=== PATIENT | female | born 1950 | race Caucasian/White ===

== ENCOUNTER 2016-10-30 04:18 | Inpatient (IN) | payer MEDICARE ==
[2016-10-30] MEDS ORDERED: SODIUM CHLORIDE 0.9% 1,000 ML IV STA (04:33)
[2016-10-30] MEDS ORDERED: ASPIRIN 81 MG CHEW PO STA (04:33)
--- NOTE | 2016-10-30 04:39 | ED ---
SOB HPI - General Chief Complaint: Chest Pain Stated Complaint: Chest Pain Time Seen by Provider: 10/30/16 04:29 Source: patient Mode of arrival: ambulatory Limitations: no limitations - History of Present Illness Initial Comments: This patient is a 66-year-old woman with history of congestive heart failure woke a little longer and hour ago feeling short of breath. She states that it also feels that her chest is tight. When the symptoms seem to be worsening rather than getting better she came here for treatment. Patient states she felt fine prior to going to bed last night MD Complaint: shortness of breath Onset/Timin -: hour(s) Severity: mild Quality: other (Tight) Consistency: constant Improves With: nothing Worsens With: lying flat Known History Of: congestive heart failure - Related Data Home Oxygen Therapy: No Home Medications Medication Instructions Recorded Confirmed Atorvastatin [Lipitor] 80 mg PO DAILY 12/29/13 04/21/15 Escitalopram [Lexapro] 10 mg PO DAILY 12/29/13 04/21/15 Ferrous Sulfate [Feosol] 325 mg PO TID 12/29/13 04/21/15 Furosemide [Lasix] 40 mg PO BID 12/29/13 04/21/15 Previous Rx's Medication Instructions Recorded Aspirin 325 mg PO DAILY tab 04/27/15 Famotidine [Pepcid] 20 mg PO DAILY tab 04/27/15 INSULIN LISPRO (humaLOG) [humaLOG 0 unit SQ ACHS vial 04/27/15 (formulary)] Isosorbide Mononitrate ER [Imdur] 120 mg PO DAILY tab.er.24h 04/27/15 Levofloxacin [Levaquin] 500 mg PO Q48H #5 tab 04/27/15 Magic Cup 1 each PO TID-W/MEALS cup 04/27/15 amLODIPine [Norvasc] 10 mg PO DAILY tab 04/27/15 cloNIDine 0.3 MG/24HR PATCH 1 patch TRANSDERM Q7D patch 04/27/15 [Catapres-TTS] hydrALAZINE HCL [Apresoline] 50 mg PO BID tab 04/27/15 Allergies Allergy/AdvReac Type Severity Reaction Status Date / Time morphine Allergy Unknown Verified 10/30/16 04:27 Review of Systems ROS Statement: Those systems with pertinent positive or pertinent negative responses have been documented in the HPI. ROS Other: All systems not noted in ROS Statement are negative. Constitutional: Denies: fever, chills, weakness Respiratory: Reports: as per HPI, dyspnea. Denies: cough, wheezes, hemoptysis Cardiovascular: Reports: as per HPI, chest pain, orthopnea. Denies: palpitations, edema, syncope Gastrointestinal: Denies: abdominal pain, nausea, vomiting Genitourinary: Denies: dysuria, hematuria Musculoskeletal: Denies: back pain Skin: Denies: rash Neurological: Denies: headache, weakness, numbness Past Medical History Past Medical History: CVA/TIA, Diabetes Mellitus, Hyperlipidemia, Hypertension, Myocardial Infarction ([place]) Additional Past Medical History / Comment(s): Breast cancer Last Myocardial Infarction Date:: unkn History of Any Multi-Drug Resistant Organisms: None Reported Past Surgical History: Breast Surgery, Section, Heart Catheterization With Stent, Hysterectomy Additional Past Surgical History / Comment(s): masectomy-bilateral Past Anesthesia/Blood Transfusion Reactions: No Reported Reaction Date of Last Stent Placement:: unkn Past Psychological History: No Psychological Hx Reported Smoking Status: Never smoker Past Alcohol Use History: None Reported Past Drug Use History: None Reported - Past Family History Father Family Medical History: Cancer (Lung), Coronary Artery Disease (CAD), Diabetes Mellitus Additional Family Medical History / Comment(s): Father of heart disease at age 63 yrs. Mother Family Medical History: Cancer (colon) Additional Family Medical History / Comment(s): Mother had colon cancer. Brother(s) Family Medical History: Cancer (Myelodysplasia), Diabetes Mellitus Sister(s) Family Medical History: Cancer (Breast, ovarian, lung) General Exam Limitations: no limitations General appearance: alert, anxious, in distress Head exam: Present: atraumatic, normocephalic Eye exam: Present: normal appearance. Absent: scleral icterus, conjunctival injection ENT exam: Present: normal oropharynx Respiratory exam: Present: normal lung sounds bilaterally. Absent: respiratory distress, wheezes, rales, rhonchi, stridor Cardiovascular Exam: Present: regular rate, normal rhythm, normal heart sounds. Absent: systolic murmur, diastolic murmur, rubs, gallop GI/Abdominal exam: Present: soft. Absent: distended, tenderness, guarding, rebound Extremities exam: Present: normal inspection, normal capillary refill. Absent: pedal edema, calf tenderness Back exam: Present: normal inspection. Absent: CVA tenderness (R), CVA tenderness (L) Neurological exam: Present: alert Skin exam: Present: warm, intact, normal color, diaphoretic. Absent: rash Course Vital Signs 10/30/16 10/30/16 10/30/16 04:23 04:52 04:57 Temperature 98.8 F Pulse Rate 85 86 82 Respiratory 18 20 20 Rate Blood Pressure 228/96 175/80 171/77 O2 Sat by Pulse 78 L 92 L Oximetry 10/30/16 10/30/16 10/30/16 05:10 05:58 06:13 Temperature Pulse Rate 89 78 74 Respiratory 18 18 18 Rate Blood Pressure 168/74 202/84 177/75 O2 Sat by Pulse 96 Oximetry 10/30/16 06:30 Temperature Pulse Rate 77 Respiratory 18 Rate Blood Pressure 180/75 O2 Sat by Pulse 94 L Oximetry Medical Decision Making - Lab Data Result diagrams: 10/30/16 04:50 10/30/16 04:50 Lab Results 10/30/16 10/30/16 10/30/16 Range/Units 04:50 04:50 04:50 WBC 13.8 H (3.8-10.6) k/uL RBC 3.84 (3.80-5.40) m/uL Hgb 11.1 L (11.4-16.0) gm/dL Hct 34.8 (34.0-46.0) % MCV 90.6 (80.0-100.0) fL MCH 28.8 (25.0-35.0) pg MCHC 31.8 (31.0-37.0) g/dL RDW 14.0 (11.5-15.5) % Plt Count 220 (150-450) k/uL Neutrophils % 81 % Lymphocytes % 12 % Monocytes % 4 % Eosinophils % 2 % Basophils % 0 % Neutrophils # 11.2 H (1.3-7.7) k/uL Lymphocytes # 1.6 (1.0-4.8) k/uL Monocytes # 0.5 (0-1.0) k/uL Eosinophils # 0.3 (0-0.7) k/uL Basophils # 0.1 (0-0.2) k/uL PT 9.8 (9.0-12.0) sec INR 1.0 (<1.2) APTT 23.3 (22.0-30.0) sec Sodium (137-145) mmol/L Potassium (3.5-5.1) mmol/L Chloride (98-107) mmol/L Carbon Dioxide (22-30) mmol/L Anion Gap mmol/L BUN (7-17) mg/dL Creatinine (0.52-1.04) mg/dL Est GFR (MDRD) Af Amer (>60 ml/min/1.73 sqM) Est GFR (MDRD) Non-Af (>60 ml/min/1.73 sqM) Glucose (74-99) mg/dL Calcium (8.4-10.2) mg/dL Magnesium (1.6-2.3) mg/dL Total Bilirubin (0.2-1.3) mg/dL AST (14-36) U/L ALT (9-52) U/L Alkaline Phosphatase (38-126) U/L Troponin I (0.000-0.034) ng/mL NT-Pro-B Natriuret Pep 5260 pg/mL Total Protein (6.3-8.2) g/dL Albumin (3.5-5.0) g/dL 10/30/16 10/30/16 Range/Units 04:50 04:50 WBC (3.8-10.6) k/uL RBC (3.80-5.40) m/uL Hgb (11.4-16.0) gm/dL Hct (34.0-46.0) % MCV (80.0-100.0) fL MCH (25.0-35.0) pg MCHC (31.0-37.0) g/dL RDW (11.5-15.5) % Plt Count (150-450) k/uL Neutrophils % % Lymphocytes % % Monocytes % % Eosinophils % % Basophils % % Neutrophils # (1.3-7.7) k/uL Lymphocytes # (1.0-4.8) k/uL Monocytes # (0-1.0) k/uL Eosinophils # (0-0.7) k/uL Basophils # (0-0.2) k/uL PT (9.0-12.0) sec INR (<1.2) APTT (22.0-30.0) sec Sodium 139 (137-145) mmol/L Potassium 4.5 (3.5-5.1) mmol/L Chloride 112 H (98-107) mmol/L Carbon Dioxide 14 L (22-30) mmol/L Anion Gap 13 mmol/L BUN 50 H (7-17) mg/dL Creatinine 2.80 H (0.52-1.04) mg/dL Est GFR (MDRD) Af Amer 20 (>60 ml/min/1.73 sqM) Est GFR (MDRD) Non-Af 17 (>60 ml/min/1.73 sqM) Glucose 172 H (74-99) mg/dL Calcium 8.8 (8.4-10.2) mg/dL Magnesium 1.9 (1.6-2.3) mg/dL Total Bilirubin 0.5 (0.2-1.3) mg/dL AST 18 (14-36) U/L ALT 28 (9-52) U/L Alkaline Phosphatase 81 (38-126) U/L Troponin I 0.050 H* (0.000-0.034) ng/mL NT-Pro-B Natriuret Pep pg/mL Total Protein 7.3 (6.3-8.2) g/dL Albumin 3.9 (3.5-5.0) g/dL Disposition Clinical Impression: Acute exacerbation of CHF (congestive heart failure), Chronic renal disease, Elevated troponin I measurement Disposition: ADMITTED IP TO THIS [facility] Condition: Poor Referrals: Karen Stephen III, MD [Primary Care Provider] - 1-2 days
[2016-10-30] MEDS: NITROGLYCERIN SL TABS 0.4 MG TAB SUBLINGUAL STA ×4 (04:48→05:11)
[2016-10-30 05:01] LABS: Basophils # (A) 0.1 k/uL (0-0.2); Basophils % (A) 0 %; CH 28.4; CHCM 31.6; Eosinophils # (A) 0.3 k/uL (0-0.7); Eosinophils % (A) 2 %; HCT 34.8 % (34.0-46.0); HDW 2.49; HGB 11.1 gm/dL (11.4-16.0); Luc # (Auto) 0.13; Luc % (Auto) 1; Lymphocytes # (A) 1.6 k/uL (1.0-4.8); Lymphocytes % (A) 12 %; MCH 28.8 pg (25.0-35.0); MCHC 31.8 g/dL (31.0-37.0); MCV 90.6 fL (80.0-100.0); Mean Platelet Volume 7.4; Monocytes # (A) 0.5 k/uL (0-1.0); Monocytes % (A) 4 %; Neutrophils # (A) 11.2 k/uL (1.3-7.7); Neutrophils % (A) 81 %; RBC 3.84 m/uL (3.80-5.40); WBC 13.8 k/uL (3.8-10.6)
[2016-10-30 05:15] LABS: Calcium 8.8 mg/dL (8.4-10.2); Magnesium 1.9 mg/dL (1.6-2.3); Potassium 4.5 mmol/L (3.5-5.1); Total Bilirubin 0.5 mg/dL (0.2-1.3); Total Protein 7.3 g/dL (6.3-8.2)
--- NOTE | 2016-10-30 05:32 | XR ---
EXAM: XR Chest, 1 View CLINICAL HISTORY: Reason: chest pain TECHNIQUE: Frontal view of the chest. COMPARISON: Radiographs the chest dated 04/23/2015 FINDINGS: Lungs: Bilateral perihilar infiltrates suggesting mild CHF. Asymmetric ill-defined subtle opacification of the left lower lung zone, which may represent a breast shadow. Pleural space: Unremarkable. No pneumothorax. Heart: The heart is again noted to be mildly enlarged. Mediastinum: Stable. Bones/joints: Osteopenia suggested. IMPRESSION: 1. Mild cardiomegaly with evidence of mild CHF. 2. Asymmetric ill-defined subtle opacification of the left lower lung zone, which likely represents breast shadow. If there is clinical concern for left lower lung zone pathology, - and lateral views of the chest recommended for further evaluation.
[2016-10-30] MEDS ORDERED: NITROGLYCERIN-D5W PMX 50 MG in DEXTROSE/WATER 1 250ML.BAG IV ONE (06:01)
[2016-10-30 06:09] LABS: Partial Thromboplastin Time 23.3 sec (22.0-30.0); Prothrombin Time 9.8 sec (9.0-12.0)
[2016-10-30] MEDS ORDERED: LEVOFLOXACIN 500 MG TAB PO SCH (06:15)
[2016-10-30] MEDS ORDERED: cloNIDine 0.3 MG/24HR PATCH 1 PATCH PATCH TRANSDERM SCH (06:15)
[2016-10-30] MEDS ORDERED: MAGIC CUP PO SCH (07:30)
[2016-10-30] MEDS ORDERED: ESCITALOPRAM 10 MG TAB PO SCH (09:00)
[2016-10-30] MEDS ORDERED: ISOSORBIDE MONONITRATE ER 60 MG TAB.ER.24H PO SCH (09:00)
[2016-10-30] MEDS ORDERED: hydrALAZINE HCL 50 MG TAB PO SCH (09:00)
[2016-10-30] MEDS ORDERED: FUROSEMIDE 40 MG TAB PO SCH (09:00)
[2016-10-30] MEDS ORDERED: HYDROCORTISONE 1% CREAM 30 GM TUBE TOPICAL PRN (10:56)
[2016-10-30] MEDS ORDERED: FUROSEMIDE 10 MG/ML 4 ML VIAL IV SCH (11:15)
[2016-10-30 11:38] LABS: Glucose,Whole Blood 174 mg/dL (75-99)
[2016-10-30] MEDS ORDERED: HEPARIN SODIUM,PORCINE 5,000 UNIT/ML 1 ML VIAL IV PRN (11:57)
[2016-10-30] MEDS ORDERED: HEPARIN SODIUM,PORCINE 5,000 UNIT/ML 1 ML VIAL IV ONE (12:15)
[2016-10-30 13:23] LABS: Creatine Kinase MB 1.5 ng/mL (0.0-2.4)
[2016-10-30 13:29] LABS: Troponin I 0.051 ng/mL (0.000-0.034)
--- NOTE | 2016-10-30 13:33 | NM ---
EXAMINATION TYPE: NM pul vent and perfuse DATE OF EXAM: 10/30/2016 COMPARISON: NONE HISTORY: Chest pain TECHNIQUE: Utilizing inhalation of 66.4 mCi Tc 99m DTPA aerosol and intravenous injection of 5.5 mCi of Tc 99m MAA, ventilation and perfusion images are acquired post injection in multiple projections. FINDINGS: There is fairly uniform normal ventilation and perfusion of the lungs. There is no mismatch. There is no segmental type perfusion defect. IMPRESSION: Normal exam. There is a very low probability of pulmonary embolism.
[2016-10-30] MEDS: ASPIRIN 325 MG TAB PO SCH (13:35)
[2016-10-30] MEDS: FAMOTIDINE 20 MG TAB PO SCH (13:35)
[2016-10-30] MEDS: ATORVASTATIN 80 MG TAB PO SCH (13:35)
[2016-10-30] MEDS: amLODIPine 10 MG TAB PO SCH (13:35)
[2016-10-30] MEDS: FERROUS SULFATE 325 MG TAB PO SCH ×3 (13:36→20:37)
[2016-10-30] MEDS: FUROSEMIDE 10 MG/ML 4 ML VIAL IV SCH ×2 (13:36→20:37)
[2016-10-30] MEDS: HEPARIN SODIUM,PORCINE/D5W PMX 25,000 UNIT in DEXTROSE/WATER 1 500ML.BAG IV SCH (13:37)
[2016-10-30] MEDS: hydrALAZINE HCL 25 MG TAB PO SCH ×2 (13:45→20:37)
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
--- NOTE | 2016-10-30 15:54 | US ---
EXAMINATION TYPE: US venous doppler duplex LE DATE OF EXAM: 10/30/2016 3:48 PM COMPARISON: NONE CLINICAL HISTORY: R/O DVT. Swelling 1 day earlier this week. Hx CHF SIDE PERFORMED: Bilateral TECHNIQUE: The lower extremity deep venous system is examined utilizing real time linear array sonog davida with graded compression, doppler sonography and color-flow sonography. VESSELS IMAGED: External Iliac Vein (EIV) Common Femoral Vein Deep Femoral Vein Greater Saphenous Vein * Femoral Vein Popliteal Vein Small Saphenous Vein * Proximal Calf Veins (* superficial vessels) Right Leg: Negative for DVT Left Leg: Negative for DVT IMPRESSION: Normal exam. No evidence of deep venous thrombosis in left and right leg.
[2016-10-30 17:03] LABS: Glucose,Whole Blood 148 mg/dL (75-99)
--- NOTE | 2016-10-30 18:03 | CONS ---
This is a 66 year lady with a known history of CAD, chronic CKD. She underwent stenting of the RCA performed by me a few years ago. She is under the care of Dr. Cervantes because of her chronic renal failure. She came into the hospital with three to four days history of weight gain, shortness of breath, also had some chest pressure when she came in. Upon her arrival, her blood pressure was elevated. She has been placed on nitroglycerine drip and creatinine remains 2.8. She also had elevated BNP and also elevated D. dimer. After arrival, her blood pressure has optimized. She is feeling better. She denies any chest discomfort. On arrival, her pressure was 228/96. Nitroglycerine was given. She is feeling better. Her shortness of breath has improved. However, she has elevated D. dimer and chronic kidney disease. Cannot exclude progression of CAD but risk of worsening renal failure is quite high with her chronic CKD. However, I am recommending that we will fully heparinize her, await input from nephrology regarding diuresis and we will perform a VQ scan to rule out pulmonary embolism and continue IV heparin for the time being. We will also obtain a venous Doppler and resume all her home medications. Her breathing is somewhat better. She denies chest pain at the time of my evaluation. Past medical history: 1. CAD with previous history of percutaneous coronary intervention of RCA. 2. Chronic kidney disease. 3. Hypertension. 4. History of diastolic dysfunction. 5. History of breast cancer, details are unclear. Medications at home include: 1. Insulin. 2. Aspirin. 3. Imdur. 4. Amlodipine. 5. Clonidine. 6. Hydralazine. 7. Lasix. 8. Atorvastatin. 9. Carvedilol 6.25 mg b.i.d. ALLERGIES: She is ALLERGIC TO MORPHINE. On examination, blood pressure is 170/80. Pulse rate is about 70 per minute and regular. HEENT unremarkable. Fundus was not examined by me. Neck is supple. There is JVD of about 1 cm. No carotid bruit. Heart exam reveals S1, S2 with a short systolic murmur. Lungs revealed bilateral decent air entry. Abdomen is soft. Nontender. Lower extremities revealed 1+ edema. Central nervous system is grossly within normal limits. EKG revealed sinus mechanism. IVCD, left ventricular hypertrophy type picture, leftward axis. Laboratory data suggests troponin of 0.05, subsequent troponins will be obtained. BNP is up to 50 to 60. D. dimer is 3.21. The patient's white count is also elevated up to 13.8 but chest x-ray reveals mostly evidence of cardiomegaly with mild CHF. There is question of left lower lung opacification , cannot rule out infiltrate. IMPRESSION: 1. Exacerbation of congestion failure in a patient with chronic kidney disease. 2. Progression of chronic kidney disease with mild acute component. 3. History of coronary artery disease, previous RCA PCI. 4. Type 2 diabetes mellitus. 5. Hypertension. RECOMMENDATIONS: I am recommending that we continue current medications but wean off the IV nitroglycerine. Put her on Nitro paste. We will also give her IV heparin as per protocol. Obtain a VQ scan. Venous Doppler. Resume home medications. Additional troponins will be checked. Seek input from nephrology. Prognosis for this patient is somewhat guarded because of her multiple comorbid conditions. YESY
[2016-10-30 19:02] LABS: Troponin I 0.056 ng/mL (0.000-0.034)
[2016-10-30 20:50] LABS: Glucose,Whole Blood 171 mg/dL (75-99)
[2016-10-30] MEDS ORDERED: NITROGLYCERIN SL TABS 0.4 MG TAB SUBLINGUAL ONE (23:55)
[2016-10-31] MEDS: NITROGLYCERIN SL TABS 0.4 MG TAB SUBLINGUAL STA ×2 (00:03→00:19)
[2016-10-31] MEDS ORDERED: HYDROmorphone 1 MG/ML 1 ML SYRINGE IVP STA (00:37)
[2016-10-31] MEDS ORDERED: amLODIPine 5 MG TAB PO STA (00:38)
[2016-10-31] MEDS ORDERED: CARVEDILOL 6.25 MG TAB PO STA (00:40)
[2016-10-31 05:57] LABS: Glucose,Whole Blood 182 mg/dL (75-99)
[2016-10-31 06:38] LABS: Basophils % (A) 0 %; CH 28.3; CHCM 30.3; Eosinophils # (A) 0.2 k/uL (0-0.7); Eosinophils % (A) 2 %; HCT 31.3 % (34.0-46.0); HDW 2.33; HGB 9.7 gm/dL (11.4-16.0); Hypochromasia Moderate; Luc # (Auto) 0.13; Luc % (Auto) 1; Lymphocytes # (A) 1.3 k/uL (1.0-4.8); Lymphocytes % (A) 13 %; MCHC 30.9 g/dL (31.0-37.0); MCV 93.7 fL (80.0-100.0); Mean Platelet Volume 7.8; Monocytes # (A) 0.4 k/uL (0-1.0); Monocytes % (A) 4 %; Neutrophils # (A) 8.2 k/uL (1.3-7.7); Neutrophils % (A) 80 %; RBC 3.34 m/uL (3.80-5.40); WBC 10.3 k/uL (3.8-10.6); WBC (Perox) 10.71
[2016-10-31] MEDS ORDERED: cloNIDine HCL 0.2 MG TAB PO STA (06:43)
[2016-10-31 06:46] LABS: Calcium 8.7 mg/dL (8.4-10.2); Potassium 4.4 mmol/L (3.5-5.1)
[2016-10-31] MEDS: HEPARIN SODIUM,PORCINE/D5W PMX 25,000 UNIT in DEXTROSE/WATER 1 500ML.BAG IV SCH (07:03)
[2016-10-31] MEDS ORDERED: CARVEDILOL 6.25 MG TAB PO SCH ×2 (07:30)
[2016-10-31 08:03] LABS: Hemoglobin A1C 7.5 % (4.2-6.1)
[2016-10-31] MEDS: ESCITALOPRAM 20 MG TAB PO SCH (08:48)
[2016-10-31] MEDS: amLODIPine 10 MG TAB PO SCH (08:48)
[2016-10-31] MEDS: ATORVASTATIN 80 MG TAB PO SCH (08:48)
[2016-10-31] MEDS: ASPIRIN 325 MG TAB PO SCH (08:48)
[2016-10-31] MEDS: ALLOPURINOL 100 MG TAB PO SCH (08:48)
[2016-10-31] MEDS: FERROUS SULFATE 325 MG TAB PO SCH ×3 (08:49→17:34)
[2016-10-31] MEDS: FAMOTIDINE 20 MG TAB PO SCH (08:49)
[2016-10-31] MEDS: FUROSEMIDE 10 MG/ML 4 ML VIAL IV SCH ×2 (08:50→20:14)
[2016-10-31] MEDS: hydrALAZINE HCL 25 MG TAB PO SCH ×3 (08:51→20:14)
[2016-10-31] MEDS: LOSARTAN 50 MG TAB PO SCH (08:52)
[2016-10-31] MEDS ORDERED: ISOSORBIDE MONONITRATE ER 30 MG TAB.ER.24H PO SCH (09:00)
[2016-10-31] MEDS ORDERED: ISOSORBIDE MONONITRATE ER 30 MG TAB.ER.24H PO ONE (10:00)
[2016-10-31] MEDS ORDERED: hydrALAZINE HCL 20 MG/ML 1 ML VIAL IVP PRN (10:32)
--- NOTE | 2016-10-31 10:33 | P.NPCON ---
History of Present Illness - History of Present Illness Reason for consultation: Acute kidney injury on chronic kidney disease History of present illness: Patient is a 66-year-old female seen in renal consultation for acute kidney injury on chronic any disease. Patient has chronic kidney disease stage IV secondary to diabetic kidney disease and nephrosclerosis with baseline creatinine near 2.5. Her creatinine today is at 2.86. Patient presented to the hospital with dyspnea thus been going on for the last few days and suddenly became worse which prompted her to come to the hospital. She is known to have an ejection fraction of 30%. Patient states she takes Lasix 40 mg once daily. She denies any history of smoking and is now history of COPD. Her chest x-ray did suggest mild vascular congestion and she is currently on Lasix 40 mg IV twice daily. Her dyspnea is improved. Denies lower extremity edema. Denies use of NSAIDs. Denies vomiting or diarrhea. She follows with us as an outpatient and is currently not interested in renal replacement therapy however is considering peritoneal dialysis. Vital signs are stable. General: The patient appeared well nourished and normally developed. HEENT: Head exam is unremarkable. Neck is without jugular venous distension. LUNGS: Lungs are clear to auscultation and percussion. Breath sounds decreased. HEART: Rate and Rhythm are regular. First and second heart sounds normal. No murmurs, rubs or gallops. ABDOMEN: Abdominal exam reveals normal bowel sounds. Non-tender and non- distended. No evidence of peritonitis. EXTREMITITES: No clubbing, cyanosis, or edema. Past Medical History Past Medical History: CVA/TIA, Diabetes Mellitus, Hyperlipidemia, Hypertension, Myocardial Infarction ([place]) Additional Past Medical History / Comment(s): Breast cancer Last Myocardial Infarction Date:: 2010 History of Any Multi-Drug Resistant Organisms: None Reported Past Surgical History: Breast Surgery, Section, Heart Catheterization With Stent, Hysterectomy Additional Past Surgical History / Comment(s): masectomy-bilateral Past Anesthesia/Blood Transfusion Reactions: Previous Problems w/ Anesthesia Additional Past Anesthesia/Blood Transfusion Reaction / Comment(s): "hard time waking up from anestheia" Date of Last Stent Placement:: 2010 Past Psychological History: Depression Additional Psychological History / Comment(s): increased dose of lexapro-sees counselor Smoking Status: Never smoker Past Alcohol Use History: None Reported Past Drug Use History: None Reported - Past Family History Father Family Medical History: Cancer, Coronary Artery Disease (CAD), Diabetes Mellitus Additional Family Medical History / Comment(s): Father of heart disease at age 63 yrs. Mother Family Medical History: Cancer Additional Family Medical History / Comment(s): Mother had colon cancer. Brother(s) Family Medical History: Cancer, Diabetes Mellitus Sister(s) Family Medical History: Cancer Medications and Allergies Home Medications Medication Instructions Recorded Confirmed Type Atorvastatin [Lipitor] 80 mg PO DAILY 12/29/13 04/21/15 History Furosemide [Lasix] 40 mg PO DAILY 12/29/13 10/30/16 History Allopurinol [Zyloprim] 200 mg PO DAILY 10/30/16 10/30/16 History Biotin 5 mg PO DAILY 10/30/16 10/30/16 History Calcitriol [Rocaltrol] 0.5 mcg PO MOWEFR 10/30/16 10/30/16 History Carvedilol [Coreg] 6.25 mg PO DAILY 10/30/16 10/30/16 History Escitalopram [Lexapro] 20 mg PO DAILY 10/30/16 10/30/16 History Hydrocortisone Cream 1 applic TOPICAL BID PRN 10/30/16 10/30/16 History [Hydrocortisone 2.5% Cream] Isosorbide Mononitrate ER [Imdur] 30 mg PO DAILY 10/30/16 10/30/16 History Losartan Potassium [Cozaar] 50 mg PO DAILY 10/30/16 10/30/16 History Allergies Allergy/AdvReac Type Severity Reaction Status Date / Time morphine Allergy Unknown Verified 10/30/16 08:19 Physical Exam Vitals: Vital Signs Temp Pulse Pulse Resp BP Pulse Ox 10/31/16 06:12 98.3 F 78 18 186/82 93 L 10/31/16 04:00 99.4 F 79 18 184/78 10/31/16 00:24 92 185/80 10/31/16 00:17 93 214/91 10/31/16 00:07 91 214/92 10/31/16 00:01 97.5 F L 86 18 205/78 93 L 10/31/16 00:00 18 10/30/16 20:00 98.1 F 74 18 191/90 93 L 10/30/16 16:00 98 F 71 16 159/58 95 07/16/17 12:00 98 F 71 16 190/78 95 Intake and Output 10/30/16 10/31/16 10/31/16 22:59 06:59 14:59 Intake Total 99.333 180.058 396.817 Output Total 600 450 Balance -500.667 -269.942 396.817 Intake: Intake, IV Titration 99.333 180.058 396.817 Amount Heparin Sodium,Porcine/ 99.333 180.058 156.817 D5w Pmx 25,000 unit In Dextrose/Water 1 500ml. bag @ 10.776 UNITS/KG/HR 20 mls/hr IV .Q24H BC Rx #:[id number] Sodium Chloride 0.9% 1, 240 000 ml @ 20 mls/hr IV . Q24H STA Rx#:[id number] Output: Urine 600 450 Other: Voiding Method Toilet Toilet # Voids 1 Weight 92.4 kg Results - Lab Results Most recent lab results Calcium 8.7 mg/dL (8.4-10.2) 10/31/16 05:53 Magnesium 1.9 mg/dL (1.6-2.3) 10/30/16 04:50 10/31/16 05:53 10/31/16 05:53 Assessment and Plan Plan: Assessment: #1. Nonoliguric acute kidney injury mostly prerenal from diuresis. Creatinine 2.86 today. #2. Chronic kidney disease stage IV secondary to diabetic kidney disease and nephrosclerosis with baseline creatinine near 2.5. #3. Volume overload. #4. Systolic CHF with ejection fraction of 30%. #5. Anemia. Rule out iron deficiency. #6. Metabolic acidosis secondary to chronic kidney disease. #7. Hypertension with chronic kidney disease. Uncontrolled. Plan: Continue Lasix 40 mg IV twice daily for now. Avoid nephrotoxic agents and hypotensive episodes. Check iron studies. Add oral sodium bicarbonate supplementation. Add hydralazine 10 mg IV every 4 hours as needed for systolic blood pressure greater than 160. Repeat electrolytes in the morning. Thank you for the consultation. I will continue to follow the patient with you during her hospital stay.
--- NOTE | 2016-10-31 11:42 | ECHOF ---
Referral Reason:Heart Failure MEASUREMENTS -------- HEIGHT: 160.0 cm WEIGHT: 92.1 kg BP: 186/82 RVIDd: 3.1 cm (< 3.3) IVSd: 1.5 cm (0.6 - 1.1) LVIDd: 5.0 cm (3.9 - 5.3) LVPWd: 1.7 cm (0.6 - 1.1) IVSs: 1.9 cm LVIDs: 3.5 cm LVPWs: 1.4 cm LAESV Index (A-L): 32.53 ml/m Ao Diam: 2.7 cm (2.0 - 3.7) AV Cusp: 1.9 cm (1.5 - 2.6) LA Diam: 5.2 cm (2.7 - 3.8) MV E Murray: 0.98 m/s MV DecT: 282 ms MV A Murray: 0.84 m/s MV E/A Ratio: 1.16 FINDINGS -------- Sinus rhythm. This was a techncally difficult study with suboptimal views, , Definity utilized for enhancement of images. The left ventricular size is normal. There is moderate concentric left ventricular hypertrophy. Overall left ventricular systolic function is normal with, an EF between 55 - 60 %. The right ventricle is normal in size. LA is midly dilated 29-33ml/m2. The right atrial size is normal. 1.5MG OF DEFINITY UTLIZED: 2 OR MORE WALL SEGMENTS NOT VISUALIZED. The aortic valve was not well visualized. There is no evidence of aortic regurgitation. Mild mitral annular calcification present. Mild mitral regurgitation is present. Mild tricuspid regurgitation present. There is no evidence of pulmonary hypertension. The right ventricular systolic pressure, as measured by Doppler, is {RVSP}. The pulmonic valve was not well visualized. There is no pulmonic regurgitation present. The aortic root size is normal. There is no pericardial effusion. CONCLUSIONS -------- 1. Sinus rhythm. 2. Mild tricuspid regurgitation present. 3. There is no evidence of pulmonary hypertension. 4. There is no pulmonic regurgitation present. 5. The aortic root size is normal. 6. There is no pericardial effusion. 7. This was a techncally difficult study with suboptimal views, , Definity utilized for enhancement of images. 8. There is moderate concentric left ventricular hypertrophy. 9. Overall left ventricular systolic function is normal with, an EF between 55 - 60 %. 10. LA is midly dilated 29-33ml/m2. 11. 1.5MG OF DEFINITY UTLIZED: 2 OR MORE WALL SEGMENTS NOT VISUALIZED. 12. The aortic valve was not well visualized. 13. Mild mitral annular calcification present. 14. Mild mitral regurgitation is present. MECHANICAL ESTIMATOR: Juany Gallardo RDCS
[2016-10-31 12:00] LABS: Glucose,Whole Blood 164 mg/dL (75-99)
[2016-10-31 12:20] LABS: % Iron Saturation 17.2 % (20-50)
[2016-10-31 14:18] VITALS: BMI 36.1
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
[2016-10-31] MEDS ORDERED: BENZOCAINE/MENTHOL LOZENG 1 EACH LOZENGE MUCOUS MEM PRN (15:43)
[2016-10-31 16:29] LABS: Glucose,Whole Blood 157 mg/dL (75-99)
[2016-10-31] MEDS: CARVEDILOL 12.5 MG TAB PO SCH (16:50)
--- NOTE | 2016-10-31 18:15 | PN ---
This patient is 66 years of age, has chronic kidney disease, diabetes, hypertension, previous PCI. Her troponin profile does not suggest myocardial injury. She has had difficulty to control blood pressure which has been addressed. BP is much better now. I added Clonidine to her regimen. Vital signs are stable. S1, S2 are heard normally. Lungs revealed improved air entry. Abdomen and lower extremity exam is unremarkable. I explained to the patient and that that doing a cardiac catheterization at this time would probably hurt her kidneys and that the troponin elevation is not significant and symptoms also suggest more of a hypertension and shortness of breath with some volume overload type picture. I will await input from nephrology. No intervention cardiac alvarez. We will control blood pressure and continue current medications. Physical exam-alvarez, there are no new significant findings. Blood pressure last one was 135/70. S1, S2 heard normally. Short systolic murmur noted . Lungs revealed improved air entry. JVD is 1 cm. The rest of the physical examination is unchanged. MTDD
[2016-10-31] MEDS: SODIUM BICARBONATE TAB 650 MG TAB PO SCH (20:14)
[2016-10-31 20:43] LABS: Glucose,Whole Blood 179 mg/dL (75-99)
[2016-10-31] MEDS ORDERED: cloNIDine HCL 0.2 MG TAB PO SCH (21:00)
[2016-11-01 05:57] LABS: Glucose,Whole Blood 162 mg/dL (75-99)
[2016-11-01 06:49] LABS: Basophils % (A) 0 %; CH 28.5; CHCM 31.7; Eosinophils # (A) 0.2 k/uL (0-0.7); Eosinophils % (A) 2 %; HCT 28.6 % (34.0-46.0); HDW 2.29; Luc # (Auto) 0.12; Luc % (Auto) 1; Lymphocytes # (A) 1.6 k/uL (1.0-4.8); Lymphocytes % (A) 16 %; MCH 28.4 pg (25.0-35.0); MCHC 31.4 g/dL (31.0-37.0); MCV 90.4 fL (80.0-100.0); Monocytes # (A) 0.4 k/uL (0-1.0); Monocytes % (A) 4 %; Neutrophils # (A) 7.2 k/uL (1.3-7.7); Neutrophils % (A) 76 %; RBC 3.16 m/uL (3.80-5.40); RDW 14.1 % (11.5-15.5); WBC 9.5 k/uL (3.8-10.6); WBC (Perox) 10.12
[2016-11-01] MEDS: FERROUS SULFATE 325 MG TAB PO SCH (06:51)
[2016-11-01] MEDS: CARVEDILOL 12.5 MG TAB PO SCH (06:51)
[2016-11-01 07:32] LABS: Calcium 8.4 mg/dL (8.4-10.2); Magnesium 1.8 mg/dL (1.6-2.3); Potassium 4.2 mmol/L (3.5-5.1)
[2016-11-01] MEDS: FUROSEMIDE 10 MG/ML 4 ML VIAL IV SCH (08:57)
[2016-11-01] MEDS: ALLOPURINOL 100 MG TAB PO SCH (08:57)
[2016-11-01] MEDS: ASPIRIN 325 MG TAB PO SCH (08:58)
[2016-11-01] MEDS: ESCITALOPRAM 20 MG TAB PO SCH (08:58)
[2016-11-01] MEDS: FAMOTIDINE 20 MG TAB PO SCH (08:58)
[2016-11-01] MEDS: LOSARTAN 50 MG TAB PO SCH (08:58)
[2016-11-01] MEDS: SODIUM BICARBONATE TAB 650 MG TAB PO SCH (08:58)
[2016-11-01] MEDS: hydrALAZINE HCL 25 MG TAB PO SCH (08:58)
[2016-11-01] MEDS: amLODIPine 10 MG TAB PO SCH (08:58)
[2016-11-01] MEDS: ATORVASTATIN 80 MG TAB PO SCH (09:00)
[2016-11-01] MEDS ORDERED: ISOSORBIDE MONONITRATE ER 60 MG TAB.ER.24H PO SCH (09:00)
[2016-11-01 09:30] VITALS: RESP 18
[2016-11-01 11:27] LABS: Glucose,Whole Blood 149 mg/dL (75-99)
[2016-11-01 12:12] VITALS: BP 128/58; PULSE 75; TEMP 98.3
--- NOTE | 2016-11-01 12:23 | P.PN ---
Subjective Patient is seen in follow-up for acute kidney injury on chronic kidney disease. Patient has chronic kidney disease stage IV secondary to diabetic kidney disease and nephrosclerosis with baseline creatinine near 2.5. Creatinine is elevated at 3.22 today. Her dyspnea is resolved. She denies any chest pain. No lower extremity edema. Admits to good urine output. No vomiting or diarrhea. Vital signs are stable. General: The patient appeared well nourished and normally developed. HEENT: Head exam is unremarkable. Neck is without jugular venous distension. LUNGS: Lungs are clear to auscultation and percussion. Breath sounds decreased. HEART: Rate and Rhythm are regular. First and second heart sounds normal. No murmurs, rubs or gallops. ABDOMEN: Abdominal exam reveals normal bowel sounds. Non-tender and non- distended. No evidence of peritonitis. EXTREMITITES: No clubbing, cyanosis, or edema. Objective - Vital Signs Vital signs: Vital Signs Temp 98.3 F 11/01/16 12:00 Pulse 75 11/01/16 12:00 Resp 18 11/01/16 12:00 BP 128/58 11/01/16 12:00 Pulse Ox 99 11/01/16 12:00 Intake & Output 10/31/16 11/01/16 11/01/16 18:59 06:59 18:59 Intake Total 1476.817 120 270 Output Total 400 Balance 1076.817 120 270 Weight 92.4 kg 93.3 kg Intake: IV 120 Sodium Chloride 0.9% 1, 120 000 ml @ 20 mls/hr IV . Q24H STA Rx#:[id number] Intake, IV Titration 396.817 Amount Heparin Sodium,Porcine/ 156.817 D5w Pmx 25,000 unit In Dextrose/Water 1 500ml. bag @ 10.776 UNITS/KG/HR 20 mls/hr IV .Q24H BC Rx #:[id number] Sodium Chloride 0.9% 1, 240 000 ml @ 20 mls/hr IV . Q24H STA Rx#:[id number] Oral 1080 270 Output: Urine 400 Other: Voiding Method Toilet Toilet # Voids 3 200 - Labs CBC & Chem 7: 11/01/16 06:25 11/01/16 06:25 Labs: Abnormal Lab Results - Last 24 Hours (Table) 10/31/16 10/31/16 10/31/16 Range/Units 05:53 16:27 20:41 RBC (3.80-5.40) m/uL Hgb (11.4-16.0) gm/dL Hct (34.0-46.0) % APTT (22.0-30.0) sec Sodium (137-145) mmol/L Chloride (98-107) mmol/L Carbon Dioxide (22-30) mmol/L BUN (7-17) mg/dL Creatinine (0.52-1.04) mg/dL Glucose (74-99) mg/dL POC Glucose (mg/dL) 157 H 179 H (75-99) mg/dL TIBC 215 L (265-497) ug/dL % Saturation 17.2 L (20-50) % 11/01/16 11/01/16 11/01/16 Range/Units 05:56 06:25 06:25 RBC 3.16 L (3.80-5.40) m/uL Hgb 9.0 L (11.4-16.0) gm/dL Hct 28.6 L (34.0-46.0) % APTT 45.9 H (22.0-30.0) sec Sodium (137-145) mmol/L Chloride (98-107) mmol/L Carbon Dioxide (22-30) mmol/L BUN (7-17) mg/dL Creatinine (0.52-1.04) mg/dL Glucose (74-99) mg/dL POC Glucose (mg/dL) 162 H (75-99) mg/dL TIBC (265-497) ug/dL % Saturation (20-50) % 11/01/16 11/01/16 Range/Units 06:25 11:26 RBC (3.80-5.40) m/uL Hgb (11.4-16.0) gm/dL Hct (34.0-46.0) % APTT (22.0-30.0) sec Sodium 136 L (137-145) mmol/L Chloride 108 H (98-107) mmol/L Carbon Dioxide 15 L (22-30) mmol/L BUN 61 H (7-17) mg/dL Creatinine 3.22 H (0.52-1.04) mg/dL Glucose 151 H (74-99) mg/dL POC Glucose (mg/dL) 149 H (75-99) mg/dL TIBC (265-497) ug/dL % Saturation (20-50) % Assessment and Plan Plan: Assessment: #1. Nonoliguric acute kidney injury mostly prerenal from diuresis. Creatinine 3.22 today. #2. Chronic kidney disease stage IV secondary to diabetic kidney disease and nephrosclerosis with baseline creatinine near 2.5. #3. Volume overload. #4. Diastolic CHF. Echocardiogram this admission revealed preserved ejection fraction. #5. Anemia. Iron deficiency present. #6. Metabolic acidosis secondary to chronic kidney disease. #7. Hypertension with chronic kidney disease. Controlled. Plan: Hold tonight's dose of Lasix. Will resume 40 mg orally once daily starting tomorrow. Avoid nephrotoxic agents and hypotensive episodes. Ferrlicit 125 mg IV once today. Maintain oral sodium bicarbonate supplementation. Patient is not too keen on renal replacement therapy however is considering peritoneal dialysis.
[2016-11-01] MEDS ORDERED: SODIUM FERRIC GLUCONAT-SUCROSE 125 MG in SODIUM CHLORIDE 0.9% 100 ML IVPB SCH (13:00)
[2016-11-01] MEDS ORDERED: SODIUM BICARBONATE TAB 650 MG TAB PO SCH (16:00)
--- NOTE | 2016-11-01 17:31 | PN ---
Mrs. Luu is doing better today. Her diuresis has improved her edema. She feels better. Her blood pressure control is optimized; however, with the clonidine she felt very sleepy, and we will therefore leave her on hydralazine only. Blood pressure is 128/70, pulse rate 70 per minute. S1, S2 heard normally. Short systolic murmur noted. Lungs are clear. Abdomen and lower extremity exam unchanged. Creatinine has gone up. From a cardiac standpoint, no intervention necessary. She can be discharged whenever it is okay with her admitting physician and social security specialist. Cardiac-alvarez, I am not recommending any intervention, and her troponin profile does not suggest any myocardial injury. She will have definitely worsening of her renal function. Echocardiogram from yesterday revealed a preserved ejection fraction of 55% to 60% with normal right ventricular size and no significant pulmonary hypertension. Will therefore continue current medical therapy. YESY
[2016-11-01] MEDS ORDERED: HEPARIN SODIUM,PORCINE 5,000 UNIT/ML 1 ML VIAL SQ SCH (21:00)
--- NOTE | 2016-11-02 16:03 | P.DS ---
Providers Date of admission: 10/30/16 06:11 Expected date of discharge: 11/01/16 Attending physician: Huber Loredo Consults: 10/30/16 06:11 Consult Physician Routine Consulting Provider: Edwin Rivera Consult Reason/Comments: chf exacerbation. minimally elevated troponin. Do you want consulting provider notified?: Yes 10/30/16 12:01 Consult Physician Urgent Consulting Provider: Frances Cervantes Consult Reason/Comments: elevated BUN/CR-current patient Do you want consulting provider notified?: Yes Primary care physician: Karen Donaldson [facility] Course: Final Diagnoses: 1 shortness of breath;hypoxic respiratory failure-improved, related to acute on chronic CHF systolic dysfunction. Echogram showed normal ejection fraction. #2 chest pressure-like sensation with minimal elevation of troponin: Minimal elevation of troponin can be from chronic kidney disease. Troponin profile not suggestive of myocardial injury as per cardiology . 3 cardiomyopathy 4 acute renal failure: Secondary to congestive heart failure exacerbation expected to improve with IV Lasix. #5 chronic kidney disease probably stage III or 4 secondary to diabetic nephropathy. #6 hypertension #7 depression #8 hyperlipidemia #9 anemia, iron deficient, of chronic disease Hospital course: This is a 66-year-old female came in with CHF exacerbation, repeat echogram showed normal ejection fraction. Evaluated by both cardiology and nephrology. Diuresed well on Lasix IV. Significant clinical improvement. Cleared by both nephrology and cardiology for discharge. Discharge diuretics as per nephrology. Patient is being discharged home in a stable condition with guarded prognosis. The impression and plan of care has been dictated as directed as a scribe. : I performed a H&P examination of this patient and discussed the same with the dictator. I agree with the dictator's note. Any additional findings/opinions/ etc. will be noted. Patient Condition at Discharge: Stable Plan - Discharge Summary New Discharge Prescriptions: New Carvedilol [Coreg*] 12.5 mg PO BID-W/MEALS #30 tab Furosemide [Lasix] 40 mg PO DAILY #30 tablet hydrALAZINE HCL [Apresoline] 75 mg PO TID #270 tab Isosorbide Mononitrate ER [Imdur] 60 mg PO DAILY #30 tab Sodium Bicarbonate Tab 1,300 mg PO TID #60 tab Continue Atorvastatin [Lipitor] 80 mg PO DAILY Aspirin 325 mg PO DAILY tab amLODIPine [Norvasc] 10 mg PO DAILY tab Escitalopram [Lexapro] 20 mg PO DAILY Allopurinol [Zyloprim] 200 mg PO DAILY Biotin 5 mg PO DAILY Calcitriol [Rocaltrol] 0.5 mcg PO MOWEFR Hydrocortisone Cream [Hydrocortisone 2.5% Cream] 1 applic TOPICAL BID PRN PRN Reason: On Chest Losartan Potassium [Cozaar] 50 mg PO DAILY Discontinued Furosemide [Lasix] 40 mg PO DAILY hydrALAZINE HCL [Apresoline] 50 mg PO BID tab Isosorbide Mononitrate ER [Imdur] 30 mg PO DAILY Carvedilol [Coreg] 6.25 mg PO DAILY Discharge Medication List Atorvastatin [Lipitor] 80 mg PO DAILY 12/29/13 [History] Aspirin 325 mg PO DAILY tab 04/27/15 [Rx] amLODIPine [Norvasc] 10 mg PO DAILY tab 04/27/15 [Rx] Allopurinol [Zyloprim] 200 mg PO DAILY 10/30/16 [History] Biotin 5 mg PO DAILY 10/30/16 [History] Calcitriol [Rocaltrol] 0.5 mcg PO MOWEFR 10/30/16 [History] Escitalopram [Lexapro] 20 mg PO DAILY 10/30/16 [History] Hydrocortisone Cream [Hydrocortisone 2.5% Cream] 1 applic TOPICAL BID PRN [History] Losartan Potassium [Cozaar] 50 mg PO DAILY 10/30/16 [History] Carvedilol [Coreg*] 12.5 mg PO BID-W/MEALS #30 tab 11/01/16 [Rx] Furosemide [Lasix] 40 mg PO DAILY #30 tablet 11/01/16 [Rx] Isosorbide Mononitrate ER [Imdur] 60 mg PO DAILY #30 tab 11/01/16 [Rx] Sodium Bicarbonate Tab 1,300 mg PO TID #60 tab 11/01/16 [Rx] hydrALAZINE HCL [Apresoline] 75 mg PO TID #270 tab 11/01/16 [Rx] Follow up Appointment(s)/Referral(s): [facility], [NON-STAFF] - Karen Stephen III, MD [Primary Care Provider] - 3 Days Phillip Lala DO [STAFF PHYSICIAN] - 1 Week Ambulatory/Diagnostic Orders: Complete Blood Count w/diff [LAB.AMB] Time Frame: 3 Days, Location: Determined By Patient Activity/Diet/Wound Care/Special Instructions: Confirm cardiology follow-up appointment prior to discharge. Diet: Cardiac"CHF DIET", CRICKET Activity: Limited until follow Discharge Disposition: HOME SELF-CARE
== END 2016-11-01 16:11 | disposition home health service (06) | DRG 291 ==
LOC: EC 04:18 → 6SEL 06:11
PROVIDERS: ADMIT Hospitalist; ATTEND Hospitalist
DX: I13.0 Hypertensive heart and chronic kidney disease with heart failure and stage 1 through stage 4 chronic kidney disease, or unspecified chronic kidney disease (principal); I50.23 Acute on chronic systolic (congestive) heart failure; J96.91 Respiratory failure, unspecified with hypoxia; N17.9 Acute kidney failure, unspecified; E87.2 Acidosis; N18.4 Chronic kidney disease, stage 4 (severe); E11.21 Type 2 diabetes mellitus with diabetic nephropathy; I42.9 Cardiomyopathy, unspecified; D72.829 Elevated white blood cell count, unspecified; T50.1X5A Adverse effect of loop [high-ceiling] diuretics, initial encounter; D50.9 Iron deficiency anemia, unspecified; E11.22 Type 2 diabetes mellitus with diabetic chronic kidney disease; I25.10 Atherosclerotic heart disease of native coronary artery without angina pectoris; E78.5 Hyperlipidemia, unspecified; F32.9 Major depressive disorder, single episode, unspecified; R74.8 Abnormal levels of other serum enzymes; D63.8 Anemia in other chronic diseases classified elsewhere; R01.1 Cardiac murmur, unspecified; R07.89 Other chest pain; T46.5X5A Adverse effect of other antihypertensive drugs, initial encounter; Z79.899 Other long term (current) drug therapy; I25.2 Old myocardial infarction; Z86.73 Personal history of transient ischemic attack (TIA), and cerebral infarction without residual deficits; Z85.3 Personal history of malignant neoplasm of breast; Z88.5 Allergy status to narcotic agent; Z83.3 Family history of diabetes mellitus; Z82.49 Family history of ischemic heart disease and other diseases of the circulatory system; Z80.0 Family history of malignant neoplasm of digestive organs; Z79.82 Long term (current) use of aspirin; Z79.4 Long term (current) use of insulin; Z80.41 Family history of malignant neoplasm of ovary; Z80.3 Family history of malignant neoplasm of breast; Z80.1 Family history of malignant neoplasm of trachea, bronchus and lung; Z83.2 Family history of diseases of the blood and blood-forming organs and certain disorders involving the immune mechanism; Z90.710 Acquired absence of both cervix and uterus; Z90.13 Acquired absence of bilateral breasts and nipples; Z95.5 Presence of coronary angioplasty implant and graft; Z71.3 Dietary counseling and surveillance
CPT/HCPCS: 36415; 71010; 78582; 80048; 80053; 82553; 82728; 83036; 83540; 83550; 83735; 83880; 84484; 85025; 85379; 85610; 85730; 93005; 93306; 93970; 96365; 96366; 99285

== ENCOUNTER 2016-11-02 09:37 | Inpatient (IN) | payer MEDICARE ==
[2016-11-02] MEDS ORDERED: CARVEDILOL 12.5 MG TAB PO STA (10:14)
[2016-11-02] MEDS ORDERED: NITROGLYCERIN SL TABS 0.4 MG TAB SUBLINGUAL STA (10:14)
[2016-11-02] MEDS ORDERED: amLODIPine 10 MG TAB PO STA (10:14)
[2016-11-02 11:07] LABS: Basophils % (A) 0 %; CH 28.4; Eosinophils # (A) 0.3 k/uL (0-0.7); Eosinophils % (A) 3 %; HCT 30.4 % (34.0-46.0); HDW 2.37; HGB 9.8 gm/dL (11.4-16.0); Luc # (Auto) 0.12; Luc % (Auto) 1; Lymphocytes # (A) 0.8 k/uL (1.0-4.8); Lymphocytes % (A) 7 %; MCH 28.8 pg (25.0-35.0); MCHC 32.2 g/dL (31.0-37.0); MCV 89.3 fL (80.0-100.0); Mean Platelet Volume 7.9; Monocytes # (A) 0.5 k/uL (0-1.0); Monocytes % (A) 5 %; Neutrophils # (A) 9.7 k/uL (1.3-7.7); Neutrophils % (A) 85 %; RDW 13.8 % (11.5-15.5); WBC 11.5 k/uL (3.8-10.6); WBC (Perox) 11.68
--- NOTE | 2016-11-02 11:14 | XR ---
EXAMINATION TYPE: XR chest 2V DATE OF EXAM: 11/02/2016 HISTORY: difficulty breathing. REFERENCE: Previous study dated 10/30/2016. FINDINGS: The heart is enlarged. There is vascular congestion and interstitial change. I could not ex clude a small right effusion.. IMPRESSION: FINDINGS MOST CONSISTENT WITH MILD HEART FAILURE.
[2016-11-02 11:15] LABS: Calcium 8.8 mg/dL (8.4-10.2); Magnesium 1.9 mg/dL (1.6-2.3); Partial Thromboplastin Time 22.6 sec (22.0-30.0); Potassium 4.3 mmol/L (3.5-5.1); Prothrombin Time 9.8 sec (9.0-12.0); Total Bilirubin 0.5 mg/dL (0.2-1.3); Total Protein 6.8 g/dL (6.3-8.2)
[2016-11-02] MEDS ORDERED: FUROSEMIDE 10 MG/ML 2 ML VIAL IV STA (11:34)
[2016-11-02 11:40] LABS: Troponin I 0.034 ng/mL (0.000-0.034)
[2016-11-02 11:44] LABS: Creatine Kinase MB 3.1 ng/mL (0.0-2.4)
[2016-11-02] MEDS ORDERED: NALOXONE 0.4 MG/ML 1 ML VIAL IV PRN (12:06)
[2016-11-02] MEDS ORDERED: ONDANSETRON 4 MG/2 ML VIAL IVP PRN (12:06)
--- NOTE | 2016-11-02 12:14 | ED ---
General Adult HPI - General Chief complaint: Shortness of Breath Stated complaint: diff breathing Time Seen by Provider: 11/02/16 10:03 Source: patient, family, RN notes reviewed, old records reviewed Mode of arrival: wheelchair Limitations: no limitations - History of Present Illness Initial comments: 66 yo female presenting with worsening dyspnea since this morning. Patient was discharged yesterday proximally 4 PM after being treated for congestive heart failure exacerbation. Patient states she went home did not take any of her medications and this morning took only her Lasix. She was in the process of organizing her medications and did not have a chance to take them. She did not eat dinner last night. Denies cough. Denies chest pain. Denies lower extremity swelling. Patient states she slept on her back overnight. - Related Data Home Medications Medication Instructions Recorded Confirmed Atorvastatin [Lipitor] 80 mg PO DAILY 12/29/13 11/02/16 Allopurinol [Zyloprim] 200 mg PO DAILY 10/30/16 11/02/16 Biotin 5 mg PO DAILY 10/30/16 11/02/16 Calcitriol [Rocaltrol] 0.5 mcg PO MOWEFR 10/30/16 11/02/16 Escitalopram [Lexapro] 20 mg PO DAILY 10/30/16 11/02/16 Hydrocortisone Cream 1 applic TOPICAL BID PRN 10/30/16 11/02/16 [Hydrocortisone 2.5% Cream] Losartan Potassium [Cozaar] 50 mg PO DAILY 10/30/16 11/02/16 Previous Rx's Medication Instructions Recorded Aspirin 325 mg PO DAILY tab 04/27/15 amLODIPine [Norvasc] 10 mg PO DAILY tab 04/27/15 Carvedilol [Coreg*] 12.5 mg PO BID-W/MEALS #30 tab 11/01/16 Furosemide [Lasix] 40 mg PO DAILY #30 tablet 11/01/16 Isosorbide Mononitrate ER [Imdur] 60 mg PO DAILY #30 tab 11/01/16 Sodium Bicarbonate Tab 1,300 mg PO TID #60 tab 11/01/16 hydrALAZINE HCL [Apresoline] 75 mg PO TID #270 tab 11/01/16 Allergies Allergy/AdvReac Type Severity Reaction Status Date / Time morphine Allergy Unknown Verified 11/02/16 10:38 Review of Systems ROS Statement: Those systems with pertinent positive or pertinent negative responses have been documented in the HPI. ROS Other: All systems not noted in ROS Statement are negative. Cardiovascular: Denies: chest pain, palpitations Past Medical History Past Medical History: Heart Failure, CVA/TIA, Diabetes Mellitus, Hyperlipidemia , Hypertension, Myocardial Infarction ([place]) Additional Past Medical History / Comment(s): Breast cancer Last Myocardial Infarction Date:: 2010 History of Any Multi-Drug Resistant Organisms: None Reported Past Surgical History: Breast Surgery, Section, Heart Catheterization With Stent, Hysterectomy Additional Past Surgical History / Comment(s): masectomy-bilateral Past Anesthesia/Blood Transfusion Reactions: Previous Problems w/ Anesthesia Additional Past Anesthesia/Blood Transfusion Reaction / Comment(s): "hard time waking up from anestheia" Date of Last Stent Placement:: 2010 Past Psychological History: Depression Smoking Status: Never smoker Past Alcohol Use History: None Reported Past Drug Use History: None Reported - Past Family History Father Family Medical History: Cancer, Coronary Artery Disease (CAD), Diabetes Mellitus Additional Family Medical History / Comment(s): Father of heart disease at age 63 yrs. Mother Family Medical History: Cancer Additional Family Medical History / Comment(s): Mother had colon cancer. Brother(s) Family Medical History: Cancer, Diabetes Mellitus Sister(s) Family Medical History: Cancer General Exam Limitations: no limitations General appearance: alert, in distress Head exam: Present: atraumatic, normocephalic Eye exam: Present: normal appearance, PERRL ENT exam: Present: normal exam Neck exam: Present: normal inspection, full ROM Respiratory exam: Present: rales Cardiovascular Exam: Present: regular rate, normal rhythm GI/Abdominal exam: Present: soft. Absent: distended Extremities exam: Present: normal capillary refill. Absent: pedal edema Neurological exam: Present: alert, oriented X3 Psychiatric exam: Present: normal affect, normal mood Skin exam: Present: warm, dry Course Vital Signs 11/02/16 11/02/16 11/02/16 09:55 10:01 10:55 Temperature 97.8 F 97.8 F Pulse Rate 79 74 78 Respiratory 20 16 16 Rate Blood Pressure 194/81 199/85 185/79 O2 Sat by Pulse 82 L 93 L 93 L Oximetry - Reevaluation(s) Reevaluation #1: 11/02/16 12:11 Reevaluation patient is feeling better with supplemental oxygen. Blood pressure is improved. EKG Findings - EKG Comments: EKG Findings:: EKG shows normal sinus rhythm with ventricular 76, HI interval 146 QRS duration 102, QTC is 490, there is no ST segment elevation or depression , no T-wave abnormality Medical Decision Making - Medical Decision Making 66 yo female with history of congestive heart failure, CAD status post stenting , diabetes, hypertension, and stage IV kidney disease presenting with worsening dyspnea over the past 24 hours. She was discharged at 4 PM last night. She did not take her antihypertensive medications on initial evaluation patient's hypoxic at 82 and has a blood pressure 210/130. Patient is given her normal antihypertensives as well as sublingual nitroglycerin and supplemental oxygen. On reevaluation her blood pressures improved oxygen saturation is in the mid 90s on 4 L. Patient is also given IV Lasix and will be admitted for blood pressure control and diuresis. Diagnosis: Congestive heart failure exacerbation with hypoxia - Lab Data Result diagrams: 11/02/16 10:35 11/02/16 10:35 Lab Results 11/02/16 11/02/16 11/02/16 Range/Units 10:35 10:35 10:35 WBC 11.5 H (3.8-10.6) k/uL RBC 3.40 L (3.80-5.40) m/uL Hgb 9.8 L (11.4-16.0) gm/dL Hct 30.4 L (34.0-46.0) % MCV 89.3 (80.0-100.0) fL MCH 28.8 (25.0-35.0) pg MCHC 32.2 (31.0-37.0) g/dL RDW 13.8 (11.5-15.5) % Plt Count 179 (150-450) k/uL Neutrophils % 85 % Lymphocytes % 7 % Monocytes % 5 % Eosinophils % 3 % Basophils % 0 % Neutrophils # 9.7 H (1.3-7.7) k/uL Lymphocytes # 0.8 L (1.0-4.8) k/uL Monocytes # 0.5 (0-1.0) k/uL Eosinophils # 0.3 (0-0.7) k/uL Basophils # 0.0 (0-0.2) k/uL PT (9.0-12.0) sec INR (<1.2) APTT (22.0-30.0) sec Sodium 138 (137-145) mmol/L Potassium 4.3 (3.5-5.1) mmol/L Chloride 108 H (98-107) mmol/L Carbon Dioxide 16 L (22-30) mmol/L Anion Gap 14 mmol/L BUN 68 H (7-17) mg/dL Creatinine 3.49 H (0.52-1.04) mg/dL Est GFR (MDRD) Af Amer 16 (>60 ml/min/1.73 sqM) Est GFR (MDRD) Non-Af 13 (>60 ml/min/1.73 sqM) Glucose 165 H (74-99) mg/dL Calcium 8.8 (8.4-10.2) mg/dL Magnesium 1.9 (1.6-2.3) mg/dL Total Bilirubin 0.5 (0.2-1.3) mg/dL AST 18 (14-36) U/L ALT 25 (9-52) U/L Alkaline Phosphatase 66 (38-126) U/L Total Creatine Kinase 135 (30-135) U/L CK-MB (CK-2) 3.1 H* (0.0-2.4) ng/mL CK-MB (CK-2) Rel Index 2.3 Troponin I 0.034 (0.000-0.034) ng/mL NT-Pro-B Natriuret Pep pg/mL Total Protein 6.8 (6.3-8.2) g/dL Albumin 3.7 (3.5-5.0) g/dL 11/02/16 11/02/16 Range/Units 10:35 10:35 WBC (3.8-10.6) k/uL RBC (3.80-5.40) m/uL Hgb (11.4-16.0) gm/dL Hct (34.0-46.0) % MCV (80.0-100.0) fL MCH (25.0-35.0) pg MCHC (31.0-37.0) g/dL RDW (11.5-15.5) % Plt Count (150-450) k/uL Neutrophils % % Lymphocytes % % Monocytes % % Eosinophils % % Basophils % % Neutrophils # (1.3-7.7) k/uL Lymphocytes # (1.0-4.8) k/uL Monocytes # (0-1.0) k/uL Eosinophils # (0-0.7) k/uL Basophils # (0-0.2) k/uL PT 9.8 (9.0-12.0) sec INR 1.0 (<1.2) APTT 22.6 (22.0-30.0) sec Sodium (137-145) mmol/L Potassium (3.5-5.1) mmol/L Chloride (98-107) mmol/L Carbon Dioxide (22-30) mmol/L Anion Gap mmol/L BUN (7-17) mg/dL Creatinine (0.52-1.04) mg/dL Est GFR (MDRD) Af Amer (>60 ml/min/1.73 sqM) Est GFR (MDRD) Non-Af (>60 ml/min/1.73 sqM) Glucose (74-99) mg/dL Calcium (8.4-10.2) mg/dL Magnesium (1.6-2.3) mg/dL Total Bilirubin (0.2-1.3) mg/dL AST (14-36) U/L ALT (9-52) U/L Alkaline Phosphatase (38-126) U/L Total Creatine Kinase (30-135) U/L CK-MB (CK-2) (0.0-2.4) ng/mL CK-MB (CK-2) Rel Index Troponin I (0.000-0.034) ng/mL NT-Pro-B Natriuret Pep 8000 pg/mL Total Protein (6.3-8.2) g/dL Albumin (3.5-5.0) g/dL Critical Care Time Critical Care Time: Yes Total Critical Care Time: 35 Disposition Clinical Impression: Congestive heart failure, Diastolic congestive heart failure Disposition: ADMITTED IP TO THIS [facility] Condition: Stable Referrals: Karen Stephen III, MD [Primary Care Provider] - 1-2 days Decision to Admit Reason: Admit from EC Decision Date: 11/02/16 Decision Time: 12:14
[2016-11-02] MEDS ORDERED: HYDROCORTISONE 1% CREAM 30 GM TUBE TOPICAL PRN (14:15)
--- NOTE | 2016-11-02 16:37 | P.HPIM ---
History of Present Illness 66 yo female presenting with worsening dyspnea since this morning. Patient was discharged yesterday after being treated for congestive heart failure exacerbation. Patient states she went home did not take any of her medications and this morning took only her Lasix. She was in the process of organizing her medications and did not have a chance to take them. She did not eat dinner last night. Denies cough. Denies chest pain. Denies lower extremity swelling. Patient states she slept on her back overnight. patient is coming up orthopnea and PND and patient is found to have worsening pulmonary edema on the chest x-ray patient was started on IV Lasix here. Review of Systems REVIEW OF SYSTEMS: CONSTITUTIONAL: No fever, no malaise, no fatigue. HEENT: No recent visual problems or hearing problems. Denied any sore throat. CARDIOVASCULAR: No chest pain,no palpitations, no syncope. PULMONARY: no cough, no hemoptysis. GASTROINTESTINAL: No diarrhea, no nausea, no vomiting, no abdominal pain. Normoactive bowel sounds. NEUROLOGICAL: No headaches, no weakness, no numbness. HEMATOLOGICAL: Denies any bleeding or petechiae. GENITOURINARY: Denies any burning micturition, frequency, or urgency. MUSCULOSKELETAL/RHEUMATOLOGICAL: Denies any joint pain, swelling, or any muscle pain. ENDOCRINE: Denies any polyuria or polydipsia. The rest of the 14-point review of systems is negative. Past Medical History Past Medical History: Cancer, Heart Failure, CVA/TIA, Diabetes Mellitus, Hyperlipidemia, Hypertension, Myocardial Infarction ([place]), Renal Disease, Seizure Disorder Additional Past Medical History / Comment(s): Pt recently admitted 10/30/16 hypoxic respiratory failure/chf. Other hx: Breast cancer with bilateral mastectomy and chemo, diet controlled diabetes, diabetic bilateral retinopathy, diabetic peripheral neuropathy, CKD stage IV, seizuer 02/2010, L patellar fx. Last Myocardial Infarction Date:: 2010 History of Any Multi-Drug Resistant Organisms: None Reported Past Surgical History: Breast Surgery, Section, Heart Catheterization With Stent, Hysterectomy Additional Past Surgical History / Comment(s): masectomy-bilateral Past Anesthesia/Blood Transfusion Reactions: Previous Problems w/ Anesthesia Additional Past Anesthesia/Blood Transfusion Reaction / Comment(s): "hard time waking up from anestheia". Pt has received blood in past without reaction. Date of Last Stent Placement:: 2010 Smoking Status: Never smoker - Past Family History Father Family Medical History: Cancer, Coronary Artery Disease (CAD), Diabetes Mellitus Additional Family Medical History / Comment(s): Father of heart disease at age 63 yrs. Mother Family Medical History: Cancer Additional Family Medical History / Comment(s): Mother had colon cancer. Brother(s) Family Medical History: Cancer, Diabetes Mellitus Sister(s) Family Medical History: Cancer Medications and Allergies Home Medications Medication Instructions Recorded Confirmed Type Atorvastatin [Lipitor] 80 mg PO DAILY 12/29/13 11/02/16 History Allopurinol [Zyloprim] 200 mg PO DAILY 10/30/16 11/02/16 History Biotin 5 mg PO DAILY 10/30/16 11/02/16 History Calcitriol [Rocaltrol] 0.5 mcg PO MOWEFR 10/30/16 11/02/16 History Escitalopram [Lexapro] 20 mg PO DAILY 10/30/16 11/02/16 History Hydrocortisone Cream 1 applic TOPICAL BID PRN 10/30/16 11/02/16 History [Hydrocortisone 2.5% Cream] Losartan Potassium [Cozaar] 50 mg PO DAILY 10/30/16 11/02/16 History Allergies Allergy/AdvReac Type Severity Reaction Status Date / Time morphine Allergy Unknown Verified 11/02/16 10:38 Physical Exam Vitals: Vital Signs Temp Pulse Pulse Resp BP BP Pulse Ox 11/02/16 15:40 98.5 F 70 20 149/64 96 11/02/16 15:06 74 18 11/02/16 12:45 98.0 F 69 18 176/79 96 11/02/16 10:55 78 16 185/79 93 L 11/02/16 10:01 97.8 F 74 16 199/85 93 L 11/02/16 09:55 97.8 F 79 20 194/81 82 L Intake and Output 11/02/16 11/02/16 11/02/16 06:59 14:59 22:59 Output Total 100 Balance -100 Output: Urine 100 Other: # Voids 1 0 Weight 90.718 kg Patient Weight 11/03/16 06:59 Weight 90.718 kg PHYSICAL EXAMINATION: GENERAL: The patient is alert and oriented x3, not in any acute distress. Well developed, well nourished. HEENT: Pupils are round and equally reacting to light. EOMI. No scleral icterus. No conjunctival pallor. Normocephalic, atraumatic. No pharyngeal erythema. No thyromegaly. CARDIOVASCULAR: S1 and S2 present. No murmurs, rubs, or gallops. PULMONARY: Chest is clear to auscultation, no wheezing or crackles. ABDOMEN: Soft, nontender, nondistended, normoactive bowel sounds. No palpable organomegaly. MUSCULOSKELETAL: No joint swelling or deformity. EXTREMITIES: No cyanosis, clubbing, or pedal edema. NEUROLOGICAL: Gross neurological examination did not reveal any focal deficits. SKIN: No rashes. Results CBC & Chem 7: 11/02/16 10:35 11/02/16 10:35 Labs: Abnormal Lab Results - Last 24 Hours (Table) 11/02/16 11/02/16 11/02/16 Range/Units 10:35 10:35 10:35 WBC 11.5 H (3.8-10.6) k/uL RBC 3.40 L (3.80-5.40) m/uL Hgb 9.8 L (11.4-16.0) gm/dL Hct 30.4 L (34.0-46.0) % Neutrophils # 9.7 H (1.3-7.7) k/uL Lymphocytes # 0.8 L (1.0-4.8) k/uL Chloride 108 H (98-107) mmol/L Carbon Dioxide 16 L (22-30) mmol/L BUN 68 H (7-17) mg/dL Creatinine 3.49 H (0.52-1.04) mg/dL Glucose 165 H (74-99) mg/dL CK-MB (CK-2) 3.1 H* (0.0-2.4) ng/mL Thrombosis Risk Factor Assmnt - Choose All That Apply Any of the Below Risk Factors Present?: Yes Each Factor Represents 1 point: Abnormal pulmonary function (COPD), Obesity ( BMI >25), Serious lung disease incl. pneumonia (< 1month) Other Risk Factors: Yes Each Risk Factor Represents 2 Points: Age 61-74 years Other congenital or acquired thrombophilia - If yes, enter type in comment: No Thrombosis Risk Factor Assessment Total Risk Factor Score: 5 Thrombosis Risk Factor Assessment Level: High Risk Assessment and Plan Plan: 1. congestive heart failure chronic past past diastolic dysfunctionwith acute exacerbation. She was started on IV Lasix. 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 #3 hypertension 4Hyperlipidemia 5 anemia of chronic disease #6 depression Above-mentioned chronic medical problems patient was continued on home medications.
[2016-11-02 17:12] LABS: Glucose,Whole Blood 140 mg/dL (75-99)
[2016-11-02] MEDS: INSULIN LISPRO (humaLOG) 300 UNIT/3 ML VIAL SQ SCH ×2 (17:18→21:53)
[2016-11-02] MEDS: SODIUM BICARBONATE TAB 650 MG TAB PO SCH ×2 (17:19→19:50)
[2016-11-02] MEDS: hydrALAZINE HCL 25 MG TAB PO SCH ×2 (17:19→19:49)
[2016-11-02] MEDS: CARVEDILOL 12.5 MG TAB PO SCH (17:19)
[2016-11-02 17:37] LABS: Creatine Kinase MB 2.7 ng/mL (0.0-2.4); Troponin I 0.053 ng/mL (0.000-0.034)
[2016-11-02] MEDS: FUROSEMIDE 10 MG/ML 4 ML VIAL IV SCH (19:49)
[2016-11-02 20:53] LABS: Hemoglobin A1C 7.3 % (4.2-6.1)
[2016-11-02 20:59] LABS: Glucose,Whole Blood 226 mg/dL (75-99)
[2016-11-02 23:09] LABS: Creatine Kinase MB 2.9 ng/mL (0.0-2.4); Troponin I 0.059 ng/mL (0.000-0.034)
[2016-11-03 06:21] LABS: Glucose,Whole Blood 149 mg/dL (75-99)
[2016-11-03 06:34] LABS: Basophils % (A) 0 %; CH 28.2; CHCM 31.4; Eosinophils # (A) 0.1 k/uL (0-0.7); Eosinophils % (A) 1 %; HCT 28.5 % (34.0-46.0); HDW 2.28; HGB 9.1 gm/dL (11.4-16.0); Luc # (Auto) 0.11; Luc % (Auto) 1; Lymphocytes % (A) 10 %; MCH 28.9 pg (25.0-35.0); MCV 90.3 fL (80.0-100.0); Mean Platelet Volume 7.7; Monocytes # (A) 0.5 k/uL (0-1.0); Monocytes % (A) 5 %; Neutrophils # (A) 8.3 k/uL (1.3-7.7); Neutrophils % (A) 83 %; RBC 3.16 m/uL (3.80-5.40); RDW 13.8 % (11.5-15.5); WBC 9.9 k/uL (3.8-10.6); WBC (Perox) 10.44
[2016-11-03] MEDS: INSULIN LISPRO (humaLOG) 300 UNIT/3 ML VIAL SQ SCH ×4 (06:36→21:08)
[2016-11-03] MEDS: CARVEDILOL 12.5 MG TAB PO SCH ×2 (06:36→17:18)
[2016-11-03 06:45] LABS: Calcium 8.7 mg/dL (8.4-10.2); Potassium 4.4 mmol/L (3.5-5.1)
[2016-11-03] MEDS: hydrALAZINE HCL 25 MG TAB PO SCH ×3 (07:41→21:09)
[2016-11-03] MEDS: ATORVASTATIN 80 MG TAB PO SCH (07:42)
[2016-11-03] MEDS: ALLOPURINOL 100 MG TAB PO SCH (07:42)
[2016-11-03] MEDS: SODIUM BICARBONATE TAB 650 MG TAB PO SCH ×3 (07:42→21:09)
[2016-11-03] MEDS: FUROSEMIDE 10 MG/ML 4 ML VIAL IV SCH ×2 (07:42→21:08)
[2016-11-03] MEDS: ISOSORBIDE MONONITRATE ER 60 MG TAB.ER.24H PO SCH (07:42)
[2016-11-03] MEDS: amLODIPine 10 MG TAB PO SCH (07:42)
[2016-11-03] MEDS: ASPIRIN 325 MG TAB PO SCH (07:42)
[2016-11-03] MEDS: ESCITALOPRAM 20 MG TAB PO SCH (07:42)
--- NOTE | 2016-11-03 09:23 | P.NPCON ---
History of Present Illness - Reason for Consult chronic renal failure - History of Present Illness Reason for consultation: Acute kidney injury on chronic kidney disease History of present illness: Patient is a 66-year-old female seen in consultation for acute kidney injury on chronic kidney disease. Patient has chronically disease stage IV with baseline creatinine near 2.5 secondary to diabetic kidney disease and nephrosclerosis. Patient was recently admitted to the hospital with dyspnea and was given IV diuretics. Her renal function is slightly worsened with creatinine at 3.2 to as of November 01 when she was discharged. Patient states she continued with her diuretics but again became dyspneic and presented to the hospital. She is noted to have diastolic CHF. Chest x-ray suggestive of mild vascular congestion. She is currently maintained on IV Lasix 40 mg twice daily and creatinine today is 3.5. She admits to good urine output. Denies chest pain. No vomiting or diarrhea. Denies use of NSAIDs. Hemodynamically she is stable. Denies fever or chills. No cough. Vital signs are stable. General: The patient appeared well nourished and normally developed. HEENT: Head exam is unremarkable. Neck is without jugular venous distension. LUNGS: Lungs are clear to auscultation and percussion. Breath sounds decreased. HEART: Rate and Rhythm are regular. First and second heart sounds normal. No murmurs, rubs or gallops. ABDOMEN: Abdominal exam reveals normal bowel sounds. Non-tender and non- distended. No evidence of peritonitis. EXTREMITITES: No clubbing, cyanosis, or edema. Past Medical History Past Medical History: Cancer, Heart Failure, CVA/TIA, Diabetes Mellitus, Hyperlipidemia, Hypertension, Myocardial Infarction ([place]), Renal Disease, Seizure Disorder Additional Past Medical History / Comment(s): Pt recently admitted 10/30/16 hypoxic respiratory failure/chf. Other hx: Breast cancer with bilateral mastectomy and chemo, diet controlled diabetes, diabetic bilateral retinopathy, diabetic peripheral neuropathy, CKD stage IV, seizuer 02/2010, L patellar fx. Last Myocardial Infarction Date:: 2010 History of Any Multi-Drug Resistant Organisms: None Reported Past Surgical History: Breast Surgery, Section, Heart Catheterization With Stent, Hysterectomy Additional Past Surgical History / Comment(s): masectomy-bilateral Past Anesthesia/Blood Transfusion Reactions: Previous Problems w/ Anesthesia Additional Past Anesthesia/Blood Transfusion Reaction / Comment(s): "hard time waking up from anestheia". Pt has received blood in past without reaction. Date of Last Stent Placement:: 2010 Smoking Status: Never smoker - Past Family History Father Family Medical History: Cancer, Coronary Artery Disease (CAD), Diabetes Mellitus Additional Family Medical History / Comment(s): Father of heart disease at age 63 yrs. Mother Family Medical History: Cancer Additional Family Medical History / Comment(s): Mother had colon cancer. Brother(s) Family Medical History: Cancer, Diabetes Mellitus Sister(s) Family Medical History: Cancer Medications and Allergies Home Medications Medication Instructions Recorded Confirmed Type Atorvastatin [Lipitor] 80 mg PO DAILY 12/29/13 11/02/16 History Allopurinol [Zyloprim] 200 mg PO DAILY 10/30/16 11/02/16 History Biotin 5 mg PO DAILY 10/30/16 11/02/16 History Calcitriol [Rocaltrol] 0.5 mcg PO MOWEFR 10/30/16 11/02/16 History Escitalopram [Lexapro] 20 mg PO DAILY 10/30/16 11/02/16 History Hydrocortisone Cream 1 applic TOPICAL BID PRN 10/30/16 11/02/16 History [Hydrocortisone 2.5% Cream] Losartan Potassium [Cozaar] 50 mg PO DAILY 10/30/16 11/02/16 History Allergies Allergy/AdvReac Type Severity Reaction Status Date / Time morphine Allergy Unknown Verified 11/02/16 10:38 Physical Exam Vitals: Vital Signs Temp Pulse Pulse Resp BP BP Pulse Ox 11/03/16 07:51 73 18 11/03/16 07:37 73 18 172/82 97 11/03/16 04:00 77 18 162/70 94 L 11/03/16 00:00 81 20 164/77 94 L 11/02/16 20:00 98.2 F 71 20 144/75 94 L 11/02/16 15:40 98.5 F 70 20 149/64 96 11/02/16 15:06 74 18 11/02/16 12:45 98.0 F 69 18 176/79 96 11/02/16 10:55 78 16 185/79 93 L 11/02/16 10:01 97.8 F 74 16 199/85 93 L 11/02/16 09:55 97.8 F 79 20 194/81 82 L Intake and Output 11/02/16 11/03/16 11/03/16 22:59 06:59 14:59 Intake Total 420 100 240 Balance 420 100 240 Intake: Oral 420 100 240 Other: Voiding Method Toilet Toilet Toilet # Voids 0 Weight 91.8 kg Results - Lab Results Most recent lab results Calcium 8.7 mg/dL (8.4-10.2) 11/03/16 06:09 Magnesium 1.9 mg/dL (1.6-2.3) 11/02/16 10:35 11/03/16 06:09 11/03/16 06:09 Assessment and Plan Plan: Assessment: #1. Nonoliguric acute kidney injury mostly prerenal secondary to diuresis. Creatinine up to 3.5 today. #2. Chronic kidney disease stage IV secondary to diabetic kidney disease and nephrosclerosis with baseline creatinine near 2.5. #3. Diastolic CHF. #4. Anemia of chronic kidney disease. Iron deficiency also noted increase in blood work. #5. Diabetes mellitus. #6. Metabolic acidosis secondary to chronic kidney disease. Plan: Continue with IV Lasix 40 mg twice daily for another 24 hours. Ferrlicit 125 mg IV daily for 3 days. First dose today. Maintain sodium bicarbonate supplementation. Avoid nephrotoxic agents and hypotensive episodes. Repeat electrolytes in the morning. Patient is not too keen on doing replacement therapy but has been considering peritoneal dialysis. Thank you for the consultation. I will continue to follow the patient with you during her hospital stay.
[2016-11-03 11:21] LABS: Glucose,Whole Blood 274 mg/dL (75-99)
--- NOTE | 2016-11-03 11:57 | P.CRDCN ---
History of Present Illness Consult date: 11/03/16 Reason for Consult (text): CHF exacerbation, elevated troponin Chief complaint: shortness of breath History of present illness: This is a pleasant 66-year-old female patient who was recently discharged home from the hospital. Apparently she had arrived home health company and did not take the time to organize and take her medications before going to bed that night. She will continue the morning and was feeling short of breath and presented back to the emergency department. She is complaining of orthopnea and PND and was found to have worsening pulmonary edema and started on IV Lasix. Her BNP was 8000. Incidentally her troponin level were mildly elevated at 0.034, 0.053 and 0.059. BUN and creatinine are elevated at 76 and 3.5, nephrology is on consult patient has a known history of stage IV chronic kidney disease. On examination, patient is resting comfortably with her head of bed flat. She denies further complaints of shortness of breath or orthopnea, PND. Patient verbalizes understanding of being compliant with medications upon discharge. Past Medical History Past Medical History: Cancer, Heart Failure, CVA/TIA, Diabetes Mellitus, Hyperlipidemia, Hypertension, Myocardial Infarction ([place]), Renal Disease, Seizure Disorder Additional Past Medical History / Comment(s): Pt recently admitted 10/30/16 hypoxic respiratory failure/chf. Other hx: Breast cancer with bilateral mastectomy and chemo, diet controlled diabetes, diabetic bilateral retinopathy, diabetic peripheral neuropathy, CKD stage IV, seizuer 02/2010, L patellar fx. Last Myocardial Infarction Date:: 2010 History of Any Multi-Drug Resistant Organisms: None Reported Past Surgical History: Breast Surgery, Section, Heart Catheterization With Stent, Hysterectomy Additional Past Surgical History / Comment(s): masectomy-bilateral Past Anesthesia/Blood Transfusion Reactions: Previous Problems w/ Anesthesia Additional Past Anesthesia/Blood Transfusion Reaction / Comment(s): "hard time waking up from anestheia". Pt has received blood in past without reaction. Date of Last Stent Placement:: 2010 Smoking Status: Never smoker - Past Family History Father Family Medical History: Cancer, Coronary Artery Disease (CAD), Diabetes Mellitus Additional Family Medical History / Comment(s): Father of heart disease at age 63 yrs. Mother Family Medical History: Cancer Additional Family Medical History / Comment(s): Mother had colon cancer. Brother(s) Family Medical History: Cancer, Diabetes Mellitus Sister(s) Family Medical History: Cancer Medications and Allergies Home Medications Medication Instructions Recorded Confirmed Type Atorvastatin [Lipitor] 80 mg PO DAILY 12/29/13 11/02/16 History Allopurinol [Zyloprim] 200 mg PO DAILY 10/30/16 11/02/16 History Biotin 5 mg PO DAILY 10/30/16 11/02/16 History Calcitriol [Rocaltrol] 0.5 mcg PO MOWEFR 10/30/16 11/02/16 History Escitalopram [Lexapro] 20 mg PO DAILY 10/30/16 11/02/16 History Hydrocortisone Cream 1 applic TOPICAL BID PRN 10/30/16 11/02/16 History [Hydrocortisone 2.5% Cream] Losartan Potassium [Cozaar] 50 mg PO DAILY 10/30/16 11/02/16 History Allergies Allergy/AdvReac Type Severity Reaction Status Date / Time morphine Allergy Unknown Verified 11/02/16 10:38 Physical Exam Vitals: Vital Signs Temp Pulse Pulse Resp BP BP Pulse Ox 11/03/16 11:11 71 18 11/03/16 11:10 98.0 F 71 18 140/60 95 11/03/16 07:51 73 18 11/03/16 07:37 73 18 172/82 97 11/03/16 04:00 77 18 162/70 94 L 11/03/16 00:00 81 20 164/77 94 L 11/02/16 20:00 98.2 F 71 20 144/75 94 L 11/02/16 15:40 98.5 F 70 20 149/64 96 11/02/16 15:06 74 18 11/02/16 12:45 98.0 F 69 18 176/79 96 Intake and Output 11/02/16 11/03/16 11/03/16 22:59 06:59 14:59 Intake Total 420 100 240 Balance 420 100 240 Intake: Oral 420 100 240 Other: Voiding Method Toilet Toilet Toilet # Voids 0 Weight 91.8 kg 91.8 kg Patient Weight 11/04/16 06:59 Weight 91.8 kg PHYSICAL EXAMINATION: HEENT: Head is atraumatic, normocephalic. Pupils equal, round. Neck is supple. There is no elevated jugular venous pressure. HEART EXAMINATION: Heart sounds regular, S1 and S2 normal. No murmur or gallop heard. CHEST EXAMINATION: Lungs reveal diminished air entry bilaterally. No chest wall tenderness is noted on palpation or with deep breathing. ABDOMEN: Soft, nontender. Bowel sounds are heard. No organomegaly noted. EXTREMITIES: 2+ peripheral pulses with evidence of trace peripheral edema and no calf tenderness noted. NEUROLOGIC patient is awake, alert and oriented x3. . Results 11/03/16 06:09 11/03/16 06:09 Cardiac Enzymes 11/02/16 11/02/16 Range/Units 16:29 22:20 CK-MB (CK-2) 2.7 H* 2.9 H* (0.0-2.4) ng/mL Troponin I 0.053 H* 0.059 H* (0.000-0.034) ng/mL CBC 11/03/16 Range/Units 06:09 WBC 9.9 (3.8-10.6) k/uL RBC 3.16 L (3.80-5.40) m/uL Hgb 9.1 L (11.4-16.0) gm/dL Hct 28.5 L (34.0-46.0) % Plt Count 175 (150-450) k/uL Comprehensive Metabolic Panel 11/03/16 Range/Units 06:09 Sodium 139 (137-145) mmol/L Potassium 4.4 (3.5-5.1) mmol/L Chloride 108 H (98-107) mmol/L Carbon Dioxide 17 L (22-30) mmol/L BUN 76 H (7-17) mg/dL Creatinine 3.50 H (0.52-1.04) mg/dL Glucose 141 H (74-99) mg/dL Calcium 8.7 (8.4-10.2) mg/dL Current Medications Generic Name Dose Route Start Last Admin Trade Name Freq PRN Reason Stop Dose Admin Allopurinol 200 mg 11/03/16 09:00 11/03/16 07:42 Zyloprim PO 200 mg DAILY BC Administration Amlodipine Besylate 10 mg 11/03/16 09:00 11/03/16 07:42 Norvasc PO 10 mg DAILY BC Administration Aspirin 325 mg 11/03/16 09:00 11/03/16 07:42 Aspirin PO 325 mg DAILY BC Administration Atorvastatin Calcium 80 mg 11/03/16 09:00 11/03/16 07:42 Lipitor PO 80 mg DAILY BC Administration Carvedilol 12.5 mg 11/02/16 17:30 11/03/16 06:36 Coreg PO 12.5 mg BID-W/MEALS BC Administration Escitalopram Oxalate 20 mg 11/03/16 09:00 11/03/16 07:42 Lexapro PO 20 mg DAILY BC Administration Furosemide 40 mg 11/02/16 21:00 11/03/16 07:42 Lasix IV 40 mg Q12HR [facility] Administration Hydralazine HCl 75 mg 11/02/16 16:00 11/03/16 07:41 Apresoline PO 75 mg TID [facility] Administration Hydrocortisone 1 applic 11/02/16 14:15 Hydrocortisone 1% Cream TOPICAL BID PRN On Chest Ferric Sodium Gluconate 125 mg 110 mls @ 100 mls/hr 11/04/16 09:00 / Sodium Chloride IVPB 11/07/16 09:01 DAILY [facility] Insulin Human Lispro 0 unit 11/02/16 17:30 11/03/16 06:36 Humalog SQ Not Given ACHS [facility] Protocol Isosorbide Mononitrate 60 mg 11/03/16 09:00 11/03/16 07:42 Imdur PO 60 mg DAILY [facility] Administration Naloxone HCl 0.2 mg 11/02/16 12:06 Narcan IV Q2M PRN Opioid Reversal Ondansetron HCl 4 mg 11/02/16 12:06 Zofran IVP Q8HR PRN Nausea And Vomiting Sodium Bicarbonate 1,300 mg 11/02/16 16:00 11/03/16 07:42 Sodium Bicarbonate Tab PO 1,300 mg TID [facility] Administration Intake and Output 11/02/16 11/03/16 11/03/16 22:59 06:59 14:59 Intake Total 420 100 240 Balance 420 100 240 Intake: Oral 420 100 240 Other: Voiding Method Toilet Toilet Toilet # Voids 0 Weight 91.8 kg 91.8 kg Patient Weight 11/04/16 06:59 Weight 91.8 kg 11/03/16 06:09 11/03/16 06:09 Assessment and Plan Plan: Assessment and plan #1 acute on chronic diastolic congestive heart failure #2 noncompliance with medications #3 hypertension #4 hyperlipidemia #5 anemia of chronic disease #6 mild troponin leak likely secondary to heart failure and renal failure #7 acute on chronic kidney failure From human resource internship perspective, medications were reviewed continue same home medications. Patient may be discharged home today. Discussed in detail importance of being compliant with both medications and nonpharmacological interventions for heart failure. Patient verbalized understanding of this. Patient will keep follow-up appointment as scheduled previously. CONTRACTS REPRESENTATIVE note has been reviewed, I agree with a documented findings and plan of care. Patient was seen and examined.
[2016-11-03 16:47] LABS: Glucose,Whole Blood 184 mg/dL (75-99)
--- NOTE | 2016-11-03 17:41 | P.PN ---
Subjective Date of service 11/03/2016. Progress note being dictated for Dr. Loredo Interval history:66 yo female presenting with worsening dyspnea since this morning. Patient was discharged yesterday after being treated for congestive heart failure exacerbation. Patient states she went home did not take any of her medications and this morning took only her Lasix. She was in the process of organizing her medications and did not have a chance to take them. She did not eat dinner last night. Denies cough. Denies chest pain. Denies lower extremity swelling. Patient states she slept on her back overnight. patient is coming up orthopnea and PND and patient is found to have worsening pulmonary edema on the chest x-ray patient was started on IV Lasix here. 11/03/2016. Receiving IV Ferrlicit. Continues on sodium bicarb. Breathing improved but still short of breath with exertion. O2 sat of 79% on room air after ambulation. Maintained on Lasix IV push, creatinine currently 3.5. Nephrology discussing replacement therapy, peritoneal dialysis. Denies chest pain, palpitations or increasing shortness of breath. Objective - Vital Signs Vital signs: Vital Signs Temp 97.8 F 11/03/16 15:33 Pulse 77 11/03/16 15:34 Resp 20 11/03/16 15:34 BP 160/65 11/03/16 15:33 Pulse Ox 95 11/03/16 16:16 Intake & Output 11/02/16 11/03/16 11/03/16 18:59 06:59 18:59 Intake Total 520 800 Output Total 100 350 Balance -100 520 450 Weight 90.718 kg 91.8 kg 91.8 kg Intake: Oral 520 800 Output: Urine 100 350 Other: Voiding Method Toilet Toilet # Voids 0 1 - Exam GENERAL: The patient is alert and oriented x3, not in any acute distress. Well developed, well nourished. HEENT: Pupils are round and equally reacting to light. EOMI. No scleral icterus. No conjunctival pallor. Normocephalic, atraumatic. No pharyngeal erythema. No thyromegaly. CARDIOVASCULAR: S1 and S2 present. No murmurs, rubs, or gallops. PULMONARY: Diminshed, no wheezing or crackles. ABDOMEN: Soft, nontender, nondistended, normoactive bowel sounds. No palpable organomegaly. MUSCULOSKELETAL: No joint swelling or deformity. EXTREMITIES: No cyanosis, clubbing;trace pedal edema. NEUROLOGICAL: Gross neurological examination did not reveal any focal deficits. SKIN: No rashes. - Labs CBC & Chem 7: 11/03/16 06:09 11/03/16 06:09 Labs: Abnormal Lab Results - Last 24 Hours (Table) 11/02/16 11/02/16 11/02/16 Range/Units 16:29 16:29 20:57 RBC (3.80-5.40) m/uL Hgb (11.4-16.0) gm/dL Hct (34.0-46.0) % Neutrophils # (1.3-7.7) k/uL Chloride (98-107) mmol/L Carbon Dioxide (22-30) mmol/L BUN (7-17) mg/dL Creatinine (0.52-1.04) mg/dL Glucose (74-99) mg/dL POC Glucose (mg/dL) 226 H (75-99) mg/dL Hemoglobin A1c 7.3 H (4.2-6.1) % CK-MB (CK-2) 2.7 H* (0.0-2.4) ng/mL Troponin I 0.053 H* (0.000-0.034) ng/mL 11/02/16 11/03/16 11/03/16 Range/Units 22:20 06:09 06:09 RBC 3.16 L (3.80-5.40) m/uL Hgb 9.1 L (11.4-16.0) gm/dL Hct 28.5 L (34.0-46.0) % Neutrophils # 8.3 H (1.3-7.7) k/uL Chloride 108 H (98-107) mmol/L Carbon Dioxide 17 L (22-30) mmol/L BUN 76 H (7-17) mg/dL Creatinine 3.50 H (0.52-1.04) mg/dL Glucose 141 H (74-99) mg/dL POC Glucose (mg/dL) (75-99) mg/dL Hemoglobin A1c (4.2-6.1) % CK-MB (CK-2) 2.9 H* (0.0-2.4) ng/mL Troponin I 0.059 H* (0.000-0.034) ng/mL 11/03/16 11/03/16 11/03/16 Range/Units 06:20 11:17 16:45 RBC (3.80-5.40) m/uL Hgb (11.4-16.0) gm/dL Hct (34.0-46.0) % Neutrophils # (1.3-7.7) k/uL Chloride (98-107) mmol/L Carbon Dioxide (22-30) mmol/L BUN (7-17) mg/dL Creatinine (0.52-1.04) mg/dL Glucose (74-99) mg/dL POC Glucose (mg/dL) 149 H 274 H 184 H (75-99) mg/dL Hemoglobin A1c (4.2-6.1) % CK-MB (CK-2) (0.0-2.4) ng/mL Troponin I (0.000-0.034) ng/mL Assessment and Plan Plan: 1. congestive heart failure chronic diastolic dysfunctionwith acute exacerbation. 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 #3 hypertension 4Hyperlipidemia 5 anemia of chronic disease #6 depression Plan: Continue on current medication regime ,monitoring and symptomatic treatment. Close monitoring of renal function, electrolytes with repeat labs ordered for a.m. Initially had hoped to discharge but patient still hypoxic on room air with ambulation. Continue on IV push Lasix. We'll continue to monitor overnight. Maintain supportive care. As mentioned above nephrology discussing potential replacement/ peritoneal dialysis. The impression and plan of care has been dictated as directed. : I performed a H&P examination of this patient and discussed the same with the dictator. I agree with the dictator's note. Any additional findings/opinions/ etc. will be noted.
[2016-11-03 20:54] LABS: Glucose,Whole Blood 196 mg/dL (75-99)
[2016-11-04 00:18] LABS: Glucose,Whole Blood 175 mg/dL (75-99)
[2016-11-04] MEDS ORDERED: FUROSEMIDE 10 MG/ML 4 ML VIAL IV STA (00:20)
[2016-11-04] MEDS ORDERED: FUROSEMIDE 10 MG/ML 10 ML VIAL IV STA (00:23)
[2016-11-04 06:10] LABS: Glucose,Whole Blood 201 mg/dL (75-99)
[2016-11-04] MEDS: INSULIN LISPRO (humaLOG) 300 UNIT/3 ML VIAL SQ SCH ×4 (06:49→20:53)
[2016-11-04] MEDS: CARVEDILOL 12.5 MG TAB PO SCH ×2 (06:49→17:20)
[2016-11-04 07:12] LABS: Calcium 8.6 mg/dL (8.4-10.2); Potassium 4.4 mmol/L (3.5-5.1)
[2016-11-04] MEDS: ISOSORBIDE MONONITRATE ER 60 MG TAB.ER.24H PO SCH (08:11)
[2016-11-04] MEDS: ASPIRIN 325 MG TAB PO SCH (08:11)
[2016-11-04] MEDS: hydrALAZINE HCL 25 MG TAB PO SCH ×3 (08:11→20:48)
[2016-11-04] MEDS: ATORVASTATIN 80 MG TAB PO SCH (08:11)
[2016-11-04] MEDS: ALLOPURINOL 100 MG TAB PO SCH (08:11)
[2016-11-04] MEDS: SODIUM BICARBONATE TAB 650 MG TAB PO SCH ×3 (08:11→20:49)
[2016-11-04] MEDS: amLODIPine 10 MG TAB PO SCH (08:11)
[2016-11-04] MEDS: ESCITALOPRAM 20 MG TAB PO SCH (08:11)
[2016-11-04] MEDS: FUROSEMIDE 10 MG/ML 4 ML VIAL IV SCH (08:15)
--- NOTE | 2016-11-04 08:21 | P.PN ---
Subjective Patient is seen in follow-up for acute kidney injury on chronic kidney disease. Patient has chronic kidney disease stage IV with baseline creatinine near 2.5 secondary to nephrosclerosis and diabetic kidney disease. Her creatinine is up at 3.84 today. Patient presented to the hospital with dyspnea. She does have history of diastolic CHF. Chest x-ray was suggestive of mild CHF. Patient is maintained on Lasix 40 mg IV twice daily and received an additional dose of Lasix 80 mg last night due to dyspnea. She is currently resting in bed. Denies any lower extremity edema. Admits to good urine output. No vomiting or diarrhea. Vital signs are stable. General: The patient appeared well nourished and normally developed. HEENT: Head exam is unremarkable. Neck is without jugular venous distension. LUNGS: Lungs are clear to auscultation and percussion. Breath sounds decreased. HEART: Rate and Rhythm are regular. First and second heart sounds normal. No murmurs, rubs or gallops. ABDOMEN: Abdominal exam reveals normal bowel sounds. Non-tender and non- distended. No evidence of peritonitis. EXTREMITITES: No clubbing, cyanosis, or edema. Objective - Vital Signs Vital signs: Vital Signs Temp 97.7 F 11/04/16 08:00 Pulse 71 11/04/16 08:00 Resp 20 11/04/16 08:00 BP 177/71 11/04/16 08:00 Pulse Ox 95 11/04/16 08:18 Intake & Output 11/03/16 11/04/16 11/04/16 18:59 06:59 18:59 Intake Total 1160 630 Output Total 350 Balance 810 630 Weight 91.8 kg 92.2 kg Intake: Oral 1160 630 Output: Urine 350 Other: Voiding Method Toilet Toilet # Voids 1 - Labs CBC & Chem 7: 11/03/16 06:09 11/04/16 06:44 Labs: Abnormal Lab Results - Last 24 Hours (Table) 11/03/16 11/03/16 11/03/16 Range/Units 11:17 16:45 20:52 Carbon Dioxide (22-30) mmol/L BUN (7-17) mg/dL Creatinine (0.52-1.04) mg/dL Glucose (74-99) mg/dL POC Glucose (mg/dL) 274 H 184 H 196 H (75-99) mg/dL 07/21/17 07/21/17 07/21/17 Range/Units 00:06 06:09 06:44 Carbon Dioxide 18 L (22-30) mmol/L BUN 88 H* (7-17) mg/dL Creatinine 3.84 H (0.52-1.04) mg/dL Glucose 175 H (74-99) mg/dL POC Glucose (mg/dL) 175 H 201 H (75-99) mg/dL Assessment and Plan Plan: Assessment: #1. Nonoliguric acute kidney injury mostly prerenal secondary to diuresis. Creatinine up to 3.84 today. #2. Chronic kidney disease stage IV secondary to diabetic kidney disease and nephrosclerosis with baseline creatinine near 2.5. #3. Diastolic CHF. #4. Anemia of chronic kidney disease. Iron deficiency also noted. #5. Diabetes mellitus. #6. Metabolic acidosis secondary to chronic kidney disease. Plan: I would decrease Lasix down to 40 mg IV once daily. Ferrlicit 125 mg IV daily for 3 days. Second dose today. Maintain sodium bicarbonate supplementation. Avoid nephrotoxic agents and hypotensive episodes. Repeat electrolytes in the morning. Patient is not too keen on doing replacement therapy but has been considering peritoneal dialysis. Repeat chest x-ray today.
[2016-11-04] MEDS ORDERED: FUROSEMIDE 40 MG TAB PO SCH (09:00)
[2016-11-04] MEDS: SODIUM FERRIC GLUCONAT-SUCROSE 125 MG in SODIUM CHLORIDE 0.9% 100 ML IVPB SCH (10:45)
[2016-11-04 11:54] LABS: Glucose,Whole Blood 199 mg/dL (75-99)
--- NOTE | 2016-11-04 13:32 | XR ---
EXAMINATION TYPE: XR chest 2V DATE OF EXAM: 11/04/2016 COMPARISON: 11/02/2016 TECHNIQUE: PA and lateral views submitted. HISTORY: Shortness of breath FINDINGS: Heart is prominent there is a diffuse interstitial pattern with no pneumothorax. Tiny bilateral effus ion. Underlying COPD or interstitial lung disease in the differential diagnosis. Degenerative change of the spine. IMPRESSION: 1. Stable findings correlate for interstitial venous congestion versus interstitial pneumonitis super imposed on a background of chronic lung disease.
--- NOTE | 2016-11-04 14:13 | P.PN ---
Subjective This is a pleasant 66-year-old female patient who was recently discharged home from the hospital. Apparently she had arrived home health company and did not take the time to organize and take her medications before going to bed that night. She will continue the morning and was feeling short of breath and presented back to the emergency department. She is complaining of orthopnea and PND and was found to have worsening pulmonary edema and started on IV Lasix. Her BNP was 8000. Incidentally her troponin level were mildly elevated at 0.034, 0.053 and 0.059. BUN and creatinine are elevated at 76 and 3.5, nephrology is on consult patient has a known history of stage IV chronic kidney disease. On examination, patient is resting comfortably with her head of bed flat. She denies further complaints of shortness of breath or orthopnea, PND this morning however did receive an additional 80 mg IV lasix through the night for increased dyspnea. Objective - Vital Signs Vital signs: Vital Signs Temp 96.5 F L 11/04/16 11:36 Pulse 68 11/04/16 11:36 Resp 18 11/04/16 11:36 BP 161/69 11/04/16 11:36 Pulse Ox 94 L 11/04/16 11:36 Intake & Output 11/03/16 11/04/16 11/04/16 18:59 06:59 18:59 Intake Total 1160 630 100 Output Total 350 Balance 810 630 100 Weight 91.8 kg 92.2 kg Intake: Oral 1160 630 100 Output: Urine 350 Other: Voiding Method Toilet Toilet Toilet # Voids 1 - Exam PHYSICAL EXAMINATION: HEENT: Head is atraumatic, normocephalic. Pupils equal, round. Neck is supple. There is no elevated jugular venous pressure. HEART EXAMINATION: Heart sounds regular, S1 and S2 normal. No murmur or gallop heard. CHEST EXAMINATION: Lungs reveal diminished air entry bilaterally. No chest wall tenderness is noted on palpation or with deep breathing. ABDOMEN: Soft, nontender. Bowel sounds are heard. No organomegaly noted. EXTREMITIES: 2+ peripheral pulses with evidence of trace peripheral edema and no calf tenderness noted. NEUROLOGIC patient is awake, alert and oriented x3. - Labs CBC & Chem 7: 11/03/16 06:09 11/04/16 06:44 Labs: Abnormal Lab Results - Last 24 Hours (Table) 11/03/16 11/03/16 11/04/16 Range/Units 16:45 20:52 00:06 Carbon Dioxide (22-30) mmol/L BUN (7-17) mg/dL Creatinine (0.52-1.04) mg/dL Glucose (74-99) mg/dL POC Glucose (mg/dL) 184 H 196 H 175 H (75-99) mg/dL 11/04/16 11/04/16 11/04/16 Range/Units 06:09 06:44 11:50 Carbon Dioxide 18 L (22-30) mmol/L BUN 88 H* (7-17) mg/dL Creatinine 3.84 H (0.52-1.04) mg/dL Glucose 175 H (74-99) mg/dL POC Glucose (mg/dL) 201 H 199 H (75-99) mg/dL Assessment and Plan Plan: Assessment and plan #1 acute on chronic diastolic congestive heart failure #2 noncompliance with medications #3 hypertension #4 hyperlipidemia #5 anemia of chronic disease #6 mild troponin leak likely secondary to heart failure and renal failure #7 acute on chronic kidney failure From design inserter perspective, medications were reviewed continue same home medications and lasix 40mg IV daily as directed by Nephrology. Discussed in detail importance of being compliant with both medications and nonpharmacological interventions for heart failure. Patient verbalized understanding of this. Patient will follow-up with Dr. YO Mcclure as an outpatient. The above dictated assessment and findings were discussed with signing physician. The impression and plan of care have been directed as dictated. Naya Tilley, Nurse Practitioner, acting as scribe for signing physician.
[2016-11-04 16:57] LABS: Glucose,Whole Blood 169 mg/dL (75-99)
--- NOTE | 2016-11-04 17:33 | P.PN ---
Subjective Date of service 11/03/2016. Progress note being dictated for Dr. Loredo Interval history:66 yo female presenting with worsening dyspnea since this morning. Patient was discharged yesterday after being treated for congestive heart failure exacerbation. Patient states she went home did not take any of her medications and this morning took only her Lasix. She was in the process of organizing her medications and did not have a chance to take them. She did not eat dinner last night. Denies cough. Denies chest pain. Denies lower extremity swelling. Patient states she slept on her back overnight. patient is coming up orthopnea and PND and patient is found to have worsening pulmonary edema on the chest x-ray patient was started on IV Lasix here. 11/03/2016. Receiving IV Ferrlicit. Continues on sodium bicarb. Breathing improved but still short of breath with exertion. O2 sat of 79% on room air after ambulation. Maintained on Lasix IV push, creatinine currently 3.5. Nephrology discussing replacement therapy, peritoneal dialysis. Denies chest pain, palpitations or increasing shortness of breath. 11/04/2016 during the night patient was awakened by increased shortness of breath, received additional Lasix 80 IV push. Worsening renal function, BUN 88 , creatinine 3.84. Lasix dose decreased per nephrology .Breathing improved. F/ U chest x-ray reporting interstitial venous congestion versus interstitial pneumonitis, underlying COPD or interstitial lung disease. Objective - Vital Signs Vital signs: Vital Signs Temp 97.0 F L 11/04/16 16:00 Pulse 74 11/04/16 16:00 Resp 16 11/04/16 16:00 BP 170/74 11/04/16 16:00 Pulse Ox 93 L 11/04/16 16:00 Intake & Output 11/03/16 11/04/16 11/04/16 18:59 06:59 18:59 Intake Total 1160 630 360 Output Total 350 600 Balance 810 630 -240 Weight 91.8 kg 92.2 kg Intake: Intake, IV Titration 100 Amount Sodium Ferric Gluconat- 100 Sucrose 125 mg In Sodium Chloride 0.9% 100 ml @ 100 mls/hr IVPB DAILY BC Rx#:[id number] Oral 1160 630 260 Output: Urine 350 600 Other: Voiding Method Toilet Toilet Toilet # Voids 1 2 - Exam GENERAL: Sitting up in bed, alert and oriented x3, no acute distress. Well developed, well nourished. HEENT: Pupils are round and equally reacting to light. EOMI. No scleral icterus. No conjunctival pallor. Normocephalic, atraumatic. No pharyngeal erythema. No thyromegaly. CARDIOVASCULAR: S1 and S2 present. No murmurs, rubs, or gallops. PULMONARY: Diminshed, no wheezing or crackles. ABDOMEN: Soft, nontender, nondistended, normoactive bowel sounds. No palpable organomegaly. MUSCULOSKELETAL: No joint swelling or deformity. EXTREMITIES: No cyanosis, clubbing;trace pedal edema. NEUROLOGICAL: Gross neurological examination did not reveal any focal deficits. SKIN: No rashes. - Labs CBC & Chem 7: 11/03/16 06:09 11/04/16 06:44 Labs: Abnormal Lab Results - Last 24 Hours (Table) 11/03/16 11/04/16 11/04/16 Range/Units 20:52 00:06 06:09 Carbon Dioxide (22-30) mmol/L BUN (7-17) mg/dL Creatinine (0.52-1.04) mg/dL Glucose (74-99) mg/dL POC Glucose (mg/dL) 196 H 175 H 201 H (75-99) mg/dL 11/04/16 11/04/16 11/04/16 Range/Units 06:44 11:50 16:56 Carbon Dioxide 18 L (22-30) mmol/L BUN 88 H* (7-17) mg/dL Creatinine 3.84 H (0.52-1.04) mg/dL Glucose 175 H (74-99) mg/dL POC Glucose (mg/dL) 199 H 169 H (75-99) mg/dL Assessment and Plan Plan: 1. congestive heart failure chronic diastolic dysfunctionwith acute exacerbation. 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 #3 hypertension 4Hyperlipidemia 5 anemia of chronic disease, iron deficient #6 depression #7 acute hypoxic respiratory failure secondary to interstitial venous congestion , possibly interstitial pneumonitis,;underlying COPD or interstitial lung disease per chest x-ray. Plan: Continue on current medication regime ,monitoring and symptomatic treatment. Pulmonary consult initiated. Close monitoring of renal function, electrolytes with repeat labs ordered for a.m. diuretics as per nephrology. Maintain supportive care. As mentioned above nephrology discussing potential replacement/ peritoneal dialysis. The impression and plan of care has been dictated as directed. : I performed a H&P examination of this patient and discussed the same with the dictator. I agree with the dictator's note. Any additional findings/opinions/ etc. will be noted.
[2016-11-04 20:54] LABS: Glucose,Whole Blood 179 mg/dL (75-99)
[2016-11-05 05:57] LABS: Glucose,Whole Blood 203 mg/dL (75-99)
[2016-11-05] MEDS: INSULIN LISPRO (humaLOG) 300 UNIT/3 ML VIAL SQ SCH ×4 (06:29→21:37)
[2016-11-05] MEDS: CARVEDILOL 12.5 MG TAB PO SCH ×2 (06:29→17:32)
[2016-11-05 06:34] LABS: Calcium 8.4 mg/dL (8.4-10.2); Potassium 4.3 mmol/L (3.5-5.1)
[2016-11-05] MEDS: ALLOPURINOL 100 MG TAB PO SCH (08:30)
[2016-11-05] MEDS: ATORVASTATIN 80 MG TAB PO SCH (08:30)
[2016-11-05] MEDS: ISOSORBIDE MONONITRATE ER 60 MG TAB.ER.24H PO SCH (08:30)
[2016-11-05] MEDS: amLODIPine 10 MG TAB PO SCH (08:30)
[2016-11-05] MEDS: hydrALAZINE HCL 25 MG TAB PO SCH ×3 (08:30→21:38)
[2016-11-05] MEDS: ASPIRIN 325 MG TAB PO SCH (08:30)
[2016-11-05] MEDS: SODIUM BICARBONATE TAB 650 MG TAB PO SCH ×3 (08:30→21:39)
[2016-11-05] MEDS: ESCITALOPRAM 20 MG TAB PO SCH (08:31)
[2016-11-05] MEDS: FUROSEMIDE 10 MG/ML 4 ML VIAL IV SCH (08:31)
[2016-11-05] MEDS: SENNOSIDES-DOCUSATE SODIUM 1 EACH TAB PO PRN (08:45)
[2016-11-05] MEDS: FUROSEMIDE 10 MG/ML 10 ML VIAL IV SCH ×2 (08:45→21:37)
--- NOTE | 2016-11-05 08:57 | PN ---
The patient is seen for follow up for chronic kidney disease with an element of acute kidney injury and fluid overload. She was admitted to the hospital with fluid overload. She had been maintained on diuretics and currently she is on 40 mg IV daily. Patient states she is feeling better. Her weight is, however, noted to be higher than on admission. Chest x-ray from yesterday continues to show some interstitial venous congestion. Patient has been voiding. Her urine output is not accurately charted. On examination today blood pressure is 182/74, heart rate 91 per minute. Patient is afebrile. Examination of the heart: S1, S2. Examination of lungs: Bilateral breath sounds are heard, but basal crackles heard. Abdomen is soft, nontender, distended, obese. Examination of lower extremities showed no significant edema. FILM ARCHIVIST exam is grossly intact. The patient is moving all four extremities. Labs showed sodium 137, potassium 4.3, BUN 91, serum creatinine 3.83. ASSESSMENT: 1. Acute kidney injury, most likely cardiorenal. The patient remains volume overloaded with evidence of increased pulmonary vascular congestion mainly in the lungs. She does not carry fluid in her lower extremities. We may need to consider renal replacement therapy over the next few days if her volume status does not improve. 2. Hypertension with history of severe orthostatic hypotension. Will check orthostatics and treat accordingly. We do not want the systolic blood pressure to be more than 170 mmHg lying and not less than 125 mmHg standing. 3. Iron deficiency status post IV iron. 4. Volume overload. Will increase Lasix to 60 mg IV b.i.d. 5. Metabolic acidosis maintained on sodium bicarb. PLAN: Increase Lasix. Consider renal replacement therapy if volume status does not improve. Repeat labs in the a.m. MTDD
[2016-11-05] MEDS: SODIUM FERRIC GLUCONAT-SUCROSE 125 MG in SODIUM CHLORIDE 0.9% 100 ML IVPB SCH (09:16)
--- NOTE | 2016-11-05 11:48 | P.CNPUL ---
History of Present Illness Consult date: 11/05/16 Reason for consult: dyspnea History of present illness: 66-year-old female patient who is having difficulty in breathing. Head the patient has been having acute hypoxic respiratory failure and currently she is on oxygen at 4 L/m nasal cannula. Her chest x-ray findings is typical of CHF. She has an extensive cardiac history. Several years ago she was diagnosed having systolic dysfunction with an ejection fraction of 20-25% and hypertensive heart disease. She is also known to have coronary artery disease and she has undergone previous coronary artery stenting. She has had history of breast cancer with bilateral mastectomy. Remote history of smoking. No chronic lung disease, asthma or COPD. No history of interstitial lung disease. She was hospitalized on 10/30/2016 for increased shortness of breath. She was diagnosed having acute CHF with diastolic dysfunction. The repeat echocardiogram showed improvement in the LV function with an ejection fraction of 50-55% along with moderately severe concentric left ventricular hypertrophy suggestive of hypertensive heart disease and diastolic dysfunction. Doppler of the lower extremities was negative. VQ scan was of a low probability. The patient was diuresed. The patient was discharged home. Note that she is also a component of chronic renal failure and she follows up with nephrology on a regular basis. 12 hours following her discharge the patient comes back with worsening shortness of breath. Chest x-ray still showing CHF findings and the patient is also found to be hypoxemic. She is obese. She is snoring. She has typical features of obstructive sleep apnea although this has not been officially diagnosed. No major edema over the legs. For the past few days the patient was being diuresis with IV Lasix and she is still having trouble breathing. I reviewed a series of chest x-ray and the findings are consistent with cardiomegaly and pulmonary vessel congestion and possibly small bilateral pleural effusion. No aspiration. No pneumonias. No fever. No chills. No night sweats. Review of Systems Constitutional: Reports daytime sleepiness, Reports fatigue, Reports lethargy, Reports malaise Eyes: denies as per HPI, denies blurred vision, denies bulging eye, denies decreased vision Ears: deny: decreased hearing, ear discharge, earache Ears, nose, mouth and throat: Denies headache, Denies sore throat Cardiovascular: Reports decreased exercise tolerance, Reports dyspnea on exertion, Reports palpitations, Reports shortness of breath Respiratory: Reports dyspnea, Reports snoring Gastrointestinal: Denies abdominal pain, Denies diarrhea, Denies nausea, Denies vomiting Genitourinary: Denies dysuria, Denies hematuria Musculoskeletal: Denies myalgias Musculoskeletal: absent: ankle pain, ankle stiffness, ankle swelling Integumentary: Denies pruritus, Denies rash Neurological: Denies numbness, Denies weakness Psychiatric: Denies anxiety, Denies depression Endocrine: Denies fatigue, Denies weight change Past Medical History Past Medical History: Cancer, Heart Failure, CVA/TIA, Diabetes Mellitus, Hyperlipidemia, Hypertension, Myocardial Infarction ([place]), Renal Disease, Seizure Disorder Additional Past Medical History / Comment(s): Pt recently admitted 10/30/16 hypoxic respiratory failure/chf. Other hx: Breast cancer with bilateral mastectomy and chemo, diet controlled diabetes, diabetic bilateral retinopathy, diabetic peripheral neuropathy, CKD stage IV, seizure in 2009, CVA in 2015, hyperlipidemia, hypertension, coronary artery disease with previous insertion of coronary stent and previous myocardial infarction, obesity Last Myocardial Infarction Date:: 2010 History of Any Multi-Drug Resistant Organisms: None Reported Past Surgical History: Breast Surgery, Section, Heart Catheterization With Stent, Hysterectomy Additional Past Surgical History / Comment(s): masectomy-bilateral Past Anesthesia/Blood Transfusion Reactions: Previous Problems w/ Anesthesia Additional Past Anesthesia/Blood Transfusion Reaction / Comment(s): "hard time waking up from anestheia". Pt has received blood in past without reaction. Date of Last Stent Placement:: 2010 Smoking Status: Never smoker - Past Family History Father Family Medical History: Cancer, Coronary Artery Disease (CAD), Diabetes Mellitus Additional Family Medical History / Comment(s): Father of heart disease at age 63 yrs. Mother Family Medical History: Cancer Additional Family Medical History / Comment(s): Mother had colon cancer. Brother(s) Family Medical History: Cancer, Diabetes Mellitus Sister(s) Family Medical History: Cancer Medications and Allergies Home Medications Medication Instructions Recorded Confirmed Type Atorvastatin [Lipitor] 80 mg PO DAILY 12/29/13 11/02/16 History Allopurinol [Zyloprim] 200 mg PO DAILY 10/30/16 11/02/16 History Biotin 5 mg PO DAILY 10/30/16 11/02/16 History Calcitriol [Rocaltrol] 0.5 mcg PO MOWEFR 10/30/16 11/02/16 History Escitalopram [Lexapro] 20 mg PO DAILY 10/30/16 11/02/16 History Hydrocortisone Cream 1 applic TOPICAL BID PRN 10/30/16 11/02/16 History [Hydrocortisone 2.5% Cream] Losartan Potassium [Cozaar] 50 mg PO DAILY 10/30/16 11/02/16 History Allergies Allergy/AdvReac Type Severity Reaction Status Date / Time morphine Allergy Unknown Verified 11/02/16 10:38 Physical Exam Vitals: Vital Signs Temp Pulse Resp BP BP BP BP 11/05/16 11:22 166/71 153/68 171/73 11/05/16 11:21 97.3 F L 74 18 166/71 11/05/16 08:00 97.1 F L 73 18 173/73 11/05/16 06:34 182/74 11/05/16 04:00 99.5 F 91 17 195/81 11/05/16 00:00 80 18 187/80 11/04/16 20:00 99.1 F 76 18 181/79 11/04/16 16:00 97.0 F L 74 16 170/74 11/04/16 15:43 68 18 Pulse Ox 11/05/16 11:22 11/05/16 11:21 95 11/05/16 08:00 94 L 11/05/16 06:34 11/05/16 04:00 91 L 11/05/16 00:00 91 L 11/04/16 20:00 91 L 11/04/16 16:00 93 L 11/04/16 15:43 Intake and Output 11/04/16 11/05/16 11/05/16 22:59 06:59 14:59 Intake Total 520 480 180 Balance 520 480 180 Intake: Oral 520 480 180 Other: Voiding Method Toilet Toilet Toilet # Voids 1 Weight 92.3 kg Obese, comfortable likely distress.Head exam was generally normal. There was no scleral icterus or corneal arcus. Mucous membranes were moist. Neck is short and supple and there is significant crowding of the posterior oropharynx. There is no goiter or neck masses. Lungs sounds are diminished bilaterally especially in lung bases. Few crackles can be appreciated in the lung bases bilaterally. No wheezes. No rhonchi.Cardiac exam revealed the PMI to be normally situated and sized. The rhythm was regular and no extrasystoles were noted during several minutes of auscultation. The first and second heart sounds were normal and physiologic splitting of the second heart sound was noted. There were no murmurs, rubs, clicks, or gallops. There is accentuation of the second heart sound. No right ventricular heave or thrill. A faint grade 2/6 systolic ejection murmur can be also appreciated over the anterior chest. Abdomen is obese soft nontender. Organs cannot be accurately palpated due to obesity. No direct tenderness. No rebound tenderness. No guarding.Examination of the extremities revealed easily palpable radial, femoral and pedal pulses. There was no cyanosis, clubbing or edema. Results - Laboratory Findings CBC and BMP: 11/03/16 06:09 11/05/16 05:37 PT/INR, D-dimer PT 9.8 sec (9.0-12.0) 11/02/16 10:35 INR 1.0 (<1.2) 11/02/16 10:35 Abnormal lab findings: Abnormal Labs 11/02/16 11/02/16 11/02/16 10:35 10:35 10:35 WBC 11.5 H RBC 3.40 L Hgb 9.8 L Hct 30.4 L Neutrophils # 9.7 H Lymphocytes # 0.8 L Chloride 108 H Carbon Dioxide 16 L BUN 68 H Creatinine 3.49 H Glucose 165 H POC Glucose (mg/dL) Hemoglobin A1c CK-MB (CK-2) 3.1 H* Troponin I 11/02/16 11/02/16 11/02/16 16:29 16:29 17:11 WBC RBC Hgb Hct Neutrophils # Lymphocytes # Chloride Carbon Dioxide BUN Creatinine Glucose POC Glucose (mg/dL) 140 H Hemoglobin A1c 7.3 H CK-MB (CK-2) 2.7 H* Troponin I 0.053 H* 11/02/16 11/02/16 11/03/16 20:57 22:20 06:09 WBC RBC 3.16 L Hgb 9.1 L Hct 28.5 L Neutrophils # 8.3 H Lymphocytes # Chloride Carbon Dioxide BUN Creatinine Glucose POC Glucose (mg/dL) 226 H Hemoglobin A1c CK-MB (CK-2) 2.9 H* Troponin I 0.059 H* 11/03/16 11/03/16 11/03/16 06:09 06:20 11:17 WBC RBC Hgb Hct Neutrophils # Lymphocytes # Chloride 108 H Carbon Dioxide 17 L BUN 76 H Creatinine 3.50 H Glucose 141 H POC Glucose (mg/dL) 149 H 274 H Hemoglobin A1c CK-MB (CK-2) Troponin I 11/03/16 11/03/16 11/04/16 16:45 20:52 00:06 WBC RBC Hgb Hct Neutrophils # Lymphocytes # Chloride Carbon Dioxide BUN Creatinine Glucose POC Glucose (mg/dL) 184 H 196 H 175 H Hemoglobin A1c CK-MB (CK-2) Troponin I 11/04/16 11/04/16 11/04/16 06:09 06:44 11:50 WBC RBC Hgb Hct Neutrophils # Lymphocytes # Chloride Carbon Dioxide 18 L BUN 88 H* Creatinine 3.84 H Glucose 175 H POC Glucose (mg/dL) 201 H 199 H Hemoglobin A1c CK-MB (CK-2) Troponin I 11/04/16 11/04/16 11/05/16 16:56 20:49 05:37 WBC RBC Hgb Hct Neutrophils # Lymphocytes # Chloride Carbon Dioxide 21 L BUN 91 H* Creatinine 3.83 H Glucose 184 H POC Glucose (mg/dL) 169 H 179 H Hemoglobin A1c CK-MB (CK-2) Troponin I 11/05/16 05:54 WBC RBC Hgb Hct Neutrophils # Lymphocytes # Chloride Carbon Dioxide BUN Creatinine Glucose POC Glucose (mg/dL) 203 H Hemoglobin A1c CK-MB (CK-2) Troponin I - Diagnostic Findings Chest x-ray: image reviewed Assessment and Plan Plan: Assessment 1 acute hypoxic respiratory failure with development of bilateral interstitial markings on chest x-ray and based on her history of CHF and hypertensive heart disease and diastolic dysfunction slightly that her shortness of breath is related to interstitial edema/CHF. Based on the recurrent nature of her shortness of breath and hypoxic respiratory failure, further investigation with a high-resolution CAT scan of the chest will be needed to make sure there is no alternative pathology contributing to her dyspnea. 2 obesity with clinical obstructive sleep apnea, diagnoses not been established yet. 3 coronary artery disease with previous coronary intervention and stenting 4 CHF with previous echocardiogram indicating a low ejection fraction of 20-25% yet the most recent echocardiogram showed improvement in the LV function with a component of diastolic dysfunction/hypertensive heart disease 4 diabetes mellitus 5 previous history of CVA 6 hypertension 7 hyperlipidemia 8 chronic renal failure 9 breast cancer with previous bilateral mastectomy and implants 10 anxiety. 11 osteoarthritis Plan Cardiac follow-up regarding the CHF management. Nephrology follow-up regarding the renal failure. High resolution CAT scan of the chest to make sure there is no alternative pathology contributing to her dyspnea and respiratory failure. Sleep study on outpatient basis. Continue diuretics for now. We'll continue to follow.
--- NOTE | 2016-11-05 12:00 | CT ---
EXAMINATION TYPE: CT chest wo con DATE OF EXAM: 11/05/2016 COMPARISON: 04/16/2011 HISTORY: SOB, ILD CT DLP: 1135.4 mGycm High-resolution noncontrast CT of the chest was performed with the patient in the prone and supine po sitions. Lung and mediastinal window settings are submitted. Noted are bilateral pleural effusions right greater than left measuring 5.4 cm AP dimension on the ri ght and 2.3 cm AP dimension on the left. There is evidence of pulmonary venous congestion as well as scattered groundglass and interstitial infiltrates. There is also cardiomegaly. The findings are felt to reflect congestive failure with the interstitial and early alveolar edema. No evidence for fibros is. I do not see evidence for bronchiectasis. Small pericardial effusion noted measuring 7.6 mm. No e vidence of pulmonary nodule or mass at this time. Bilateral breast implants are intact. Thoracic aorta is of normal caliber. Upper abdomen and grossly unremarkable. IMPRESSION: 1. Findings felt to reflect congestive failure as noted above.
[2016-11-05 12:02] LABS: Glucose,Whole Blood 225 mg/dL (75-99)
--- NOTE | 2016-11-05 12:57 | P.PN ---
Subjective 66-year-old female who was recently discharged home from the hospital. She has a history of prior TIA, diabetes, hyperlipidemia, hypertension, renal disease, seizure disorder, prior congestive heart failure, chronic kidney disease. She presented to the hospital with symptoms of progressively worsening shortness of breath. Patient had just recently been discharged home from the hospital states that she had received some diuresis in the emergency room and repeat presented to the hospital within 24 hours again quite short of breath. Her BNP level was 8000 on admission. Troponins were also elevated, consistent with her chronic renal failure. Patient was seen and examined this morning, continues to feel short of breath overall. She is scheduled to undergo a CAT scan of the chest today as ordered by pulmonary to rule out underlying pulmonary fibrosis. 10 used to be on IV Lasix at this time. Objective - Vital Signs Vital signs: Vital Signs Temp 97.3 F L 11/05/16 11:21 Pulse 74 11/05/16 11:21 Resp 18 11/05/16 11:21 BP 171/73 11/05/16 11:22 Pulse Ox 95 11/05/16 11:21 Intake & Output 11/04/16 11/05/16 11/05/16 18:59 06:59 18:59 Intake Total 460 900 180 Output Total 600 Balance -140 900 180 Weight 92.3 kg Intake: Intake, IV Titration 100 Amount Sodium Ferric Gluconat- 100 Sucrose 125 mg In Sodium Chloride 0.9% 100 ml @ 100 mls/hr IVPB DAILY [facility] Rx#:[id number] Oral 360 900 180 Output: Urine 600 Other: Voiding Method Toilet Toilet Toilet # Voids 2 1 - Exam PHYSICAL EXAMINATION: HEENT: Head is atraumatic, normocephalic. Pupils equal, round. Neck is supple. There is no elevated jugular venous pressure. HEART EXAMINATION: Heart sounds regular, S1 and S2 normal. No murmur or gallop heard. CHEST EXAMINATION: Lungs reveal diminished air entry bilaterally coarse rales bilaterally. No chest wall tenderness is noted on palpation or with deep breathing. ABDOMEN: Soft, nontender. Bowel sounds are heard. No organomegaly noted. EXTREMITIES: 2+ peripheral pulses with evidence of trace peripheral edema and no calf tenderness noted. NEUROLOGIC patient is awake, alert and oriented x3. - Labs CBC & Chem 7: 11/03/16 06:09 11/05/16 05:37 Labs: Abnormal Lab Results - Last 24 Hours (Table) 11/04/16 11/04/16 11/05/16 Range/Units 16:56 20:49 05:37 Carbon Dioxide 21 L (22-30) mmol/L BUN 91 H* (7-17) mg/dL Creatinine 3.83 H (0.52-1.04) mg/dL Glucose 184 H (74-99) mg/dL POC Glucose (mg/dL) 169 H 179 H (75-99) mg/dL 11/05/16 11/05/16 Range/Units 05:54 11:59 Carbon Dioxide (22-30) mmol/L BUN (7-17) mg/dL Creatinine (0.52-1.04) mg/dL Glucose (74-99) mg/dL POC Glucose (mg/dL) 203 H 225 H (75-99) mg/dL Assessment and Plan Plan: Assessment and plan #1 acute on chronic diastolic congestive heart failure #2 noncompliance with medications #3 hypertension #4 hyperlipidemia #5 anemia of chronic disease #6 mild troponin leak likely secondary to heart failure and renal failure #7 acute on chronic kidney failure #8 coronary artery disease with prior stent placement #9 prior CVA #10 breast cancer with prior bilateral mastectomy and implants Plan We will recommend to continue current dose of IV Lasix. High-resolution CAT scan has also been requested to rule out any alternate pathology contributing to her dyspnea. DNP note has been reviewed, I agree with a documented findings and plan of care. Patient was seen and examined.
--- NOTE | 2016-11-05 13:53 | P.PN ---
Subjective Interval history:66 yo female presenting with worsening dyspnea since this morning. Patient was discharged yesterday after being treated for congestive heart failure exacerbation. Patient states she went home did not take any of her medications and this morning took only her Lasix. She was in the process of organizing her medications and did not have a chance to take them. She did not eat dinner last night. Denies cough. Denies chest pain. Denies lower extremity swelling. Patient states she slept on her back overnight. patient is coming up orthopnea and PND and patient is found to have worsening pulmonary edema on the chest x-ray patient was started on IV Lasix here. 11/03/2016. Receiving IV Ferrlicit. Continues on sodium bicarb. Breathing improved but still short of breath with exertion. O2 sat of 79% on room air after ambulation. Maintained on Lasix IV push, creatinine currently 3.5. Nephrology discussing replacement therapy, peritoneal dialysis. Denies chest pain, palpitations or increasing shortness of breath. 11/04/2016 during the night patient was awakened by increased shortness of breath, received additional Lasix 80 IV push. Worsening renal function, BUN 88 , creatinine 3.84. Lasix dose decreased per nephrology .Breathing improved. F/ U chest x-ray reporting interstitial venous congestion versus interstitial pneumonitis, underlying COPD or interstitial lung disease. 11/05/2016 Patient continues to have significant pulmonary edema, IV Lasix dose was increased will continue to monitor. The of the chest is consistent with pulmonary edema. Objective - Vital Signs Vital signs: Vital Signs Temp 97.3 F L 11/05/16 11:21 Pulse 74 11/05/16 11:21 Resp 18 11/05/16 11:21 BP 171/73 11/05/16 11:22 Pulse Ox 95 11/05/16 11:21 Intake & Output 11/04/16 11/05/16 11/05/16 18:59 06:59 18:59 Intake Total 460 900 180 Output Total 600 Balance -140 900 180 Weight 92.3 kg Intake: Intake, IV Titration 100 Amount Sodium Ferric Gluconat- 100 Sucrose 125 mg In Sodium Chloride 0.9% 100 ml @ 100 mls/hr IVPB DAILY [facility] Rx#:[id number] Oral 360 900 180 Output: Urine 600 Other: Voiding Method Toilet Toilet Toilet # Voids 2 1 - Exam GENERAL: Sitting up in bed, alert and oriented x3, no acute distress. Well developed, well nourished. HEENT: Pupils are round and equally reacting to light. EOMI. No scleral icterus. No conjunctival pallor. Normocephalic, atraumatic. No pharyngeal erythema. No thyromegaly. CARDIOVASCULAR: S1 and S2 present. No murmurs, rubs, or gallops. PULMONARY: Diminshed, no wheezing or crackles. ABDOMEN: Soft, nontender, nondistended, normoactive bowel sounds. No palpable organomegaly. MUSCULOSKELETAL: No joint swelling or deformity. EXTREMITIES: No cyanosis, clubbing;trace pedal edema. NEUROLOGICAL: Gross neurological examination did not reveal any focal deficits. SKIN: No rashes. - Labs CBC & Chem 7: 11/03/16 06:09 11/05/16 05:37 Labs: Abnormal Lab Results - Last 24 Hours (Table) 11/04/16 11/04/16 11/05/16 Range/Units 16:56 20:49 05:37 Carbon Dioxide 21 L (22-30) mmol/L BUN 91 H* (7-17) mg/dL Creatinine 3.83 H (0.52-1.04) mg/dL Glucose 184 H (74-99) mg/dL POC Glucose (mg/dL) 169 H 179 H (75-99) mg/dL 11/05/16 11/05/16 Range/Units 05:54 11:59 Carbon Dioxide (22-30) mmol/L BUN (7-17) mg/dL Creatinine (0.52-1.04) mg/dL Glucose (74-99) mg/dL POC Glucose (mg/dL) 203 H 225 H (75-99) mg/dL Assessment and Plan Plan: Plan: 1. congestive heart failure chronic diastolic dysfunctionwith acute exacerbation. 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 #3 hypertension 4Hyperlipidemia 5 anemia of chronic disease, iron deficient #6 depression #7 acute hypoxic respiratory failure secondary to interstitial venous congestion. Plan: Continue on current medication regime ,monitoring and symptomatic treatment. Pulmonary consult initiated. Close monitoring of renal function, electrolytes with repeat labs ordered for a.m. diuretics as per nephrology. Maintain supportive care. As mentioned above nephrology discussing potential replacement/ peritoneal dialysis.
[2016-11-05 16:41] LABS: Glucose,Whole Blood 146 mg/dL (75-99)
[2016-11-05 20:56] LABS: Glucose,Whole Blood 280 mg/dL (75-99)
[2016-11-06 05:51] LABS: Glucose,Whole Blood 153 mg/dL (75-99)
[2016-11-06 06:30] LABS: Calcium 8.2 mg/dL (8.4-10.2)
[2016-11-06] MEDS: INSULIN LISPRO (humaLOG) 300 UNIT/3 ML VIAL SQ SCH ×4 (06:36→21:24)
[2016-11-06] MEDS: CARVEDILOL 12.5 MG TAB PO SCH ×2 (06:36→17:03)
[2016-11-06] MEDS: SODIUM BICARBONATE TAB 650 MG TAB PO SCH ×3 (08:21→21:24)
[2016-11-06] MEDS: SENNOSIDES-DOCUSATE SODIUM 1 EACH TAB PO PRN (08:21)
[2016-11-06] MEDS: amLODIPine 10 MG TAB PO SCH (08:22)
[2016-11-06] MEDS: hydrALAZINE HCL 25 MG TAB PO SCH ×3 (08:22→21:24)
[2016-11-06] MEDS: ISOSORBIDE MONONITRATE ER 60 MG TAB.ER.24H PO SCH (08:22)
[2016-11-06] MEDS: FUROSEMIDE 10 MG/ML 10 ML VIAL IV SCH ×2 (08:22→21:24)
[2016-11-06] MEDS: ESCITALOPRAM 20 MG TAB PO SCH (08:22)
[2016-11-06] MEDS: ASPIRIN 325 MG TAB PO SCH (08:22)
[2016-11-06] MEDS: ATORVASTATIN 80 MG TAB PO SCH (08:22)
[2016-11-06] MEDS: ALLOPURINOL 100 MG TAB PO SCH (08:22)
[2016-11-06] MEDS: SODIUM FERRIC GLUCONAT-SUCROSE 125 MG in SODIUM CHLORIDE 0.9% 100 ML IVPB SCH (08:23)
[2016-11-06 11:58] LABS: Glucose,Whole Blood 212 mg/dL (75-99)
--- NOTE | 2016-11-06 12:20 | PN ---
The patient is seen for follow up for chronic kidney disease and volume overload. Currently she is maintained on IV Lasix at 60 mg every 12 hours which was increased yesterday. I will continue with the Lasix. The patient states she is feeling better. Her renal function is about the same with serum creatinine at 3.8 mg/DL. I have also discussed with the patient that if her volume status does not improve, she may need to start renal replacement therapy soon. GFR currently is at about 12 mL per minute. On examination, blood pressure is 153/69. Heart rate of 68 per minute. The patient is afebrile. HEENT: Atraumatic, normocephalic. Pupils are equal and round. JVP is not elevated. Lymph nodes are not palpable. thyroid is not enlarged. Examination of the heart S1, S2. Examination of the lungs, bilateral breath sounds are heard. Abdomen is soft, nontender. Examination of the lower extremities shows trace edema. [employer] exam is grossly intact. Labs show sodium 139, potassium 4.0, BUN 106, serum creatinine 3.86. ASSESSMENT: 1. Chronic kidney disease, NKF stage IV secondary to diabetic nephropathy. 2. Acute kidney injury mainly cardiorenal. Maintained on IV Lasix, slowly improving. 3. Volume overload, pulmonary edema, continue increased dose of diuretics. The patient may need to start to renal replacement therapy if her volume status does not improve over the next 24 to 48 hours. The patient is planning to do PT down the road. 4. Hypertension. 5. Hyperlipidemia. 6. Anemia of chronic disease with evidence of iron deficiency as well. Currently status post IV iron. PLAN: Continue IV Lasix. We will reevaluate volume status tomorrow. The patient has been talked to regarding renal replacement therapy if her volume status does not continue to improve. MTDD
--- NOTE | 2016-11-06 13:03 | P.PN ---
Subjective 66-year-old female patient who is having difficulty in breathing. Head the patient has been having acute hypoxic respiratory failure and currently she is on oxygen at 4 L/m nasal cannula. Her chest x-ray findings is typical of CHF. She has an extensive cardiac history. Several years ago she was diagnosed having systolic dysfunction with an ejection fraction of 20-25% and hypertensive heart disease. She is also known to have coronary artery disease and she has undergone previous coronary artery stenting. She has had history of breast cancer with bilateral mastectomy. Remote history of smoking. No chronic lung disease, asthma or COPD. No history of interstitial lung disease. She was hospitalized on 10/30/2016 for increased shortness of breath. She was diagnosed having acute CHF with diastolic dysfunction. The repeat echocardiogram showed improvement in the LV function with an ejection fraction of 50-55% along with moderately severe concentric left ventricular hypertrophy suggestive of hypertensive heart disease and diastolic dysfunction. Doppler of the lower extremities was negative. VQ scan was of a low probability. The patient was diuresed. The patient was discharged home. Note that she is also a component of chronic renal failure and she follows up with nephrology on a regular basis. 12 hours following her discharge the patient comes back with worsening shortness of breath. Chest x-ray still showing CHF findings and the patient is also found to be hypoxemic. She is obese. She is snoring. She has typical features of obstructive sleep apnea although this has not been officially diagnosed. No major edema over the legs. For the past few days the patient was being diuresis with IV Lasix and she is still having trouble breathing. I reviewed a series of chest x-ray and the findings are consistent with cardiomegaly and pulmonary vessel congestion and possibly small bilateral pleural effusion. No aspiration. No pneumonias. No fever. No chills. No night sweats. On 11/03/2016 the patient is being seen in follow-up. Urine output is minimal at this point and the patient is not responding well to diuretics. She has an acute on top of chronic renal failure and the size of the case and there is consideration for dialysis. CAT scan of the chest was done and this was a high resolution CAT scan of the chest and showed evidence of pulmonary vessel congestion and it well as scattered groundglass changes and infiltration. There is also a right-sided pleural effusion. All this findings are reflective an underlying CHF. No chest pain. No other complaints otherwise for now. Objective - Vital Signs Vital signs: Vital Signs Temp 97.8 F 11/06/16 11:17 Pulse 68 11/06/16 11:18 Resp 22 11/06/16 11:18 BP 153/69 11/06/16 11:17 Pulse Ox 92 L 11/06/16 11:17 Intake & Output 11/05/16 11/06/16 11/06/16 18:59 06:59 18:59 Intake Total 800 420 340 Output Total 350 Balance 450 420 340 Weight 91.9 kg Intake: Intake, IV Titration 100 Amount Sodium Ferric Gluconat- 100 Sucrose 125 mg In Sodium Chloride 0.9% 100 ml @ 100 mls/hr IVPB DAILY [facility] Rx#:[id number] Oral 700 420 340 Output: Urine 350 Other: Voiding Method Toilet Toilet Toilet # Voids 1 1 # Bowel Movements 0 - Exam Obese, comfortable likely distress.Head exam was generally normal. There was no scleral icterus or corneal arcus. Mucous membranes were moist. Neck is short and supple and there is significant crowding of the posterior oropharynx. There is no goiter or neck masses. Lungs sounds are diminished bilaterally especially in lung bases. Few crackles can be appreciated in the lung bases bilaterally. No wheezes. No rhonchi.Cardiac exam revealed the PMI to be normally situated and sized. The rhythm was regular and no extrasystoles were noted during several minutes of auscultation. The first and second heart sounds were normal and physiologic splitting of the second heart sound was noted. There were no murmurs, rubs, clicks, or gallops. There is accentuation of the second heart sound. No right ventricular heave or thrill. A faint grade 2/6 systolic ejection murmur can be also appreciated over the anterior chest. Abdomen is obese soft nontender. Organs cannot be accurately palpated due to obesity. No direct tenderness. No rebound tenderness. No guarding.Examination of the extremities revealed easily palpable radial, femoral and pedal pulses. There was no cyanosis, clubbing or edema. - Labs CBC & Chem 7: 11/03/16 06:09 11/06/16 06:00 Labs: Abnormal Lab Results - Last 24 Hours (Table) 11/05/16 11/05/16 11/06/16 Range/Units 16:38 20:54 05:50 Carbon Dioxide (22-30) mmol/L BUN (7-17) mg/dL Creatinine (0.52-1.04) mg/dL Glucose (74-99) mg/dL POC Glucose (mg/dL) 146 H 280 H 153 H (75-99) mg/dL Calcium (8.4-10.2) mg/dL 11/06/16 11/06/16 Range/Units 06:00 11:51 Carbon Dioxide 21 L (22-30) mmol/L BUN 106 H* (7-17) mg/dL Creatinine 3.86 H (0.52-1.04) mg/dL Glucose 141 H (74-99) mg/dL POC Glucose (mg/dL) 212 H (75-99) mg/dL Calcium 8.2 L (8.4-10.2) mg/dL Assessment and Plan Plan: Assessment 1 acute hypoxic respiratory failure with development of bilateral interstitial markings on chest x-ray and based on her history of CHF and hypertensive heart disease and diastolic dysfunction slightly that her shortness of breath is related to interstitial edema/CHF. Based on the recurrent nature of her shortness of breath and hypoxic respiratory failure, further investigation with a high-resolution CAT scan of the chest will be needed to make sure there is no alternative pathology contributing to her dyspnea. 2 obesity with clinical obstructive sleep apnea, diagnoses not been established yet. 3 coronary artery disease with previous coronary intervention and stenting 4 CHF with previous echocardiogram indicating a low ejection fraction of 20-25% yet the most recent echocardiogram showed improvement in the LV function with a component of diastolic dysfunction/hypertensive heart disease 4 diabetes mellitus 5 previous history of CVA 6 hypertension 7 hyperlipidemia 8 chronic renal failure 9 breast cancer with previous bilateral mastectomy and implants 10 anxiety. [address] of the chest is consistent with CHF. Unfortunately the patient is not responding nicely to diuretics. Consider initiating dialysis for ultrafiltration. This will be discussed with nephrology. We'll continue to follow. I also consider the addition of Zaroxolyn enhance diuresis along with Lasix.
--- NOTE | 2016-11-06 13:53 | P.PN ---
Subjective Interval history:66 yo female presenting with worsening dyspnea since this morning. Patient was discharged yesterday after being treated for congestive heart failure exacerbation. Patient states she went home did not take any of her medications and this morning took only her Lasix. She was in the process of organizing her medications and did not have a chance to take them. She did not eat dinner last night. Denies cough. Denies chest pain. Denies lower extremity swelling. Patient states she slept on her back overnight. patient is coming up orthopnea and PND and patient is found to have worsening pulmonary edema on the chest x-ray patient was started on IV Lasix here. 11/03/2016. Receiving IV Ferrlicit. Continues on sodium bicarb. Breathing improved but still short of breath with exertion. O2 sat of 79% on room air after ambulation. Maintained on Lasix IV push, creatinine currently 3.5. Nephrology discussing replacement therapy, peritoneal dialysis. Denies chest pain, palpitations or increasing shortness of breath. 11/04/2016 during the night patient was awakened by increased shortness of breath, received additional Lasix 80 IV push. Worsening renal function, BUN 88 , creatinine 3.84. Lasix dose decreased per nephrology .Breathing improved. F/ U chest x-ray reporting interstitial venous congestion versus interstitial pneumonitis, underlying COPD or interstitial lung disease. 11/05/2016 Patient continues to have significant pulmonary edema, IV Lasix dose was increased will continue to monitor. The of the chest is consistent with pulmonary edema. 11/06/2016 Patient is pretty status did not change. Patient is urinating very little in spite of increased dose of Lasix in nephrology will be evaluated tomorrow for possible renal replacement therapy. Patient is complaining of increasing tightness today because of uremia most probably Objective - Vital Signs Vital signs: Vital Signs Temp 97.8 F 11/06/16 11:17 Pulse 68 11/06/16 11:18 Resp 22 11/06/16 11:18 BP 153/69 11/06/16 11:17 Pulse Ox 92 L 11/06/16 11:17 Intake & Output 11/05/16 11/06/16 11/06/16 18:59 06:59 18:59 Intake Total 800 420 340 Output Total 350 Balance 450 420 340 Weight 91.9 kg Intake: Intake, IV Titration 100 Amount Sodium Ferric Gluconat- 100 Sucrose 125 mg In Sodium Chloride 0.9% 100 ml @ 100 mls/hr IVPB DAILY [facility] Rx#:[id number] Oral 700 420 340 Output: Urine 350 Other: Voiding Method Toilet Toilet Toilet # Voids 1 1 # Bowel Movements 0 - Exam GENERAL: Sitting up in bed, alert and oriented x3, no acute distress. Well developed, well nourished. HEENT: Pupils are round and equally reacting to light. EOMI. No scleral icterus. No conjunctival pallor. Normocephalic, atraumatic. No pharyngeal erythema. No thyromegaly. CARDIOVASCULAR: S1 and S2 present. No murmurs, rubs, or gallops. PULMONARY: Diminshed, no wheezing or crackles. ABDOMEN: Soft, nontender, nondistended, normoactive bowel sounds. No palpable organomegaly. MUSCULOSKELETAL: No joint swelling or deformity. EXTREMITIES: No cyanosis, clubbing;trace pedal edema. NEUROLOGICAL: Gross neurological examination did not reveal any focal deficits. SKIN: No rashes. - Labs CBC & Chem 7: 11/03/16 06:09 11/06/16 06:00 Labs: Abnormal Lab Results - Last 24 Hours (Table) 11/05/16 11/05/16 11/06/16 Range/Units 16:38 20:54 05:50 Carbon Dioxide (22-30) mmol/L BUN (7-17) mg/dL Creatinine (0.52-1.04) mg/dL Glucose (74-99) mg/dL POC Glucose (mg/dL) 146 H 280 H 153 H (75-99) mg/dL Calcium (8.4-10.2) mg/dL 11/06/16 11/06/16 Range/Units 06:00 11:51 Carbon Dioxide 21 L (22-30) mmol/L BUN 106 H* (7-17) mg/dL Creatinine 3.86 H (0.52-1.04) mg/dL Glucose 141 H (74-99) mg/dL POC Glucose (mg/dL) 212 H (75-99) mg/dL Calcium 8.2 L (8.4-10.2) mg/dL Assessment and Plan Plan: Plan: 1. congestive heart failure chronic diastolic dysfunctionwith acute exacerbation. Patient used to have significant pulmonary edema patient will be considered on IV Lasix dose of which was increased to 60 mg twice a day and patient is barely urinating has is pretty status did not change patient mostly will end up needing renal replacement therapy. 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 And may have cardiorenal syndrome #3 hypertension 4Hyperlipidemia 5 anemia of chronic disease, iron deficient #6 depression #7 acute hypoxic respiratory failure secondary to interstitial venous congestion. Plan: Continue on current medication regime ,monitoring and symptomatic treatment. Pulmonary consult initiated. Close monitoring of renal function, electrolytes with repeat labs ordered for a.m. diuretics as per nephrology. Maintain supportive care. As mentioned above nephrology discussing potential replacement/ peritoneal dialysis.
[2016-11-06 16:44] LABS: Glucose,Whole Blood 160 mg/dL (75-99)
[2016-11-06 20:56] LABS: Glucose,Whole Blood 225 mg/dL (75-99)
[2016-11-07 05:54] LABS: Glucose,Whole Blood 161 mg/dL (75-99)
[2016-11-07] MEDS: CARVEDILOL 12.5 MG TAB PO SCH ×2 (06:33→17:20)
[2016-11-07] MEDS: INSULIN LISPRO (humaLOG) 300 UNIT/3 ML VIAL SQ SCH ×4 (06:33→21:12)
[2016-11-07 07:10] LABS: Calcium 8.1 mg/dL (8.4-10.2); Potassium 3.8 mmol/L (3.5-5.1)
--- NOTE | 2016-11-07 08:50 | P.PN ---
Subjective Patient is seen in follow-up for acute kidney injury on chronic kidney disease. Patient has chronic kidney disease stage IV with baseline creatinine near 2.5 secondary to nephrosclerosis and diabetic kidney disease. Her creatinine is stable at 3.81 today. Patient presented to the hospital with dyspnea. She does have history of diastolic CHF. Chest x-ray and CT are suggestive of fluid overload. Patient is maintained on Lasix 60 mg IV twice daily. She is currently resting in bed. Denies any lower extremity edema. Admits to good urine output but not any more than her usual. No vomiting or diarrhea. She is still dyspneic. Vital signs are stable. General: The patient appeared well nourished and normally developed. HEENT: Head exam is unremarkable. Neck is without jugular venous distension. LUNGS: Lungs are clear to auscultation and percussion. Breath sounds decreased. HEART: Rate and Rhythm are regular. First and second heart sounds normal. No murmurs, rubs or gallops. ABDOMEN: Abdominal exam reveals normal bowel sounds. Non-tender and non- distended. No evidence of peritonitis. EXTREMITITES: No clubbing, cyanosis, or edema. Objective - Vital Signs Vital signs: Vital Signs Temp 97.7 F 11/07/16 04:00 Pulse 63 11/07/16 04:00 Resp 19 11/07/16 04:00 BP 190/77 11/07/16 04:00 Pulse Ox 93 L 11/07/16 04:00 Intake & Output 11/06/16 11/07/16 11/07/16 18:59 06:59 18:59 Intake Total 860 Output Total 300 200 Balance 560 -200 Weight 92.5 kg Intake: Intake, IV Titration 100 Amount Sodium Ferric Gluconat- 100 Sucrose 125 mg In Sodium Chloride 0.9% 100 ml @ 100 mls/hr IVPB DAILY [facility] Rx#:[id number] Oral 760 Output: Urine 300 200 Other: Voiding Method Toilet Toilet # Voids 1 1 # Bowel Movements 0 - Labs CBC & Chem 7: 11/03/16 06:09 11/07/16 06:23 Labs: Abnormal Lab Results - Last 24 Hours (Table) 11/06/16 11/06/16 11/06/16 Range/Units 11:51 16:42 20:54 Carbon Dioxide (22-30) mmol/L BUN (7-17) mg/dL Creatinine (0.52-1.04) mg/dL Glucose (74-99) mg/dL POC Glucose (mg/dL) 212 H 160 H 225 H (75-99) mg/dL Calcium (8.4-10.2) mg/dL 11/07/16 11/07/16 Range/Units 05:53 06:23 Carbon Dioxide 21 L (22-30) mmol/L BUN 110 H* (7-17) mg/dL Creatinine 3.81 H (0.52-1.04) mg/dL Glucose 146 H (74-99) mg/dL POC Glucose (mg/dL) 161 H (75-99) mg/dL Calcium 8.1 L (8.4-10.2) mg/dL Assessment and Plan Plan: Assessment: #1. Nonoliguric acute kidney injury mostly prerenal secondary to diuresis. Creatinine stable at 3.81 today. #2. Chronic kidney disease stage IV secondary to diabetic kidney disease and nephrosclerosis with baseline creatinine near 2.5. #3. Diastolic CHF. #4. Anemia of chronic kidney disease. Iron deficiency also noted. #5. Diabetes mellitus. #6. Metabolic acidosis secondary to chronic kidney disease. #7. Fluid overload. Plan: Continue Lasix 60 mg IV twice daily. Add metolazone 5 mg once daily. Ferrlicit 125 mg IV daily for 3 days. Third dose today. Maintain sodium bicarbonate supplementation. Avoid nephrotoxic agents and hypotensive episodes. Repeat electrolytes in the morning. Patient is now agreeing to proceed with renal replacement therapy. Will consult vascular surgery for permacath placement and plan for first treatment of hemodialysis tomorrow. Will get case finisher on board to help facilitate outpatient hemodialysis set up.
[2016-11-07] MEDS: ALLOPURINOL 100 MG TAB PO SCH (09:16)
[2016-11-07] MEDS: ATORVASTATIN 80 MG TAB PO SCH (09:17)
[2016-11-07] MEDS: amLODIPine 10 MG TAB PO SCH (09:17)
[2016-11-07] MEDS: METOLAZONE 5 MG TAB PO SCH (09:17)
[2016-11-07] MEDS: hydrALAZINE HCL 25 MG TAB PO SCH ×3 (09:17→21:12)
[2016-11-07] MEDS: ESCITALOPRAM 20 MG TAB PO SCH (09:17)
[2016-11-07] MEDS: ISOSORBIDE MONONITRATE ER 60 MG TAB.ER.24H PO SCH (09:17)
[2016-11-07] MEDS: ASPIRIN 325 MG TAB PO SCH (09:17)
[2016-11-07] MEDS: SODIUM BICARBONATE TAB 650 MG TAB PO SCH ×3 (09:17→21:12)
[2016-11-07] MEDS: FUROSEMIDE 10 MG/ML 10 ML VIAL IV SCH ×2 (09:17→21:11)
[2016-11-07] MEDS: SODIUM FERRIC GLUCONAT-SUCROSE 125 MG in SODIUM CHLORIDE 0.9% 100 ML IVPB SCH (09:28)
--- NOTE | 2016-11-07 11:29 | PN ---
Mrs. Luu is a 66 -year-old female who was admitted to the hospital with increasing shortness of breath. The patient was recently discharged and readmitted. Her chest x-ray and CT scan findings are consistent with CHF. The patient is on diuretics and has not been diuresing well. The patient is also seen by nephrology. Discussion is being held for possible ultrafiltration and dialysis. Her creatinine is in the range of 3 to 4. She denies any chest pain. Her vital signs show blood pressure 160/70. Pulse rate is 68. Respirations 20. Saturation 92%. Neck is supple. Difficult to evaluate for JVD. Lungs show diminished breath sounds at the bases. Heart S1, S2 heard. Distant heart sounds. Difficult to appreciate any murmurs. Abdomen is soft. Extremities no significant cyanosis or clubbing. Lab values show electrolytes within normal limits. BUN 106, creatinine 3.86. Pro-BNP 8000. FINAL IMPRESSION: 1. Congestive heart failure seems to be diastolic in nature with preserved LV function. 2. Chronic renal failure with acute exacerbation. 3. Hypertension. 4. Hyperlipidemia. 5. Anemia of chronic disease. 6. Coronary artery disease with history of previous stent placement. 7. History of breast cancer with bilateral mastectomy. PLAN: Continue with diuretics. Dr. Haddad is planning to add Zaroxolyn. Nephrology is planning for possible dialysis and ultrafiltration. Prognosis guarded. MTDD
[2016-11-07 12:19] LABS: Glucose,Whole Blood 210 mg/dL (75-99)
--- NOTE | 2016-11-07 12:56 | P.PN ---
Subjective 66-year-old female patient who is having difficulty in breathing. Head the patient has been having acute hypoxic respiratory failure and currently she is on oxygen at 4 L/m nasal cannula. Her chest x-ray findings is typical of CHF. She has an extensive cardiac history. Several years ago she was diagnosed having systolic dysfunction with an ejection fraction of 20-25% and hypertensive heart disease. She is also known to have coronary artery disease and she has undergone previous coronary artery stenting. She has had history of breast cancer with bilateral mastectomy. Remote history of smoking. No chronic lung disease, asthma or COPD. No history of interstitial lung disease. She was hospitalized on 10/30/2016 for increased shortness of breath. She was diagnosed having acute CHF with diastolic dysfunction. The repeat echocardiogram showed improvement in the LV function with an ejection fraction of 50-55% along with moderately severe concentric left ventricular hypertrophy suggestive of hypertensive heart disease and diastolic dysfunction. Doppler of the lower extremities was negative. VQ scan was of a low probability. The patient was diuresed. The patient was discharged home. Note that she is also a component of chronic renal failure and she follows up with nephrology on a regular basis. 12 hours following her discharge the patient comes back with worsening shortness of breath. Chest x-ray still showing CHF findings and the patient is also found to be hypoxemic. She is obese. She is snoring. She has typical features of obstructive sleep apnea although this has not been officially diagnosed. No major edema over the legs. For the past few days the patient was being diuresis with IV Lasix and she is still having trouble breathing. I reviewed a series of chest x-ray and the findings are consistent with cardiomegaly and pulmonary vessel congestion and possibly small bilateral pleural effusion. No aspiration. No pneumonias. No fever. No chills. No night sweats. On 11/06/2016 the patient is being seen in follow-up. Urine output is minimal at this point and the patient is not responding well to diuretics. She has an acute on top of chronic renal failure and the size of the case and there is consideration for dialysis. CAT scan of the chest was done and this was a high resolution CAT scan of the chest and showed evidence of pulmonary vessel congestion and it well as scattered groundglass changes and infiltration. There is also a right-sided pleural effusion. All this findings are reflective an underlying CHF. No chest pain. No other complaints otherwise for now. On 11/07/2016 the patient is essentially the same condition. The plan is to initiate dialysis. A discussion was done with the family including the patient and her and seems that the patient is agreeable for dialysis. She is still on oxygen about 2 by nasal cannula. She has crackles in lung bases bilaterally. She is not producing much of urine. The patient is on Lasix 60 mg IV every 12 hours and Zaroxolyn was also added at 5 mg by mouth on a daily basis. Vascular surgery has been consulted to initiate insertion of a temporary dialysis catheter for subsequent dialysis. Objective - Vital Signs Vital signs: Vital Signs Temp 97.7 F 11/07/16 11:33 Pulse 67 11/07/16 11:33 Resp 18 11/07/16 11:33 BP 155/69 11/07/16 11:33 Pulse Ox 92 L 11/07/16 11:33 Intake & Output 11/06/16 11/07/16 11/07/16 18:59 06:59 18:59 Intake Total 860 180 Output Total 300 200 Balance 560 -200 180 Weight 92.5 kg Intake: Intake, IV Titration 100 Amount Sodium Ferric Gluconat- 100 Sucrose 125 mg In Sodium Chloride 0.9% 100 ml @ 100 mls/hr IVPB DAILY [facility] Rx#:[id number] Oral 760 180 Output: Urine 300 200 Other: Voiding Method Toilet Toilet Toilet # Voids 1 1 # Bowel Movements 0 - Exam Obese, comfortable likely distress.Head exam was generally normal. There was no scleral icterus or corneal arcus. Mucous membranes were moist. Neck is short and supple and there is significant crowding of the posterior oropharynx. There is no goiter or neck masses. Lungs sounds are diminished bilaterally especially in lung bases. Few crackles can be appreciated in the lung bases bilaterally. No wheezes. No rhonchi.Cardiac exam revealed the PMI to be normally situated and sized. The rhythm was regular and no extrasystoles were noted during several minutes of auscultation. The first and second heart sounds were normal and physiologic splitting of the second heart sound was noted. There were no murmurs, rubs, clicks, or gallops. There is accentuation of the second heart sound. No right ventricular heave or thrill. A faint grade 2/6 systolic ejection murmur can be also appreciated over the anterior chest. Abdomen is obese soft nontender. Organs cannot be accurately palpated due to obesity. No direct tenderness. No rebound tenderness. No guarding.Examination of the extremities revealed easily palpable radial, femoral and pedal pulses. There was no cyanosis, clubbing or edema. - Labs CBC & Chem 7: 11/03/16 06:09 11/07/16 06:23 Labs: Abnormal Lab Results - Last 24 Hours (Table) 11/06/16 11/06/16 11/07/16 Range/Units 16:42 20:54 05:53 Carbon Dioxide (22-30) mmol/L BUN (7-17) mg/dL Creatinine (0.52-1.04) mg/dL Glucose (74-99) mg/dL POC Glucose (mg/dL) 160 H 225 H 161 H (75-99) mg/dL Calcium (8.4-10.2) mg/dL 11/07/16 11/07/16 Range/Units 06:23 11:56 Carbon Dioxide 21 L (22-30) mmol/L BUN 110 H* (7-17) mg/dL Creatinine 3.81 H (0.52-1.04) mg/dL Glucose 146 H (74-99) mg/dL POC Glucose (mg/dL) 210 H (75-99) mg/dL Calcium 8.1 L (8.4-10.2) mg/dL Assessment and Plan Plan: Assessment 1 acute hypoxic respiratory failure with development of bilateral interstitial markings on chest x-ray and based on her history of CHF and hypertensive heart disease and diastolic dysfunction slightly that her shortness of breath is related to interstitial edema/CHF. Based on the recurrent nature of her shortness of breath and hypoxic respiratory failure, further investigation with a high-resolution CAT scan of the chest will be needed to make sure there is no alternative pathology contributing to her dyspnea. 2 obesity with clinical obstructive sleep apnea, diagnoses not been established yet. 3 coronary artery disease with previous coronary intervention and stenting 4 CHF with previous echocardiogram indicating a low ejection fraction of 20-25% yet the most recent echocardiogram showed improvement in the LV function with a component of diastolic dysfunction/hypertensive heart disease 4 diabetes mellitus 5 previous history of CVA 6 hypertension 7 hyperlipidemia 8 chronic renal failure 9 breast cancer with previous bilateral mastectomy and implants 10 anxiety. [address] of the chest is consistent with CHF. Unfortunately the patient is not responding nicely to diuretics. Zaroxolyn was added 5 mg daily basis and addition to Lasix 60 mg IV push every 12 hours. Vascular surgery has been consulted for insertion of a temporary dialysis catheter to initiate dialysis. We'll monitor her oxygenation and I suspect that the oxygen levels will improve and the shortness of breath will improve with dialysis and ultrafiltration.
--- NOTE | 2016-11-07 13:47 | P.GSCN ---
History of Present Illness History of present illness: Patient has history of chronic renal failure, history of for diabetes, patient also has a history of CHF and shortness of breath I was consulted for placement of dialysis catheter patient had a CT of the chest patient has a fluid overload Neck is supple no bruit appreciated Chest few crackles the lung bases first and second sound normal Abdomen soft nontende Plan is placement of dialysis catheter risk and complication discussed we will arrange for tomorrow Patient creatinine is 3.81 Past Medical History Past Medical History: Cancer, Heart Failure, CVA/TIA, Diabetes Mellitus, Hyperlipidemia, Hypertension, Myocardial Infarction ([place]), Renal Disease, Seizure Disorder Additional Past Medical History / Comment(s): Pt recently admitted 10/30/16 hypoxic respiratory failure/chf. Other hx: Breast cancer with bilateral mastectomy and chemo, diet controlled diabetes, diabetic bilateral retinopathy, diabetic peripheral neuropathy, CKD stage IV, seizure in 2009, CVA in 2015, hyperlipidemia, hypertension, coronary artery disease with previous insertion of coronary stent and previous myocardial infarction, obesity Last Myocardial Infarction Date:: 2010 History of Any Multi-Drug Resistant Organisms: None Reported Past Surgical History: Breast Surgery, Section, Heart Catheterization With Stent, Hysterectomy Additional Past Surgical History / Comment(s): masectomy-bilateral Past Anesthesia/Blood Transfusion Reactions: Previous Problems w/ Anesthesia Additional Past Anesthesia/Blood Transfusion Reaction / Comm: "hard time waking up from anestheia". Pt has received blood in past without reaction. Date of Last Stent Placement:: 2010 Smoking Status: Never smoker - Past Family History Father Family Medical History: Cancer, Coronary Artery Disease (CAD), Diabetes Mellitus Additional Family Medical History / Comment(s): Father of heart disease at age 63 yrs. Mother Family Medical History: Cancer Additional Family Medical History / Comment(s): Mother had colon cancer. Brother(s) Family Medical History: Cancer, Diabetes Mellitus Sister(s) Family Medical History: Cancer Medications and Allergies Home Medications Medication Instructions Recorded Confirmed Type Atorvastatin [Lipitor] 80 mg PO DAILY 12/29/13 11/02/16 History Allopurinol [Zyloprim] 200 mg PO DAILY 10/30/16 11/02/16 History Biotin 5 mg PO DAILY 10/30/16 11/02/16 History Calcitriol [Rocaltrol] 0.5 mcg PO MOWEFR 10/30/16 11/02/16 History Escitalopram [Lexapro] 20 mg PO DAILY 10/30/16 11/02/16 History Hydrocortisone Cream 1 applic TOPICAL BID PRN 10/30/16 11/02/16 History [Hydrocortisone 2.5% Cream] Losartan Potassium [Cozaar] 50 mg PO DAILY 10/30/16 11/02/16 History Allergies Allergy/AdvReac Type Severity Reaction Status Date / Time morphine Allergy Unknown Verified 11/02/16 10:38 Surgical - Exam Vital Signs Temp Pulse Resp BP Pulse Ox 97.8 F 79 20 194/81 82 L 11/02/16 09:55 11/02/16 09:55 11/02/16 09:55 11/02/16 09:55 11/02/16 09:55 Results - Labs 11/03/16 06:09 11/07/16 06:23 Abnormal Lab Results - Last 24 Hours (Table) 11/06/16 11/06/16 11/07/16 Range/Units 16:42 20:54 05:53 Carbon Dioxide (22-30) mmol/L BUN (7-17) mg/dL Creatinine (0.52-1.04) mg/dL Glucose (74-99) mg/dL POC Glucose (mg/dL) 160 H 225 H 161 H (75-99) mg/dL Calcium (8.4-10.2) mg/dL 11/07/16 11/07/16 Range/Units 06:23 11:56 Carbon Dioxide 21 L (22-30) mmol/L BUN 110 H* (7-17) mg/dL Creatinine 3.81 H (0.52-1.04) mg/dL Glucose 146 H (74-99) mg/dL POC Glucose (mg/dL) 210 H (75-99) mg/dL Calcium 8.1 L (8.4-10.2) mg/dL Diabetes panel 11/07/16 Range/Units 06:23 Sodium 137 (137-145) mmol/L Potassium 3.8 (3.5-5.1) mmol/L Chloride 101 (98-107) mmol/L Carbon Dioxide 21 L (22-30) mmol/L BUN 110 H* (7-17) mg/dL Creatinine 3.81 H (0.52-1.04) mg/dL Glucose 146 H (74-99) mg/dL Calcium 8.1 L (8.4-10.2) mg/dL Calcium panel 11/07/16 Range/Units 06:23 Calcium 8.1 L (8.4-10.2) mg/dL Pituitary panel 11/07/16 Range/Units 06:23 Sodium 137 (137-145) mmol/L Potassium 3.8 (3.5-5.1) mmol/L Chloride 101 (98-107) mmol/L Carbon Dioxide 21 L (22-30) mmol/L BUN 110 H* (7-17) mg/dL Creatinine 3.81 H (0.52-1.04) mg/dL Glucose 146 H (74-99) mg/dL Calcium 8.1 L (8.4-10.2) mg/dL Adrenal panel 11/07/16 Range/Units 06:23 Sodium 137 (137-145) mmol/L Potassium 3.8 (3.5-5.1) mmol/L Chloride 101 (98-107) mmol/L Carbon Dioxide 21 L (22-30) mmol/L BUN 110 H* (7-17) mg/dL Creatinine 3.81 H (0.52-1.04) mg/dL Glucose 146 H (74-99) mg/dL Calcium 8.1 L (8.4-10.2) mg/dL
[2016-11-07 14:59] LABS: Hepatitis B Surface Ag Index 0.07
[2016-11-07 15:04] LABS: Hepatitis B Core IgM Index 0.03
--- NOTE | 2016-11-07 15:13 | P.PN ---
Subjective 66-year-old female who was recently discharged home from the hospital. She has a history of prior TIA, diabetes, hyperlipidemia, hypertension, renal disease, seizure disorder, prior congestive heart failure, chronic kidney disease. She presented to the hospital with symptoms of progressively worsening shortness of breath. Patient had just recently been discharged home from the hospital states that she had received some diuresis in the emergency room and repeat presented to the hospital within 24 hours again quite short of breath. Her BNP level was 8000 on admission. Troponins were also elevated, consistent with her chronic renal failure. Patient was seen and examined this morning, continues to feel short of breath overall. She is scheduled to undergo a CAT scan of the chest today as ordered by pulmonary to rule out underlying pulmonary fibrosis. Continues to be on IV Lasix. 11/07/2016 Patient was seen and examined this morning, feeling about the same. BUN 110, creatinine 3.8, potassium 3.8. Patient was seen today by nephrology and is recommended to initiate dialysis tomorrow. She will be scheduled for a catheter placement today. Objective - Vital Signs Vital signs: Vital Signs Temp 97.7 F 11/07/16 11:33 Pulse 67 11/07/16 11:33 Resp 18 11/07/16 11:33 BP 155/69 11/07/16 11:33 Pulse Ox 92 L 11/07/16 11:33 Intake & Output 11/06/16 11/07/16 11/07/16 18:59 06:59 18:59 Intake Total 860 517 Output Total 300 200 Balance 560 -200 517 Weight 92.5 kg Intake: Intake, IV Titration 100 100 Amount Sodium Ferric Gluconat- 100 100 Sucrose 125 mg In Sodium Chloride 0.9% 100 ml @ 100 mls/hr IVPB DAILY [facility] Rx#:[id number] Oral 760 417 Output: Urine 300 200 Other: Voiding Method Toilet Toilet Toilet # Voids 1 1 2 # Bowel Movements 0 - Exam PHYSICAL EXAMINATION: HEENT: Head is atraumatic, normocephalic. Pupils equal, round. Neck is supple. There is no elevated jugular venous pressure. HEART EXAMINATION: Heart sounds regular, S1 and S2 normal. No murmur or gallop heard. CHEST EXAMINATION: Lungs reveal diminished air entry bilaterally coarse rales bilaterally. No chest wall tenderness is noted on palpation or with deep breathing. ABDOMEN: Soft, nontender. Bowel sounds are heard. No organomegaly noted. EXTREMITIES: 2+ peripheral pulses with evidence of trace peripheral edema and no calf tenderness noted. NEUROLOGIC patient is awake, alert and oriented x3. - Labs CBC & Chem 7: 11/03/16 06:09 11/07/16 06:23 Labs: Abnormal Lab Results - Last 24 Hours (Table) 11/06/16 11/06/16 11/07/16 Range/Units 16:42 20:54 05:53 Carbon Dioxide (22-30) mmol/L BUN (7-17) mg/dL Creatinine (0.52-1.04) mg/dL Glucose (74-99) mg/dL POC Glucose (mg/dL) 160 H 225 H 161 H (75-99) mg/dL Calcium (8.4-10.2) mg/dL 11/07/16 11/07/16 Range/Units 06:23 11:56 Carbon Dioxide 21 L (22-30) mmol/L BUN 110 H* (7-17) mg/dL Creatinine 3.81 H (0.52-1.04) mg/dL Glucose 146 H (74-99) mg/dL POC Glucose (mg/dL) 210 H (75-99) mg/dL Calcium 8.1 L (8.4-10.2) mg/dL Assessment and Plan Plan: Assessment and plan #1 acute on chronic diastolic congestive heart failure #2 noncompliance with medications #3 hypertension #4 hyperlipidemia #5 anemia of chronic disease #6 mild troponin leak likely secondary to heart failure and renal failure #7 acute on chronic kidney failure #8 coronary artery disease with prior stent placement #9 prior CVA #10 breast cancer with prior bilateral mastectomy and implants Plan Patient will be scheduled to undergo dialysis catheter placement and hopefully initiate dialysis tomorrow. We will continue to follow DNP note has been reviewed, I agree with a documented findings and plan of care. Patient was seen and examined.
[2016-11-07 15:16] LABS: Hepatitis C Virus IgG Ab Negative (Negative); Hepatitis C Virus IgG Index 0.13
[2016-11-07 17:05] LABS: Glucose,Whole Blood 208 mg/dL (75-99)
[2016-11-07 20:55] LABS: Glucose,Whole Blood 197 mg/dL (75-99)
[2016-11-08 05:44] LABS: Glucose,Whole Blood 185 mg/dL (75-99)
[2016-11-08] MEDS: CARVEDILOL 12.5 MG TAB PO SCH ×2 (06:29→21:04)
[2016-11-08] MEDS: INSULIN LISPRO (humaLOG) 300 UNIT/3 ML VIAL SQ SCH ×4 (06:29→21:04)
[2016-11-08 07:00] LABS: Calcium 8.1 mg/dL (8.4-10.2); Potassium 3.3 mmol/L (3.5-5.1)
[2016-11-08] MEDS: ISOSORBIDE MONONITRATE ER 60 MG TAB.ER.24H PO SCH (08:41)
[2016-11-08] MEDS: ASPIRIN 325 MG TAB PO SCH (08:41)
[2016-11-08] MEDS: ATORVASTATIN 80 MG TAB PO SCH (08:41)
[2016-11-08] MEDS: amLODIPine 10 MG TAB PO SCH (08:41)
[2016-11-08] MEDS: hydrALAZINE HCL 25 MG TAB PO SCH ×3 (08:42→21:03)
[2016-11-08] MEDS: ESCITALOPRAM 20 MG TAB PO SCH (08:42)
[2016-11-08] MEDS: FUROSEMIDE 10 MG/ML 10 ML VIAL IV SCH ×2 (08:42→21:03)
[2016-11-08] MEDS: SENNOSIDES-DOCUSATE SODIUM 1 EACH TAB PO PRN (08:43)
[2016-11-08] MEDS: METOLAZONE 5 MG TAB PO SCH (08:43)
[2016-11-08] MEDS: SODIUM BICARBONATE TAB 650 MG TAB PO SCH ×3 (08:43→21:04)
[2016-11-08] MEDS ORDERED: POTASSIUM CHLORIDE ER 20 MEQ TAB.ER PO STA (08:59)
--- NOTE | 2016-11-08 09:12 | P.PN ---
Subjective Date of service 11/03/2016. Progress note being dictated for Dr. Loredo Interval history:66 yo female presenting with worsening dyspnea since this morning. Patient was discharged yesterday after being treated for congestive heart failure exacerbation. Patient states she went home did not take any of her medications and this morning took only her Lasix. She was in the process of organizing her medications and did not have a chance to take them. She did not eat dinner last night. Denies cough. Denies chest pain. Denies lower extremity swelling. Patient states she slept on her back overnight. patient is coming up orthopnea and PND and patient is found to have worsening pulmonary edema on the chest x-ray patient was started on IV Lasix here. 11/03/2016. Receiving IV Ferrlicit. Continues on sodium bicarb. Breathing improved but still short of breath with exertion. O2 sat of 79% on room air after ambulation. Maintained on Lasix IV push, creatinine currently 3.5. Nephrology discussing replacement therapy, peritoneal dialysis. Denies chest pain, palpitations or increasing shortness of breath. 11/04/2016 during the night patient was awakened by increased shortness of breath, received additional Lasix 80 IV push. Worsening renal function, BUN 88 , creatinine 3.84. Lasix dose decreased per nephrology .Breathing improved. F/ U chest x-ray reporting interstitial venous congestion versus interstitial pneumonitis, underlying COPD or interstitial lung disease. 11/05/2016 Patient continues to have significant pulmonary edema, IV Lasix dose was increased will continue to monitor. The of the chest is consistent with pulmonary edema. 11/06/2016 Patient is pretty status did not change. Patient is urinating very little in spite of increased dose of Lasix in nephrology will be evaluated tomorrow for possible renal replacement therapy. Patient is complaining of increasing tightness today because of uremia most probably 11/07/2016 maintained on Lasix IV push-24 hour I&O does not reflect negative fluid balance; Zaroxolyn added. patient has decided to proceed with temporary dialysis catheter placement, and initiation of hemodialysis. Complains of fatigue and shortness of breath. Denies chest pain, palpitations. Objective - Vital Signs Vital signs: Vital Signs Temp 97.3 F L 11/07/16 15:15 Pulse 67 11/07/16 15:15 Resp 18 07/24/17 15:15 BP 164/71 11/07/16 15:15 Pulse Ox 92 L 11/07/16 15:15 Intake & Output 11/06/16 11/07/16 11/07/16 18:59 06:59 18:59 Intake Total 860 517 Output Total 300 200 Balance 560 -200 517 Weight 92.5 kg Intake: Intake, IV Titration 100 100 Amount Sodium Ferric Gluconat- 100 100 Sucrose 125 mg In Sodium Chloride 0.9% 100 ml @ 100 mls/hr IVPB DAILY [facility] Rx#:[id number] Oral 760 417 Output: Urine 300 200 Other: Voiding Method Toilet Toilet Toilet # Voids 1 1 2 # Bowel Movements 0 - Exam GENERAL: Sitting up in bed, alert and oriented x3, no acute distress. Well developed, well nourished. HEENT: Pupils are round and equally reacting to light. EOMI. No scleral icterus. No conjunctival pallor. Normocephalic, atraumatic. No pharyngeal erythema. No thyromegaly. CARDIOVASCULAR: S1 and S2 present. Positive systolic murmur, no rubs, or gallops. PULMONARY: Diminshed, no wheezing, fine bibasilar crackles. ABDOMEN: Soft, nontender, nondistended, normoactive bowel sounds. No palpable organomegaly. MUSCULOSKELETAL: No joint swelling or deformity. EXTREMITIES: No cyanosis, clubbing; mild edema. NEUROLOGICAL: Gross neurological examination did not reveal any focal deficits. SKIN: No rashes. - Labs CBC & Chem 7: 11/03/16 06:09 11/08/16 06:29 Labs: Abnormal Lab Results - Last 24 Hours (Table) 11/06/16 11/07/16 11/07/16 Range/Units 20:54 05:53 06:23 Carbon Dioxide 21 L (22-30) mmol/L BUN 110 H* (7-17) mg/dL Creatinine 3.81 H (0.52-1.04) mg/dL Glucose 146 H (74-99) mg/dL POC Glucose (mg/dL) 225 H 161 H (75-99) mg/dL Calcium 8.1 L (8.4-10.2) mg/dL 11/07/16 Range/Units 11:56 Carbon Dioxide (22-30) mmol/L BUN (7-17) mg/dL Creatinine (0.52-1.04) mg/dL Glucose (74-99) mg/dL POC Glucose (mg/dL) 210 H (75-99) mg/dL Calcium (8.4-10.2) mg/dL Assessment and Plan Plan: 1. congestive heart failure chronic diastolic dysfunctionwith acute exacerbation. 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 Possible cardiorenal syndrome. #3 hypertension 4Hyperlipidemia 5 anemia of chronic disease, iron deficient #6 depression #7 acute hypoxic respiratory failure secondary to interstitial venous congestion , possibly interstitial pneumonitis,;underlying COPD or interstitial lung disease per chest x-ray. Plan: Continue on current medication regime ,monitoring and symptomatic treatment. Awaiting vascular consult/placement of hemodialysis catheter and initiation of hemodialysis. Close monitoring of renal function, electrolytes with repeat labs ordered for a.m. diuretics as per nephrology. Maintain supportive care. As mentioned above nephrology discussing potential replacement / peritoneal dialysis. The impression and plan of care has been dictated as directed. : I performed a H&P examination of this patient and discussed the same with the dictator. I agree with the dictator's note. Any additional findings/opinions/ etc. will be noted.
--- NOTE | 2016-11-08 09:31 | P.PN ---
Subjective Patient is seen in follow-up for acute kidney injury on chronic kidney disease. Patient has chronic kidney disease stage IV with baseline creatinine near 2.5 secondary to nephrosclerosis and diabetic kidney disease. Her creatinine is elevated at 4.04 today. Patient presented to the hospital with dyspnea. She does have history of diastolic CHF. Chest x-ray and CT are suggestive of fluid overload. Patient is maintained on Lasix 60 mg IV twice daily. She is currently sitting up in chair. Denies any lower extremity edema. Admits to good urine output but not any more than her usual. No vomiting or diarrhea. She is still dyspneic. She is scheduled to receive permacath today. Vital signs are stable. General: The patient appeared well nourished and normally developed. HEENT: Head exam is unremarkable. Neck is without jugular venous distension. LUNGS: Lungs are clear to auscultation and percussion. Breath sounds decreased. HEART: Rate and Rhythm are regular. First and second heart sounds normal. No murmurs, rubs or gallops. ABDOMEN: Abdominal exam reveals normal bowel sounds. Non-tender and non- distended. No evidence of peritonitis. EXTREMITITES: No clubbing, cyanosis, or edema. Objective - Vital Signs Vital signs: Vital Signs Temp 98.6 F 11/08/16 08:43 Pulse 61 11/08/16 08:43 Resp 18 11/08/16 08:43 BP 174/72 11/08/16 08:43 Pulse Ox 93 L 11/08/16 08:43 Intake & Output 11/07/16 11/08/16 11/08/16 18:59 06:59 18:59 Intake Total 754 120 Output Total 300 Balance 754 -300 120 Weight 92.1 kg Intake: Intake, IV Titration 100 Amount Sodium Ferric Gluconat- 100 Sucrose 125 mg In Sodium Chloride 0.9% 100 ml @ 100 mls/hr IVPB DAILY [facility] Rx#:[id number] Oral 654 120 Output: Urine 300 Other: Voiding Method Toilet Toilet # Voids 2 1 - Labs CBC & Chem 7: 11/03/16 06:09 11/08/16 06:29 Labs: Abnormal Lab Results - Last 24 Hours (Table) 11/07/16 11/07/16 11/07/16 Range/Units 11:56 16:49 20:54 Potassium (3.5-5.1) mmol/L BUN (7-17) mg/dL Creatinine (0.52-1.04) mg/dL Glucose (74-99) mg/dL POC Glucose (mg/dL) 210 H 208 H 197 H (75-99) mg/dL Calcium (8.4-10.2) mg/dL 11/08/16 11/08/16 Range/Units 05:42 06:29 Potassium 3.3 L (3.5-5.1) mmol/L BUN 117 H* (7-17) mg/dL Creatinine 4.04 H (0.52-1.04) mg/dL Glucose 168 H (74-99) mg/dL POC Glucose (mg/dL) 185 H (75-99) mg/dL Calcium 8.1 L (8.4-10.2) mg/dL Assessment and Plan Plan: Assessment: #1. Nonoliguric acute kidney injury mostly prerenal secondary to diuresis. Creatinine elevated at 4.04 today. #2. Chronic kidney disease stage IV secondary to diabetic kidney disease and nephrosclerosis with baseline creatinine near 2.5. #3. Diastolic CHF. #4. Anemia of chronic kidney disease. Iron deficiency also noted - status post 3 doses of IV iron. #5. Diabetes mellitus. #6. Metabolic acidosis secondary to chronic kidney disease. Improved. #7. Fluid overload. #8. Hypokalemia from diuresis. Plan: Continue Lasix 60 mg IV twice daily. Maintain metolazone 5 mg once daily. Maintain sodium bicarbonate supplementation. Avoid nephrotoxic agents and hypotensive episodes. Repeat electrolytes in the morning. Patient is now agreeing to proceed with renal replacement therapy - scheduled for Permacath placement today and first treatment of hemodialysis. district wildlife manager on board to help facilitate outpatient hemodialysis set up. Replace potassium. 40 mEq today. Also check magnesium level.
[2016-11-08] MEDS: ALLOPURINOL 100 MG TAB PO SCH (09:34)
[2016-11-08 12:18] LABS: Glucose,Whole Blood 210 mg/dL (75-99)
[2016-11-08] MEDS ORDERED: SODIUM CHLORIDE 0.9% 500 ML IV ONE (14:27)
[2016-11-08] MEDS ORDERED: MIDAZOLAM 2 MG/2 ML VIAL IV ONE (14:35)
[2016-11-08] MEDS ORDERED: LIDOCAINE 2% INJ 20 MG/ML SQ ONE (14:36)
--- NOTE | 2016-11-08 15:06 | P.PCN ---
Preoperative Diagnosis: Postoperative Diagnosis: Procedure(s) Performed: Implants: Indications for Procedure: Operative Findings: Description of Procedure: Preoperative diagnoses is acute chronic renal failure Ultrasound-guided 28 same dialysis catheter right internal jugular approach Procedure patient brought to the Logistics Administrator Ry of the neck and chest was prepped and draped applied usual standard manner 1% lidocaine for infected neck and chest area micropuncture introduced ultrasound-guided right internal jugular vein micropuncture guidewire was passed 4-Angolan dilator on advanced on the top of guidewire then we'll use a regular guidewire which was parked at the inferior vena cava tunnel was created through the terminal be brought 28 same dialysis catheter. After that sheath and was advanced. The guidewire through the sheath we introduced the dialysis catheter tip of the catheter was at superior vena cava and an atrium flushed with heparin saline and Hep-Lock secured with the Vicryl and nylon dressing applied patient are to the procedure well
--- NOTE | 2016-11-08 15:16 | P.PN ---
Subjective 66-year-old female patient who is having difficulty in breathing. Head the patient has been having acute hypoxic respiratory failure and currently she is on oxygen at 4 L/m nasal cannula. Her chest x-ray findings is typical of CHF. She has an extensive cardiac history. Several years ago she was diagnosed having systolic dysfunction with an ejection fraction of 20-25% and hypertensive heart disease. She is also known to have coronary artery disease and she has undergone previous coronary artery stenting. She has had history of breast cancer with bilateral mastectomy. Remote history of smoking. No chronic lung disease, asthma or COPD. No history of interstitial lung disease. She was hospitalized on 10/30/2016 for increased shortness of breath. She was diagnosed having acute CHF with diastolic dysfunction. The repeat echocardiogram showed improvement in the LV function with an ejection fraction of 50-55% along with moderately severe concentric left ventricular hypertrophy suggestive of hypertensive heart disease and diastolic dysfunction. Doppler of the lower extremities was negative. VQ scan was of a low probability. The patient was diuresed. The patient was discharged home. Note that she is also a component of chronic renal failure and she follows up with nephrology on a regular basis. 12 hours following her discharge the patient comes back with worsening shortness of breath. Chest x-ray still showing CHF findings and the patient is also found to be hypoxemic. She is obese. She is snoring. She has typical features of obstructive sleep apnea although this has not been officially diagnosed. No major edema over the legs. For the past few days the patient was being diuresis with IV Lasix and she is still having trouble breathing. I reviewed a series of chest x-ray and the findings are consistent with cardiomegaly and pulmonary vessel congestion and possibly small bilateral pleural effusion. No aspiration. No pneumonias. No fever. No chills. No night sweats. On 11/06/2016 the patient is being seen in follow-up. Urine output is minimal at this point and the patient is not responding well to diuretics. She has an acute on top of chronic renal failure and the size of the case and there is consideration for dialysis. CAT scan of the chest was done and this was a high resolution CAT scan of the chest and showed evidence of pulmonary vessel congestion and it well as scattered groundglass changes and infiltration. There is also a right-sided pleural effusion. All this findings are reflective an underlying CHF. No chest pain. No other complaints otherwise for now. On 11/07/2016 the patient is essentially the same condition. The plan is to initiate dialysis. A discussion was done with the family including the patient and her and seems that the patient is agreeable for dialysis. She is still on oxygen about 2 by nasal cannula. She has crackles in lung bases bilaterally. She is not producing much of urine. The patient is on Lasix 60 mg IV every 12 hours and Zaroxolyn was also added at 5 mg by mouth on a daily basis. Vascular surgery has been consulted to initiate insertion of a temporary dialysis catheter for subsequent dialysis. The patient is seen again today 11/08/2016 in follow-up on the selective care unit. She is currently sitting up in a chair at the bedside. She is awake and alert in no acute distress. She still has complaints of dyspnea on minimal exertion. The plan is for hemodialysis catheter insertion and possible renal replacement therapy later today. Her current BUN is 117 with a creatinine of 4.04. She is maintaining O2 saturations in the mid 90s on 4 L/m per nasal cannula. She is currently afebrile. She remains on Lasix 60 mg every 12 hours along with Zaroxolyn. Objective - Vital Signs Vital signs: Vital Signs Temp 97.4 F L 11/08/16 11:15 Pulse 66 11/08/16 11:15 Resp 18 11/08/16 11:15 BP 165/73 11/08/16 11:15 Pulse Ox 96 11/08/16 11:15 Intake & Output 11/07/16 11/08/16 11/08/16 18:59 06:59 18:59 Intake Total 754 520 Output Total 300 400 Balance 754 -300 120 Weight 92.1 kg Intake: IV 100 Intake, IV Titration 100 Amount Sodium Ferric Gluconat- 100 Sucrose 125 mg In Sodium Chloride 0.9% 100 ml @ 100 mls/hr IVPB DAILY [facility] Rx#:[id number] Oral 654 420 Output: Urine 300 400 Other: Voiding Method Toilet Toilet # Voids 2 1 - Exam Obese, comfortable likely distress.Head exam was generally normal. There was no scleral icterus or corneal arcus. Mucous membranes were moist. Neck is short and supple and there is significant crowding of the posterior oropharynx. There is no goiter or neck masses. Lungs sounds are diminished bilaterally especially in lung bases. Few crackles can be appreciated in the lung bases bilaterally. No wheezes. No rhonchi.Cardiac exam revealed the PMI to be normally situated and sized. The rhythm was regular and no extrasystoles were noted during several minutes of auscultation. The first and second heart sounds were normal and physiologic splitting of the second heart sound was noted. There were no murmurs, rubs, clicks, or gallops. There is accentuation of the second heart sound. No right ventricular heave or thrill. A faint grade 2/6 systolic ejection murmur can be also appreciated over the anterior chest. Abdomen is obese soft nontender. Organs cannot be accurately palpated due to obesity. No direct tenderness. No rebound tenderness. No guarding.Examination of the extremities revealed easily palpable radial, femoral and pedal pulses. There was no cyanosis, clubbing or edema. - Labs CBC & Chem 7: 11/03/16 06:09 11/08/16 06:29 Labs: Abnormal Lab Results - Last 24 Hours (Table) 11/07/16 11/07/16 11/08/16 Range/Units 16:49 20:54 05:42 Potassium (3.5-5.1) mmol/L BUN (7-17) mg/dL Creatinine (0.52-1.04) mg/dL Glucose (74-99) mg/dL POC Glucose (mg/dL) 208 H 197 H 185 H (75-99) mg/dL Calcium (8.4-10.2) mg/dL 11/08/16 11/08/16 Range/Units 06:29 12:17 Potassium 3.3 L (3.5-5.1) mmol/L BUN 117 H* (7-17) mg/dL Creatinine 4.04 H (0.52-1.04) mg/dL Glucose 168 H (74-99) mg/dL POC Glucose (mg/dL) 210 H (75-99) mg/dL Calcium 8.1 L (8.4-10.2) mg/dL Assessment and Plan Plan: Assessment 1 acute hypoxic respiratory failure with development of bilateral interstitial markings on chest x-ray and based on her history of CHF and hypertensive heart disease and diastolic dysfunction slightly that her shortness of breath is related to interstitial edema/CHF. Computed tomography scan of the chest was consistent with congestive heart failure. 2 obesity with clinical obstructive sleep apnea, diagnoses not been established yet. 3 coronary artery disease with previous coronary intervention and stenting 4 CHF with previous echocardiogram indicating a low ejection fraction of 20-25% yet the most recent echocardiogram showed improvement in the LV function with a component of diastolic dysfunction/hypertensive heart disease 4 diabetes mellitus 5 previous history of CVA 6 hypertension 7 hyperlipidemia 8 chronic renal failure 9 breast cancer with previous bilateral mastectomy and implants 10 anxiety. 11 osteoarthritis Plan: The patient was seen and evaluated by Dr. Haddad. The plan is for catheter placement and subsequent renal replacement therapy. In the interim she'll continue on diuretics. We'll continue to titrate down the FiO2 while maintaining O2 saturations greater than 90%. We'll continue to follow.
--- NOTE | 2016-11-08 15:32 | P.PN ---
Subjective 66-year-old female who was recently discharged home from the hospital. She has a history of prior TIA, diabetes, hyperlipidemia, hypertension, renal disease, seizure disorder, prior congestive heart failure, chronic kidney disease. She presented to the hospital with symptoms of progressively worsening shortness of breath. Patient had just recently been discharged home from the hospital states that she had received some diuresis in the emergency room and repeat presented to the hospital within 24 hours again quite short of breath. Her BNP level was 8000 on admission. Troponins were also elevated, consistent with her chronic renal failure. Patient was seen and examined this morning, continues to feel short of breath overall. She is scheduled to undergo a CAT scan of the chest today as ordered by pulmonary to rule out underlying pulmonary fibrosis. Continues to be on IV Lasix. 11/07/2016 Patient was seen and examined this morning, feeling about the same. BUN 110, creatinine 3.8, potassium 3.8. Patient was seen today by nephrology and is recommended to initiate dialysis tomorrow. She will be scheduled for a catheter placement today. 11/08/2016. Patient seen and examined this morning, dialysis catheter was not placed yesterday but it is scheduled to be placed at 1:00 today.BUN 117, creatinine 4.04 today. Potassium 3.3. Objective - Vital Signs Vital signs: Vital Signs Temp 97.4 F L 11/08/16 11:15 Pulse 66 11/08/16 11:15 Resp 18 11/08/16 11:15 BP 165/73 11/08/16 11:15 Pulse Ox 96 11/08/16 11:15 Intake & Output 11/07/16 11/08/16 11/08/16 18:59 06:59 18:59 Intake Total 754 520 Output Total 300 400 Balance 754 -300 120 Weight 92.1 kg Intake: IV 100 Intake, IV Titration 100 Amount Sodium Ferric Gluconat- 100 Sucrose 125 mg In Sodium Chloride 0.9% 100 ml @ 100 mls/hr IVPB DAILY [facility] Rx#:[id number] Oral 654 420 Output: Urine 300 400 Other: Voiding Method Toilet Toilet # Voids 2 1 - Exam PHYSICAL EXAMINATION: HEENT: Head is atraumatic, normocephalic. Pupils equal, round. Neck is supple. There is no elevated jugular venous pressure. HEART EXAMINATION: Heart sounds regular, S1 and S2 normal. No murmur or gallop heard. CHEST EXAMINATION: Lungs reveal diminished air entry bilaterally coarse rales bilaterally. No chest wall tenderness is noted on palpation or with deep breathing. ABDOMEN: Soft, nontender. Bowel sounds are heard. No organomegaly noted. EXTREMITIES: 2+ peripheral pulses with evidence of trace peripheral edema and no calf tenderness noted. NEUROLOGIC patient is awake, alert and oriented x3. - Labs CBC & Chem 7: 11/03/16 06:09 11/08/16 06:29 Labs: Abnormal Lab Results - Last 24 Hours (Table) 11/07/16 11/07/16 11/08/16 Range/Units 16:49 20:54 05:42 Potassium (3.5-5.1) mmol/L BUN (7-17) mg/dL Creatinine (0.52-1.04) mg/dL Glucose (74-99) mg/dL POC Glucose (mg/dL) 208 H 197 H 185 H (75-99) mg/dL Calcium (8.4-10.2) mg/dL 11/08/16 11/08/16 Range/Units 06:29 12:17 Potassium 3.3 L (3.5-5.1) mmol/L BUN 117 H* (7-17) mg/dL Creatinine 4.04 H (0.52-1.04) mg/dL Glucose 168 H (74-99) mg/dL POC Glucose (mg/dL) 210 H (75-99) mg/dL Calcium 8.1 L (8.4-10.2) mg/dL Assessment and Plan Plan: Assessment and plan #1 acute on chronic diastolic congestive heart failure #2 noncompliance with medications #3 hypertension #4 hyperlipidemia #5 anemia of chronic disease #6 mild troponin leak likely secondary to heart failure and renal failure #7 acute on chronic kidney failure #8 coronary artery disease with prior stent placement #9 prior CVA #10 breast cancer with prior bilateral mastectomy and implants Plan Patient will be scheduled to undergo dialysis catheter placement today along with dialysis. We will continue to follow DNP note has been reviewed, I agree with a documented findings and plan of care. Patient was seen and examined.
--- NOTE | 2016-11-08 16:22 | P.PN ---
Subjective Date of service 11/08/2016. Progress note being dictated for Dr. Loredo Interval history:66 yo female presenting with worsening dyspnea since this morning. Patient was discharged yesterday after being treated for congestive heart failure exacerbation. Patient states she went home did not take any of her medications and this morning took only her Lasix. She was in the process of organizing her medications and did not have a chance to take them. She did not eat dinner last night. Denies cough. Denies chest pain. Denies lower extremity swelling. Patient states she slept on her back overnight. patient is coming up orthopnea and PND and patient is found to have worsening pulmonary edema on the chest x-ray patient was started on IV Lasix here. 11/03/2016. Receiving IV Ferrlicit. Continues on sodium bicarb. Breathing improved but still short of breath with exertion. O2 sat of 79% on room air after ambulation. Maintained on Lasix IV push, creatinine currently 3.5. Nephrology discussing replacement therapy, peritoneal dialysis. Denies chest pain, palpitations or increasing shortness of breath. 11/04/2016 during the night patient was awakened by increased shortness of breath, received additional Lasix 80 IV push. Worsening renal function, BUN 88 , creatinine 3.84. Lasix dose decreased per nephrology .Breathing improved. F/ U chest x-ray reporting interstitial venous congestion versus interstitial pneumonitis, underlying COPD or interstitial lung disease. 11/05/2016 Patient continues to have significant pulmonary edema, IV Lasix dose was increased will continue to monitor. The of the chest is consistent with pulmonary edema. 11/06/2016 Patient is pretty status did not change. Patient is urinating very little in spite of increased dose of Lasix in nephrology will be evaluated tomorrow for possible renal replacement therapy. Patient is complaining of increasing tightness today because of uremia most probably 11/07/2016 maintained on Lasix IV push-24 hour I&O does not reflect negative fluid balance; Zaroxolyn added. patient has decided to proceed with temporary dialysis catheter placement, and initiation of hemodialysis. Complains of fatigue and shortness of breath. Denies chest pain, palpitations. 11/08/2016 awaiting placement of temporary dialysis catheter, scheduled for today. Maintained on both Lasix and Zaroxolyn, dyspnea unchanged. BUN 117, creatinine 4.04, potassium 3.3. Denies chest pain, palpitations. Afebrile. Objective - Vital Signs Vital signs: Vital Signs Temp 97.4 F L 11/08/16 15:15 Pulse 65 11/08/16 15:15 Resp 18 11/08/16 15:15 BP 142/65 11/08/16 15:15 Pulse Ox 93 L 11/08/16 15:15 Intake & Output 11/07/16 11/08/16 11/08/16 18:59 06:59 18:59 Intake Total 754 640 Output Total 300 400 Balance 754 -300 240 Weight 92.1 kg Intake: IV 100 Intake, IV Titration 100 Amount Sodium Ferric Gluconat- 100 Sucrose 125 mg In Sodium Chloride 0.9% 100 ml @ 100 mls/hr IVPB DAILY [facility] Rx#:[id number] Oral 654 540 Output: Urine 300 400 Other: Voiding Method Toilet Toilet # Voids 2 1 - Exam GENERAL: Sitting up in chair, alert and oriented x3, no acute distress. Well developed, well nourished. HEENT: Pupils are round and equally reacting to light. EOMI. No scleral icterus. No conjunctival pallor. Normocephalic, atraumatic. No pharyngeal erythema. No thyromegaly. CARDIOVASCULAR: S1 and S2 present. Positive systolic murmur, no rubs, or gallops. PULMONARY: Diminshed, no wheezing, fine bibasilar crackles. ABDOMEN: Soft, nontender, nondistended, normoactive bowel sounds. No palpable organomegaly. MUSCULOSKELETAL: No joint swelling or deformity. EXTREMITIES: No cyanosis, clubbing; positive edema. NEUROLOGICAL: Gross neurological examination did not reveal any focal deficits. SKIN: No rashes. - Labs CBC & Chem 7: 11/03/16 06:09 11/08/16 06:29 Labs: Abnormal Lab Results - Last 24 Hours (Table) 11/07/16 11/07/16 11/08/16 Range/Units 16:49 20:54 05:42 Potassium (3.5-5.1) mmol/L BUN (7-17) mg/dL Creatinine (0.52-1.04) mg/dL Glucose (74-99) mg/dL POC Glucose (mg/dL) 208 H 197 H 185 H (75-99) mg/dL Calcium (8.4-10.2) mg/dL 11/08/16 11/08/16 Range/Units 06:29 12:17 Potassium 3.3 L (3.5-5.1) mmol/L BUN 117 H* (7-17) mg/dL Creatinine 4.04 H (0.52-1.04) mg/dL Glucose 168 H (74-99) mg/dL POC Glucose (mg/dL) 210 H (75-99) mg/dL Calcium 8.1 L (8.4-10.2) mg/dL Assessment and Plan Plan: 1. congestive heart failure chronic diastolic dysfunctionwith acute exacerbation. 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 Possible cardiorenal syndrome. #3 hypertension 4Hyperlipidemia 5 anemia of chronic disease, iron deficient #6 depression #7 acute hypoxic respiratory failure secondary to interstitial venous congestion , possibly interstitial pneumonitis,;underlying COPD or interstitial lung disease per chest x-ray. Plan: Continue on current medication regime ,monitoring and symptomatic treatment. Maintain diuretics. Pending placement of hemodialysis catheter and initiation of hemodialysis. Close monitoring of renal function, electrolytes with repeat labs ordered for a.m. Maintain supportive care. The impression and plan of care has been dictated as directed. : I performed a H&P examination of this patient and discussed the same with the dictator. I agree with the dictator's note. Any additional findings/opinions/ etc. will be noted.
[2016-11-08 16:33] LABS: Glucose,Whole Blood 183 mg/dL (75-99)
--- NOTE | 2016-11-08 16:55 | XR ---
EXAMINATION TYPE: XR chest 1V portable at 4:24 PM DATE OF EXAM: 11/08/2016 COMPARISON: November 04, 2016 HISTORY: Hemodialysis catheter placement TECHNIQUE: Portable AP upright film FINDINGS: Since the prior study a right IJ hemodialysis catheter has been placed, with tips superimp osed over the distal SVC and cavoatrial junction. EKG leads noted. There is no pneumothorax. Pleural spaces are negative. There remains moderate silhouetting of the pulmonary vasculature symmetrically, by a fine reticular p attern reaching the periphery as septal lines. Mildly enlarged cardiac silhouette redemonstrated. Bones and soft tissues are unremarkable. IMPRESSION: 1. Interval placement of right IJ hemodialysis catheter without pneumothorax or pleural effusion. 2. Stable appearance to the interstitial phase pulmonary edema pattern seen on the prior study. 3. No new processes.
[2016-11-08 21:05] LABS: Glucose,Whole Blood 174 mg/dL (75-99)
[2016-11-09 05:46] LABS: Glucose,Whole Blood 169 mg/dL (75-99)
[2016-11-09 06:45] LABS: Calcium 8.4 mg/dL (8.4-10.2); Phosphorous 4.7 mg/dL (2.5-4.5); Potassium 3.5 mmol/L (3.5-5.1)
[2016-11-09] MEDS: CARVEDILOL 12.5 MG TAB PO SCH ×2 (06:54→17:40)
[2016-11-09] MEDS: INSULIN LISPRO (humaLOG) 300 UNIT/3 ML VIAL SQ SCH ×4 (06:54→21:42)
[2016-11-09] MEDS ORDERED: traMADol 50 MG TAB PO PRN (07:03)
--- NOTE | 2016-11-09 09:03 | P.PN ---
Subjective Patient is seen in follow-up for acute kidney injury on chronic kidney disease. Patient has chronic kidney disease stage IV with baseline creatinine near 2.5 secondary to nephrosclerosis and diabetic kidney disease. Her creatinine is elevated at 4.04 today. Patient presented to the hospital with dyspnea. She does have history of diastolic CHF. Chest x-ray and CT are suggestive of fluid overload. Patient is maintained on Lasix 60 mg IV twice daily. She is currently resting in bed. Denies any lower extremity edema. States she is voiding. No vomiting or diarrhea. She is still dyspneic but improved. She underwent first treatment of hemodialysis on November 08. Vital signs are stable. General: The patient appeared well nourished and normally developed. HEENT: Head exam is unremarkable. Neck is without jugular venous distension. LUNGS: Lungs are clear to auscultation and percussion. Breath sounds decreased. HEART: Rate and Rhythm are regular. First and second heart sounds normal. No murmurs, rubs or gallops. ABDOMEN: Abdominal exam reveals normal bowel sounds. Non-tender and non- distended. No evidence of peritonitis. EXTREMITITES: No clubbing, cyanosis, or edema. Objective - Vital Signs Vital signs: Vital Signs Temp 97.6 F 11/09/16 00:00 Pulse 67 11/09/16 04:00 Resp 18 11/09/16 04:00 BP 162/74 11/09/16 04:00 Pulse Ox 94 L 11/09/16 04:00 Intake & Output 11/08/16 11/09/16 11/09/16 18:59 06:59 18:59 Intake Total 640 Output Total 400 Balance 240 Weight 89.5 kg Intake: IV 100 Oral 540 Output: Urine 400 Other: Voiding Method Toilet # Voids 1 - Labs CBC & Chem 7: 11/03/16 06:09 11/09/16 05:50 Labs: Abnormal Lab Results - Last 24 Hours (Table) 11/08/16 11/08/16 11/08/16 Range/Units 12:17 16:31 21:02 Chloride (98-107) mmol/L BUN (7-17) mg/dL Creatinine (0.52-1.04) mg/dL Glucose (74-99) mg/dL POC Glucose (mg/dL) 210 H 183 H 174 H (75-99) mg/dL Phosphorus (2.5-4.5) mg/dL 11/09/16 11/09/16 Range/Units 05:45 05:50 Chloride 97 L (98-107) mmol/L BUN 82 H* (7-17) mg/dL Creatinine 3.20 H (0.52-1.04) mg/dL Glucose 160 H (74-99) mg/dL POC Glucose (mg/dL) 169 H (75-99) mg/dL Phosphorus 4.7 H (2.5-4.5) mg/dL Assessment and Plan Plan: Assessment: #1. Nonoliguric acute kidney injury secondary to ATN from cardiorenal syndrome. Now hemodialysis dependent. #2. Chronic kidney disease stage IV secondary to diabetic kidney disease and nephrosclerosis with baseline creatinine near 2.5. #3. Diastolic CHF. #4. Anemia of chronic kidney disease. Iron deficiency also noted - status post 3 doses of IV iron. #5. Diabetes mellitus. #6. Metabolic acidosis secondary to chronic kidney disease. Improved. #7. Fluid overload. #8. Hypokalemia from diuresis. Magnesium and replete. Plan: Continue Lasix 60 mg IV twice daily. Maintain metolazone 5 mg once daily. Maintain sodium bicarbonate supplementation. Avoid nephrotoxic agents and hypotensive episodes. Repeat electrolytes in the morning. Second treatment of hemodialysis today. Surgery has also been consulted for PD catheter placement this admission. hotel office manager on board to help facilitate outpatient hemodialysis set up. Replace potassium. 40 mEq today.
[2016-11-09] MEDS: ATORVASTATIN 80 MG TAB PO SCH (09:05)
[2016-11-09] MEDS: FUROSEMIDE 10 MG/ML 10 ML VIAL IV SCH ×2 (09:05→21:41)
[2016-11-09] MEDS ORDERED: POTASSIUM CHLORIDE ER 20 MEQ TAB.ER PO STA (09:06)
[2016-11-09] MEDS: METOLAZONE 5 MG TAB PO SCH (09:06)
[2016-11-09] MEDS: SODIUM BICARBONATE TAB 650 MG TAB PO SCH ×3 (09:07→21:41)
[2016-11-09] MEDS: ESCITALOPRAM 20 MG TAB PO SCH (09:07)
--- NOTE | 2016-11-09 10:51 | XR ---
EXAMINATION TYPE: XR chest 1V DATE OF EXAM: 11/09/2016 HISTORY: chf. REFERENCE: Previous study dated 11/08/2016. FINDINGS: There is a large-bore, double-lumen catheter in place via a right internal jugular approach . Its tip is at the cavoatrial junction. The heart is mildly enlarged. There is vascular congestion and pulmonary edema. This may have improve d slightly from previous. No definite pleural fluid is seen. IMPRESSION: THERE MAY HAVE BEEN A SLIGHT IMPROVEMENT IN THE APPEARANCE OF THE PATIENT'S CONGESTIVE HEART FAILURE.
[2016-11-09 11:42] LABS: Glucose,Whole Blood 186 mg/dL (75-99)
[2016-11-09] MEDS: hydrALAZINE HCL 25 MG TAB PO SCH ×3 (12:21→21:41)
--- NOTE | 2016-11-09 12:32 | IR ---
Fluoroscopy HISTORY: Renal failure 0.65 minutes fluoroscopy time supplied to the referring clinician. 509 intraoperative C-arm images d ocument the procedure. See dictated report from vascular surgery.
--- NOTE | 2016-11-09 14:16 | P.PN ---
Subjective 66-year-old female patient who is having difficulty in breathing. Head the patient has been having acute hypoxic respiratory failure and currently she is on oxygen at 4 L/m nasal cannula. Her chest x-ray findings is typical of CHF. She has an extensive cardiac history. Several years ago she was diagnosed having systolic dysfunction with an ejection fraction of 20-25% and hypertensive heart disease. She is also known to have coronary artery disease and she has undergone previous coronary artery stenting. She has had history of breast cancer with bilateral mastectomy. Remote history of smoking. No chronic lung disease, asthma or COPD. No history of interstitial lung disease. She was hospitalized on 10/30/2016 for increased shortness of breath. She was diagnosed having acute CHF with diastolic dysfunction. The repeat echocardiogram showed improvement in the LV function with an ejection fraction of 50-55% along with moderately severe concentric left ventricular hypertrophy suggestive of hypertensive heart disease and diastolic dysfunction. Doppler of the lower extremities was negative. VQ scan was of a low probability. The patient was diuresed. The patient was discharged home. Note that she is also a component of chronic renal failure and she follows up with nephrology on a regular basis. 12 hours following her discharge the patient comes back with worsening shortness of breath. Chest x-ray still showing CHF findings and the patient is also found to be hypoxemic. She is obese. She is snoring. She has typical features of obstructive sleep apnea although this has not been officially diagnosed. No major edema over the legs. For the past few days the patient was being diuresis with IV Lasix and she is still having trouble breathing. I reviewed a series of chest x-ray and the findings are consistent with cardiomegaly and pulmonary vessel congestion and possibly small bilateral pleural effusion. No aspiration. No pneumonias. No fever. No chills. No night sweats. On 11/06/2016 the patient is being seen in follow-up. Urine output is minimal at this point and the patient is not responding well to diuretics. She has an acute on top of chronic renal failure and the size of the case and there is consideration for dialysis. CAT scan of the chest was done and this was a high resolution CAT scan of the chest and showed evidence of pulmonary vessel congestion and it well as scattered groundglass changes and infiltration. There is also a right-sided pleural effusion. All this findings are reflective an underlying CHF. No chest pain. No other complaints otherwise for now. On 11/07/2016 the patient is essentially the same condition. The plan is to initiate dialysis. A discussion was done with the family including the patient and her and seems that the patient is agreeable for dialysis. She is still on oxygen about 2 by nasal cannula. She has crackles in lung bases bilaterally. She is not producing much of urine. The patient is on Lasix 60 mg IV every 12 hours and Zaroxolyn was also added at 5 mg by mouth on a daily basis. Vascular surgery has been consulted to initiate insertion of a temporary dialysis catheter for subsequent dialysis. The patient is seen again today 11/08/2016 in follow-up on the selective care unit. She is currently sitting up in a chair at the bedside. She is awake and alert in no acute distress. She still has complaints of dyspnea on minimal exertion. The plan is for hemodialysis catheter insertion and possible renal replacement therapy later today. Her current BUN is 117 with a creatinine of 4.04. She is maintaining O2 saturations in the mid 90s on 4 L/m per nasal cannula. She is currently afebrile. She remains on Lasix 60 mg every 12 hours along with Zaroxolyn. The patient is seen again today 11/09/2016 in follow-up on the selective care unit. She is awake and alert in no acute distress. She is breathing easier today as compared to yesterday. Chest x-ray revealed slight improvement in the congestive heart failure. She did receive 1 round of renal replacement therapy yesterday and is due for another one today. Creatinine is improved to 3.20 with a BUN of 82. Her oxygen requirements have improved she is down to 2 L/m per nasal cannula and maintaining O2 saturations in the mid 90s. She is afebrile. Hemodynamically stable. Objective - Vital Signs Vital signs: Vital Signs Temp 98 F 11/09/16 11:56 Pulse 66 11/09/16 11:56 Resp 16 11/09/16 11:56 BP 175/74 11/09/16 11:56 Pulse Ox 96 11/09/16 11:56 Intake & Output 11/08/16 11/09/16 11/09/16 18:59 06:59 18:59 Intake Total 640 Output Total 400 250 Balance 240 -250 Weight 89.5 kg Intake: IV 100 Oral 540 Output: Urine 400 250 Other: Voiding Method Toilet Toilet # Voids 1 - Exam Obese, comfortable likely distress.Head exam was generally normal. There was no scleral icterus or corneal arcus. Mucous membranes were moist. Neck is short and supple and there is significant crowding of the posterior oropharynx. There is no goiter or neck masses. Lungs sounds are diminished bilaterally especially in lung bases. Few crackles can be appreciated in the lung bases bilaterally. No wheezes. No rhonchi. Cardiac exam revealed the PMI to be normally situated and sized. The rhythm was regular and no extrasystoles were noted during several minutes of auscultation. The first and second heart sounds were normal and physiologic splitting of the second heart sound was noted. There were no murmurs, rubs, clicks, or gallops. There is accentuation of the second heart sound. No right ventricular heave or thrill. A faint grade 2/6 systolic ejection murmur can be also appreciated over the anterior chest. Abdomen is obese soft nontender. Organs cannot be accurately palpated due to obesity. No direct tenderness. No rebound tenderness. No guarding. Examination of the extremities revealed easily palpable radial, femoral and pedal pulses. There was no cyanosis, clubbing or edema. - Labs CBC & Chem 7: 11/03/16 06:09 11/09/16 05:50 Labs: Abnormal Lab Results - Last 24 Hours (Table) 11/08/16 11/08/16 11/09/16 Range/Units 16:31 21:02 05:45 Chloride (98-107) mmol/L BUN (7-17) mg/dL Creatinine (0.52-1.04) mg/dL Glucose (74-99) mg/dL POC Glucose (mg/dL) 183 H 174 H 169 H (75-99) mg/dL Phosphorus (2.5-4.5) mg/dL 11/09/16 11/09/16 Range/Units 05:50 11:40 Chloride 97 L (98-107) mmol/L BUN 82 H* (7-17) mg/dL Creatinine 3.20 H (0.52-1.04) mg/dL Glucose 160 H (74-99) mg/dL POC Glucose (mg/dL) 186 H (75-99) mg/dL Phosphorus 4.7 H (2.5-4.5) mg/dL Assessment and Plan Plan: Assessment 1 acute hypoxic respiratory failure with development of bilateral interstitial markings on chest x-ray and based on her history of CHF and hypertensive heart disease and diastolic dysfunction slightly that her shortness of breath is related to interstitial edema/CHF. Computed tomography scan of the chest was consistent with congestive heart failure. 2 nonoliguric acute kidney injury secondary to acute tubular necrosis from cardiorenal syndrome. The patient is now on hemodialysis. Creatinine improving. 3 coronary artery disease with previous coronary intervention and stenting 4 CHF with previous echocardiogram indicating a low ejection fraction of 20-25% yet the most recent echocardiogram showed improvement in the LV function with a component of diastolic dysfunction/hypertensive heart disease 4 diabetes mellitus 5 previous history of CVA 6 hypertension 7 hyperlipidemia 8 chronic renal failure 9 breast cancer with previous bilateral mastectomy and implants 10 anxiety. 11 osteoarthritis Plan: The patient was seen and evaluated by Dr. Haddad. Her chest x-ray did reveal evidence of slight improvement in the congestive heart failure. The plan is for repeat renal replacement therapy today. In the interim she'll continue on diuretics. We'll continue to titrate down the FiO2 while maintaining O2 saturations greater than 90%. We'll continue to follow.
--- NOTE | 2016-11-09 15:11 | P.PN ---
Subjective 66-year-old female who was recently discharged home from the hospital. She has a history of prior TIA, diabetes, hyperlipidemia, hypertension, renal disease, seizure disorder, prior congestive heart failure, chronic kidney disease. She presented to the hospital with symptoms of progressively worsening shortness of breath. Patient had just recently been discharged home from the hospital states that she had received some diuresis in the emergency room and repeat presented to the hospital within 24 hours again quite short of breath. Her BNP level was 8000 on admission. Troponins were also elevated, consistent with her chronic renal failure. Patient was seen and examined this morning, continues to feel short of breath overall. She is scheduled to undergo a CAT scan of the chest today as ordered by pulmonary to rule out underlying pulmonary fibrosis. Continues to be on IV Lasix. 11/07/2016 Patient was seen and examined this morning, feeling about the same. BUN 110, creatinine 3.8, potassium 3.8. Patient was seen today by nephrology and is recommended to initiate dialysis tomorrow. She will be scheduled for a catheter placement today. 11/08/2016. Patient seen and examined this morning, dialysis catheter was not placed yesterday but it is scheduled to be placed at 1:00 today.BUN 117, creatinine 4.04 today. Potassium 3.3. 11/09/2016, patient was seen today on the telemetry unit. Breathing is much improved. She did undergo one dialysis treatment and is scheduled again to undergo dialysis today. Creatinine today is 3.2 with a BUN of 82. Objective - Vital Signs Vital signs: Vital Signs Temp 98 F 11/09/16 11:56 Pulse 66 11/09/16 11:56 Resp 16 11/09/16 11:56 BP 175/74 11/09/16 11:56 Pulse Ox 96 11/09/16 11:56 Intake & Output 11/08/16 11/09/16 11/09/16 18:59 06:59 18:59 Intake Total 640 Output Total 400 250 Balance 240 -250 Weight 89.5 kg Intake: IV 100 Oral 540 Output: Urine 400 250 Other: Voiding Method Toilet Toilet # Voids 1 - Exam PHYSICAL EXAMINATION: HEENT: Head is atraumatic, normocephalic. Pupils equal, round. Neck is supple. There is no elevated jugular venous pressure. HEART EXAMINATION: Heart sounds regular, S1 and S2 normal. No murmur or gallop heard. CHEST EXAMINATION: Lungs reveal diminished air entry bilaterally coarse rales bilaterally. No chest wall tenderness is noted on palpation or with deep breathing. ABDOMEN: Soft, nontender. Bowel sounds are heard. No organomegaly noted. EXTREMITIES: 2+ peripheral pulses with evidence of trace peripheral edema and no calf tenderness noted. NEUROLOGIC patient is awake, alert and oriented x3. - Labs CBC & Chem 7: 11/03/16 06:09 11/09/16 05:50 Labs: Abnormal Lab Results - Last 24 Hours (Table) 11/08/16 11/08/16 11/09/16 Range/Units 16:31 21:02 05:45 Chloride (98-107) mmol/L BUN (7-17) mg/dL Creatinine (0.52-1.04) mg/dL Glucose (74-99) mg/dL POC Glucose (mg/dL) 183 H 174 H 169 H (75-99) mg/dL Phosphorus (2.5-4.5) mg/dL 11/09/16 11/09/16 Range/Units 05:50 11:40 Chloride 97 L (98-107) mmol/L BUN 82 H* (7-17) mg/dL Creatinine 3.20 H (0.52-1.04) mg/dL Glucose 160 H (74-99) mg/dL POC Glucose (mg/dL) 186 H (75-99) mg/dL Phosphorus 4.7 H (2.5-4.5) mg/dL Assessment and Plan Plan: Assessment and plan #1 acute on chronic diastolic congestive heart failure #2 noncompliance with medications #3 hypertension #4 hyperlipidemia #5 anemia of chronic disease #6 mild troponin leak likely secondary to heart failure and renal failure #7 acute on chronic kidney failure, initiated on dialysis yesterday. #8 coronary artery disease with prior stent placement #9 prior CVA #10 breast cancer with prior bilateral mastectomy and implants Plan Cardiology's perspective, we will recommend to continue the patient on her current medications she is scheduled for dialysis again this afternoon. DNP note has been reviewed, I agree with a documented findings and plan of care. Patient was seen and examined.
[2016-11-09 16:40] LABS: Glucose,Whole Blood 135 mg/dL (75-99)
[2016-11-09] MEDS: ASPIRIN 325 MG TAB PO SCH (17:39)
[2016-11-09] MEDS: ALLOPURINOL 100 MG TAB PO SCH (17:39)
[2016-11-09] MEDS: ISOSORBIDE MONONITRATE ER 60 MG TAB.ER.24H PO SCH (17:40)
--- NOTE | 2016-11-09 17:55 | P.PN ---
Subjective Progress note being dictated for Dr. Loredo Interval history:66 yo female presenting with worsening dyspnea since this morning. Patient was discharged yesterday after being treated for congestive heart failure exacerbation. Patient states she went home did not take any of her medications and this morning took only her Lasix. She was in the process of organizing her medications and did not have a chance to take them. She did not eat dinner last night. Denies cough. Denies chest pain. Denies lower extremity swelling. Patient states she slept on her back overnight. patient is coming up orthopnea and PND and patient is found to have worsening pulmonary edema on the chest x-ray patient was started on IV Lasix here. 11/03/2016. Receiving IV Ferrlicit. Continues on sodium bicarb. Breathing improved but still short of breath with exertion. O2 sat of 79% on room air after ambulation. Maintained on Lasix IV push, creatinine currently 3.5. Nephrology discussing replacement therapy, peritoneal dialysis. Denies chest pain, palpitations or increasing shortness of breath. 11/04/2016 during the night patient was awakened by increased shortness of breath, received additional Lasix 80 IV push. Worsening renal function, BUN 88 , creatinine 3.84. Lasix dose decreased per nephrology .Breathing improved. F/ U chest x-ray reporting interstitial venous congestion versus interstitial pneumonitis, underlying COPD or interstitial lung disease. 11/05/2016 Patient continues to have significant pulmonary edema, IV Lasix dose was increased will continue to monitor. The of the chest is consistent with pulmonary edema. 11/06/2016 Patient is pretty status did not change. Patient is urinating very little in spite of increased dose of Lasix in nephrology will be evaluated tomorrow for possible renal replacement therapy. Patient is complaining of increasing tightness today because of uremia most probably 11/07/2016 maintained on Lasix IV push-24 hour I&O does not reflect negative fluid balance; Zaroxolyn added. patient has decided to proceed with temporary dialysis catheter placement, and initiation of hemodialysis. Complains of fatigue and shortness of breath. Denies chest pain, palpitations. 11/08/2016 awaiting placement of temporary dialysis catheter, scheduled for today. Maintained on both Lasix and Zaroxolyn, dyspnea unchanged. BUN 117, creatinine 4.04, potassium 3.3. Denies chest pain, palpitations. Afebrile. 11/09/2016. Status post placement of temporary dialysis catheter with first hemodialysis treatment yesterday . Tolerated well. chest x-ray reporting slight improvement in CHF. Maintained on Lasix IV push. Breathing improved with oxygen weaned down to 2 L nasal cannula, maintaining O2 sats of 92-96%. Doesn't feel " as tight". Scheduled for second dialysis scheduled for today. Objective - Vital Signs Vital signs: Vital Signs Temp 98.5 F 11/09/16 15:32 Pulse 63 11/09/16 15:32 Resp 16 11/09/16 15:32 BP 163/74 11/09/16 15:32 Pulse Ox 92 L 11/09/16 15:32 Intake & Output 11/08/16 11/09/16 11/09/16 18:59 06:59 18:59 Intake Total 640 Output Total 400 250 Balance 240 -250 Weight 89.5 kg Intake: IV 100 Oral 540 Output: Urine 400 250 Other: Voiding Method Toilet Toilet # Voids 1 - Exam GENERAL: Sitting up in chair, alert and oriented x3, no acute distress. Well developed, well nourished. HEENT: Pupils are round and equally reacting to light. EOMI. No scleral icterus. No conjunctival pallor. Normocephalic, atraumatic. CARDIOVASCULAR: S1 and S2 present. Positive systolic murmur, no rubs, or gallops. PULMONARY: Diminshed, no wheezing, fine bibasilar crackles. No rhonchi ABDOMEN: Soft, nontender, nondistended, normoactive bowel sounds. No palpable organomegaly. MUSCULOSKELETAL: No joint swelling or deformity. EXTREMITIES: No cyanosis, clubbing; positive edema. NEUROLOGICAL: Gross neurological examination did not reveal any focal deficits. SKIN: No rashes. - Labs CBC & Chem 7: 11/03/16 06:09 11/09/16 05:50 Labs: Abnormal Lab Results - Last 24 Hours (Table) 11/08/16 11/09/16 11/09/16 Range/Units 21:02 05:45 05:50 Chloride 97 L (98-107) mmol/L BUN 82 H* (7-17) mg/dL Creatinine 3.20 H (0.52-1.04) mg/dL Glucose 160 H (74-99) mg/dL POC Glucose (mg/dL) 174 H 169 H (75-99) mg/dL Phosphorus 4.7 H (2.5-4.5) mg/dL 11/09/16 11/09/16 Range/Units 11:40 16:39 Chloride (98-107) mmol/L BUN (7-17) mg/dL Creatinine (0.52-1.04) mg/dL Glucose (74-99) mg/dL POC Glucose (mg/dL) 186 H 135 H (75-99) mg/dL Phosphorus (2.5-4.5) mg/dL Assessment and Plan Plan: 1. congestive heart failure chronic diastolic dysfunctionwith acute exacerbation. 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 cardiorenal syndrome. Status post temporary dialysis catheter and initiation of hemodialysis. #3 hypertension 4Hyperlipidemia 5 anemia of chronic disease, iron deficient #6 depression #7 acute hypoxic respiratory failure secondary to interstitial venous congestion , possibly interstitial pneumonitis,;underlying COPD or interstitial lung disease per chest x-ray. Plan: Continue on current medication regime , diuretics, sodium bicarb, monitoring and symptomatic treatment. Second hemodialysis session today as mentioned above.surgical consult for PD placement, Close monitoring of renal function, electrolytes with repeat labs ordered for a.m. discharge planning in progress for tomorrow. The impression and plan of care has been dictated as directed. : I performed a H&P examination of this patient and discussed the same with the dictator. I agree with the dictator's note. Any additional findings/opinions/ etc. will be noted.
[2016-11-09 21:21] LABS: Glucose,Whole Blood 220 mg/dL (75-99)
[2016-11-09] MEDS: amLODIPine 10 MG TAB PO SCH (21:40)
[2016-11-10 06:03] LABS: Glucose,Whole Blood 170 mg/dL (75-99)
[2016-11-10] MEDS: CARVEDILOL 12.5 MG TAB PO SCH (06:47)
[2016-11-10] MEDS: INSULIN LISPRO (humaLOG) 300 UNIT/3 ML VIAL SQ SCH ×2 (06:47→11:48)
[2016-11-10 07:22] LABS: Calcium 8.2 mg/dL (8.4-10.2); Potassium 3.7 mmol/L (3.5-5.1)
[2016-11-10 07:57] VITALS: RESP 17; TEMP 98.7
[2016-11-10] MEDS: FUROSEMIDE 10 MG/ML 10 ML VIAL IV SCH (07:57)
[2016-11-10] MEDS: ISOSORBIDE MONONITRATE ER 60 MG TAB.ER.24H PO SCH (07:58)
[2016-11-10] MEDS: ALLOPURINOL 100 MG TAB PO SCH (07:58)
[2016-11-10] MEDS: ATORVASTATIN 80 MG TAB PO SCH (07:58)
[2016-11-10] MEDS: ASPIRIN 325 MG TAB PO SCH (07:59)
[2016-11-10] MEDS: METOLAZONE 5 MG TAB PO SCH (07:59)
[2016-11-10] MEDS: ESCITALOPRAM 20 MG TAB PO SCH (07:59)
[2016-11-10] MEDS: SODIUM BICARBONATE TAB 650 MG TAB PO SCH (07:59)
--- NOTE | 2016-11-10 08:47 | P.PN ---
Subjective Patient is seen in follow-up for acute kidney injury on chronic kidney disease. Patient has chronic kidney disease stage IV with baseline creatinine near 2.5 secondary to nephrosclerosis and diabetic kidney disease. Patient presented to the hospital with dyspnea. She does have history of diastolic CHF. Chest x- ray and CT are suggestive of fluid overload. Patient is maintained on Lasix 60 mg IV twice daily along with metolazone. She is currently resting in bed. Denies any lower extremity edema. States she is voiding. No vomiting or diarrhea. She is still dyspneic but improved. She underwent second treatment of hemodialysis on November 09. Vital signs are stable. General: The patient appeared well nourished and normally developed. HEENT: Head exam is unremarkable. Neck is without jugular venous distension. LUNGS: Lungs are clear to auscultation and percussion. Breath sounds decreased. HEART: Rate and Rhythm are regular. First and second heart sounds normal. No murmurs, rubs or gallops. ABDOMEN: Abdominal exam reveals normal bowel sounds. Non-tender and non- distended. No evidence of peritonitis. EXTREMITITES: No clubbing, cyanosis, or edema. Objective - Vital Signs Vital signs: Vital Signs Temp 98.7 F 11/10/16 07:56 Pulse 62 11/10/16 08:00 Resp 17 11/10/16 08:00 BP 172/74 11/10/16 07:56 Pulse Ox 92 L 11/10/16 07:56 Intake & Output 11/09/16 11/10/16 11/10/16 18:59 06:59 18:59 Intake Total 800 Output Total 2450 Balance -2450 800 Weight 86.7 kg Intake: Oral 800 Output: Urine 250 Other 2200 Other: Voiding Method Toilet Toilet Toilet # Voids 1 0 # Bowel Movements 1 0 - Labs CBC & Chem 7: 11/03/16 06:09 11/10/16 05:47 Labs: Abnormal Lab Results - Last 24 Hours (Table) 11/09/16 11/09/16 11/09/16 Range/Units 11:40 16:39 20:56 BUN (7-17) mg/dL Creatinine (0.52-1.04) mg/dL Glucose (74-99) mg/dL POC Glucose (mg/dL) 186 H 135 H 220 H (75-99) mg/dL Calcium (8.4-10.2) mg/dL 11/10/16 11/10/16 Range/Units 05:47 05:55 BUN 61 H (7-17) mg/dL Creatinine 2.99 H (0.52-1.04) mg/dL Glucose 147 H (74-99) mg/dL POC Glucose (mg/dL) 170 H (75-99) mg/dL Calcium 8.2 L (8.4-10.2) mg/dL Assessment and Plan Plan: Assessment: #1. Nonoliguric acute kidney injury secondary to ATN from cardiorenal syndrome. Now hemodialysis dependent. #2. Chronic kidney disease stage IV secondary to diabetic kidney disease and nephrosclerosis with baseline creatinine near 2.5. #3. Diastolic CHF. #4. Anemia of chronic kidney disease. Iron deficiency also noted - status post 3 doses of IV iron. #5. Diabetes mellitus. #6. Metabolic acidosis secondary to chronic kidney disease. Improved. #7. Fluid overload. Improved. #8. Hypokalemia from diuresis. Magnesium replete. Improved. Plan: Continue Lasix 60 mg IV twice daily - changed to oral upon discharge. Maintain metolazone 5 mg once daily. Maintain sodium bicarbonate supplementation - dose decreased.. Avoid nephrotoxic agents and hypotensive episodes. Repeat electrolytes in the morning. Third treatment of hemodialysis today. PD catheter placed next week. Vein mapping for AV fistula has been set up. care transition manager on board to help facilitate outpatient hemodialysis set up. Stable to be discharged home from nephrology standpoint after dialysis today.
[2016-11-10] MEDS ORDERED: SODIUM BICARBONATE TAB 650 MG TAB PO SCH (09:00)
--- NOTE | 2016-11-10 10:14 | P.DS ---
Providers Date of admission: 11/02/16 12:06 Expected date of discharge: 11/10/16 Attending physician: Raiza Loredo Consults: 11/02/16 14:17 Consult Physician Routine Consulting Provider: Phillip Lala Consult Reason/Comments: CKD and ANA Do you want consulting provider notified?: Yes 11/02/16 22:21 Consult Physician Routine Consulting Provider: [facility] Consult Reason/Comments: CHF exacerbation, positive troponins Do you want consulting provider notified?: Yes, Notify in am 11/04/16 17:27 Consult Physician Routine Consulting Provider: Chasity Haddad Consult Reason/Comments: Hypoxia, COPD, or interstitial lung disease Do you want consulting provider notified?: Yes 11/07/16 08:39 Consult Physician Routine Consulting Provider: Alfonso Caal Consult Reason/Comments: dialysis cath placement Do you want consulting provider notified?: Yes 11/09/16 08:50 Consult Physician Routine Consulting Provider: Chuy Steel Consult Reason/Comments: placement of peritoneal dialysis catheter this admission Do you want consulting provider notified?: Yes [facility]: Final Diagnoses: 1. congestive heart failure chronic diastolic dysfunctionwith acute exacerbation. #2 chronic kidney disease stage 4 secondary to diabetic nephropathy with a competent of prerenal azotemia secondary to congestive heart failure exacerbation. cardiorenal syndrome. Status post temporary dialysis catheter and initiation of hemodialysis. #3 hypertension 4Hyperlipidemia 5 anemia of chronic disease, iron deficient #6 depression #7 acute hypoxic respiratory failure secondary to interstitial venous congestion , possibly interstitial pneumonitis,;underlying COPD or interstitial lung disease per chest x-ray. #8 diabetes mellitus, hemoglobin A1c 7.3 Hospital course: This is a 66 yo female presenting with worsening dyspnea , recurrent CHF,fluid volumeoverload discharged yesterday, with a history of chronic renal failure. Chest CT and chest x-ray suggestive of fluid overload. Evaluated by multiple consults, cardiology, pulmonary, nephrology, vascular surgery. Patient has chronic kidney disease stage IV, baseline creatinine near 2.5 secondary to nephrosclerosis and diabetic kidney disease.Diuresis with Lasix IV push without increase in urine output, remained dyspneic. BUN up to 117, Creatinine up to 4.04. Pt. agreed to renal replacement therapy. Permacath placed and hemodialysis initiated. Patient receiving third dialysis treatment today. Patient has been cleared by all consults for discharge. Patient is being discharged home in a stable condition with guarded prognosis. The impression and plan of care has been dictated as directed as a scribe. : I performed a H&P examination of this patient and discussed the same with the dictator. I agree with the dictator's note. Any additional findings/opinions/ etc. will be noted. Patient Condition at Discharge: Stable Plan - Discharge Summary New Discharge Prescriptions: New Furosemide [Lasix] 60 mg PO BID #90 tablet Metolazone [Zaroxolyn] 5 mg PO DAILY #30 tab Sennosides-Docusate Sodium [Senokot-S] 1 each PO BID PRN tab PRN Reason: Constipation traMADol HCl [Ultram] 50 mg PO QID PRN #20 tab PRN Reason: Pain INSULIN LISPRO (HumaLOG) [humaLOG] 0 unit SQ ACHS #1 vial Continue Atorvastatin [Lipitor] 80 mg PO DAILY Aspirin 325 mg PO DAILY tab amLODIPine [Norvasc] 10 mg PO DAILY tab Escitalopram [Lexapro] 20 mg PO DAILY Allopurinol [Zyloprim] 200 mg PO DAILY Biotin 5 mg PO DAILY Calcitriol [Rocaltrol] 0.5 mcg PO MOWEFR Hydrocortisone Cream [Hydrocortisone 2.5% Cream] 1 applic TOPICAL BID PRN PRN Reason: On Chest Carvedilol [Coreg*] 12.5 mg PO BID-W/MEALS #30 tab hydrALAZINE HCL [Apresoline] 75 mg PO TID #270 tab Isosorbide Mononitrate ER [Imdur] 60 mg PO DAILY #30 tab Changed Sodium Bicarbonate Tab 650 mg PO BID #60 tab Discontinued Losartan Potassium [Cozaar] 50 mg PO DAILY Furosemide [Lasix] 40 mg PO DAILY #30 tablet Discharge Medication List Atorvastatin [Lipitor] 80 mg PO DAILY 12/29/13 [History] Aspirin 325 mg PO DAILY tab 04/27/15 [Rx] amLODIPine [Norvasc] 10 mg PO DAILY tab 04/27/15 [Rx] Allopurinol [Zyloprim] 200 mg PO DAILY 10/30/16 [History] Biotin 5 mg PO DAILY 10/30/16 [History] Calcitriol [Rocaltrol] 0.5 mcg PO MOWEFR 10/30/16 [History] Escitalopram [Lexapro] 20 mg PO DAILY 10/30/16 [History] Hydrocortisone Cream [Hydrocortisone 2.5% Cream] 1 applic TOPICAL BID PRN [History] Carvedilol [Coreg*] 12.5 mg PO BID-W/MEALS #30 tab 11/01/16 [Rx] Isosorbide Mononitrate ER [Imdur] 60 mg PO DAILY #30 tab 11/01/16 [Rx] hydrALAZINE HCL [Apresoline] 75 mg PO TID #270 tab 11/01/16 [Rx] Furosemide [Lasix] 60 mg PO BID #90 tablet 11/10/16 [Rx] INSULIN LISPRO (HumaLOG) [humaLOG] 0 unit SQ ACHS #1 vial 11/10/16 [Rx] Metolazone [Zaroxolyn] 5 mg PO DAILY #30 tab 11/10/16 [Rx] Sennosides-Docusate Sodium [Senokot-S] 1 each PO BID PRN tab 11/10/16 [Rx] Sodium Bicarbonate Tab 650 mg PO BID #60 tab 11/10/16 [Rx] traMADol HCl [Ultram] 50 mg PO QID PRN #20 tab 11/10/16 [Rx] Follow up Appointment(s)/Referral(s): [facility], [NON-STAFF] - Karen Stephen III, MD [Primary Care Provider] - 3 Days Phillip Lala DO [STAFF PHYSICIAN] - 1 Week Alfonso Caal MD [STAFF PHYSICIAN] - 11/11/16 Chasity Haddad MD [STAFF PHYSICIAN] - 2 Weeks Chuy Steel MD [Medical Doctor] - 1 Week (PD cath.) Ambulatory/Diagnostic Orders: Complete Blood Count w/diff [LAB.AMB] Time Frame: 3 Days, Location: Determined By Patient Activity/Diet/Wound Care/Special Instructions: Vein Mapping scheduled at 's office on November 11 at 11am. Confirm cardiology follow-up appointment per to discharge. Diet: Consistent carb,"CHF DIET", 2000 mL fluid restriction per 24 hours Accu-Cheks before meals and at bedtime, maintain log and take to follow-up visit with PCP for further recommendations; currently on sliding scale as diet intake fair Activity: Limited until follow up Hemodialysis as per nephrology
[2016-11-10 10:51] VITALS: BMI 33.8
[2016-11-10 11:24] LABS: Glucose,Whole Blood 159 mg/dL (75-99)
[2016-11-10 11:41] VITALS: BP 140/63; PULSE 60
[2016-11-10] MEDS: hydrALAZINE HCL 25 MG TAB PO SCH (11:41)
--- NOTE | 2016-11-10 12:00 | P.PN ---
Subjective 66-year-old female patient who is having difficulty in breathing. Head the patient has been having acute hypoxic respiratory failure and currently she is on oxygen at 4 L/m nasal cannula. Her chest x-ray findings is typical of CHF. She has an extensive cardiac history. Several years ago she was diagnosed having systolic dysfunction with an ejection fraction of 20-25% and hypertensive heart disease. She is also known to have coronary artery disease and she has undergone previous coronary artery stenting. She has had history of breast cancer with bilateral mastectomy. Remote history of smoking. No chronic lung disease, asthma or COPD. No history of interstitial lung disease. She was hospitalized on 10/30/2016 for increased shortness of breath. She was diagnosed having acute CHF with diastolic dysfunction. The repeat echocardiogram showed improvement in the LV function with an ejection fraction of 50-55% along with moderately severe concentric left ventricular hypertrophy suggestive of hypertensive heart disease and diastolic dysfunction. Doppler of the lower extremities was negative. VQ scan was of a low probability. The patient was diuresed. The patient was discharged home. Note that she is also a component of chronic renal failure and she follows up with nephrology on a regular basis. 12 hours following her discharge the patient comes back with worsening shortness of breath. Chest x-ray still showing CHF findings and the patient is also found to be hypoxemic. She is obese. She is snoring. She has typical features of obstructive sleep apnea although this has not been officially diagnosed. No major edema over the legs. For the past few days the patient was being diuresis with IV Lasix and she is still having trouble breathing. I reviewed a series of chest x-ray and the findings are consistent with cardiomegaly and pulmonary vessel congestion and possibly small bilateral pleural effusion. No aspiration. No pneumonias. No fever. No chills. No night sweats. On 11/06/2016 the patient is being seen in follow-up. Urine output is minimal at this point and the patient is not responding well to diuretics. She has an acute on top of chronic renal failure and the size of the case and there is consideration for dialysis. CAT scan of the chest was done and this was a high resolution CAT scan of the chest and showed evidence of pulmonary vessel congestion and it well as scattered groundglass changes and infiltration. There is also a right-sided pleural effusion. All this findings are reflective an underlying CHF. No chest pain. No other complaints otherwise for now. On 11/07/2016 the patient is essentially the same condition. The plan is to initiate dialysis. A discussion was done with the family including the patient and her and seems that the patient is agreeable for dialysis. She is still on oxygen about 2 by nasal cannula. She has crackles in lung bases bilaterally. She is not producing much of urine. The patient is on Lasix 60 mg IV every 12 hours and Zaroxolyn was also added at 5 mg by mouth on a daily basis. Vascular surgery has been consulted to initiate insertion of a temporary dialysis catheter for subsequent dialysis. The patient is seen again today 11/08/2016 in follow-up on the selective care unit. She is currently sitting up in a chair at the bedside. She is awake and alert in no acute distress. She still has complaints of dyspnea on minimal exertion. The plan is for hemodialysis catheter insertion and possible renal replacement therapy later today. Her current BUN is 117 with a creatinine of 4.04. She is maintaining O2 saturations in the mid 90s on 4 L/m per nasal cannula. She is currently afebrile. She remains on Lasix 60 mg every 12 hours along with Zaroxolyn. The patient is seen again today 11/09/2016 in follow-up on the selective care unit. She is awake and alert in no acute distress. She is breathing easier today as compared to yesterday. Chest x-ray revealed slight improvement in the congestive heart failure. She did receive 1 round of renal replacement therapy yesterday and is due for another one today. Creatinine is improved to 3.20 with a BUN of 82. Her oxygen requirements have improved she is down to 2 L/m per nasal cannula and maintaining O2 saturations in the mid 90s. She is afebrile. Hemodynamically stable. Patient is seen again today 11/10/2016 in follow-up on the selective care unit. She is awake and alert in no acute distress. She's been up ambulating in her room. She is less short of breath today as compared to yesterday. She is due to receive a third renal replacement therapy treatment again today. 2 L were removed yesterday. Her creatinine is down to 2.99 she does continue to void. She is maintaining good O2 saturations in the 90s on 2 L/m per nasal cannula. She's been hemodynamically stable. Afebrile. Objective - Vital Signs Vital signs: Vital Signs Temp 98.7 F 11/10/16 07:56 Pulse 60 11/10/16 11:40 Resp 17 11/10/16 11:40 BP 140/63 11/10/16 11:40 Pulse Ox 94 L 11/10/16 11:40 Intake & Output 11/09/16 11/10/16 11/10/16 18:59 06:59 18:59 Intake Total 800 118 Output Total 2450 0 Balance -2450 800 118 Weight 86.7 kg 86.7 kg Intake: Oral 800 118 Output: Urine 250 0 Other 2200 Other: Voiding Method Toilet Toilet Toilet # Voids 1 0 # Bowel Movements 1 0 - Exam Obese, comfortable likely distress.Head exam was generally normal. There was no scleral icterus or corneal arcus. Mucous membranes were moist. Neck is short and supple and there is significant crowding of the posterior oropharynx. There is no goiter or neck masses. Right neck dressing is dry and intact. Dialysis catheter in place. Lungs sounds are diminished bilaterally especially in lung bases. Few crackles can be appreciated in the lung bases bilaterally. No wheezes. No rhonchi. Cardiac exam revealed the PMI to be normally situated and sized. The rhythm was regular and no extrasystoles were noted during several minutes of auscultation. The first and second heart sounds were normal and physiologic splitting of the second heart sound was noted. There were no murmurs, rubs, clicks, or gallops. There is accentuation of the second heart sound. No right ventricular heave or thrill. A faint grade 2/6 systolic ejection murmur can be also appreciated over the anterior chest. Abdomen is obese soft nontender. Organs cannot be accurately palpated due to obesity. No direct tenderness. No rebound tenderness. No guarding. Examination of the extremities revealed easily palpable radial, femoral and pedal pulses. There was no cyanosis, clubbing or edema. - Labs CBC & Chem 7: 11/03/16 06:09 11/10/16 05:47 Labs: Abnormal Lab Results - Last 24 Hours (Table) 11/09/16 11/09/16 11/10/16 Range/Units 16:39 20:56 05:47 BUN 61 H (7-17) mg/dL Creatinine 2.99 H (0.52-1.04) mg/dL Glucose 147 H (74-99) mg/dL POC Glucose (mg/dL) 135 H 220 H (75-99) mg/dL Calcium 8.2 L (8.4-10.2) mg/dL 11/10/16 11/10/16 Range/Units 05:55 11:23 BUN (7-17) mg/dL Creatinine (0.52-1.04) mg/dL Glucose (74-99) mg/dL POC Glucose (mg/dL) 170 H 159 H (75-99) mg/dL Calcium (8.4-10.2) mg/dL Assessment and Plan Plan: Assessment 1 acute hypoxic respiratory failure with development of bilateral interstitial markings on chest x-ray and based on her history of CHF and hypertensive heart disease and diastolic dysfunction slightly that her shortness of breath is related to interstitial edema/CHF. Computed tomography scan of the chest was consistent with congestive heart failure. Improving. 2 nonoliguric acute kidney injury secondary to acute tubular necrosis from cardiorenal syndrome. The patient is now on hemodialysis. Creatinine improving. 3 coronary artery disease with previous coronary intervention and stenting 4 CHF with previous echocardiogram indicating a low ejection fraction of 20-25% yet the most recent echocardiogram showed improvement in the LV function with a component of diastolic dysfunction/hypertensive heart disease 4 diabetes mellitus 5 previous history of CVA 6 hypertension 7 hyperlipidemia 8 chronic renal failure 9 breast cancer with previous bilateral mastectomy and implants 10 anxiety. 11 osteoarthritis Plan: The patient was seen and evaluated by Dr. Haddad. The plan is for repeat renal replacement therapy today. We'll continue to titrate down the FiO2 while maintaining O2 saturations greater than 90%. We'll continue to follow.
--- NOTE | 2016-11-10 12:14 | P.PN ---
Subjective 66-year-old female who was recently discharged home from the hospital. She has a history of prior TIA, diabetes, hyperlipidemia, hypertension, renal disease, seizure disorder, prior congestive heart failure, chronic kidney disease. She presented to the hospital with symptoms of progressively worsening shortness of breath. Patient had just recently been discharged home from the hospital states that she had received some diuresis in the emergency room and repeat presented to the hospital within 24 hours again quite short of breath. Her BNP level was 8000 on admission. Troponins were also elevated, consistent with her chronic renal failure. Patient was seen and examined this morning, continues to feel short of breath overall. She is scheduled to undergo a CAT scan of the chest today as ordered by pulmonary to rule out underlying pulmonary fibrosis. Continues to be on IV Lasix. 11/07/2016 Patient was seen and examined this morning, feeling about the same. BUN 110, creatinine 3.8, potassium 3.8. Patient was seen today by nephrology and is recommended to initiate dialysis tomorrow. She will be scheduled for a catheter placement today. 11/08/2016. Patient seen and examined this morning, dialysis catheter was not placed yesterday but it is scheduled to be placed at 1:00 today.BUN 117, creatinine 4.04 today. Potassium 3.3. 11/09/2016, patient was seen today on the telemetry unit. Breathing is much improved. She did undergo one dialysis treatment and is scheduled again to undergo dialysis today. Creatinine today is 3.2 with a BUN of 82. 11/10/2016 Patient seen and examined this morning, currently receiving dialysis, feeling overall much better today. Creatinine 2.9. Objective - Vital Signs Vital signs: Vital Signs Temp 98.7 F 11/10/16 07:56 Pulse 60 11/10/16 11:40 Resp 11/10/16 11:40 BP 140/63 11/10/16 11:40 Pulse Ox 94 L 11/10/16 11:40 Intake & Output 11/09/16 11/10/16 11/10/16 18:59 06:59 18:59 Intake Total 800 118 Output Total 2450 0 Balance -2450 800 118 Weight 86.7 kg 86.7 kg Intake: Oral 800 118 Output: Urine 250 0 Other 2200 Other: Voiding Method Toilet Toilet Toilet # Voids 1 0 # Bowel Movements 1 0 - Exam PHYSICAL EXAMINATION: HEENT: Head is atraumatic, normocephalic. Pupils equal, round. Neck is supple. There is no elevated jugular venous pressure. HEART EXAMINATION: Heart sounds regular, S1 and S2 normal. No murmur or gallop heard. CHEST EXAMINATION: Lungs reveal diminished air entry bilaterally coarse rales bilaterally. No chest wall tenderness is noted on palpation or with deep breathing. ABDOMEN: Soft, nontender. Bowel sounds are heard. No organomegaly noted. EXTREMITIES: 2+ peripheral pulses with evidence of trace peripheral edema and no calf tenderness noted. NEUROLOGIC patient is awake, alert and oriented x3. - Labs CBC & Chem 7: 11/03/16 06:09 11/10/16 05:47 Labs: Abnormal Lab Results - Last 24 Hours (Table) 11/09/16 11/09/16 11/10/16 Range/Units 16:39 20:56 05:47 BUN 61 H (7-17) mg/dL Creatinine 2.99 H (0.52-1.04) mg/dL Glucose 147 H (74-99) mg/dL POC Glucose (mg/dL) 135 H 220 H (75-99) mg/dL Calcium 8.2 L (8.4-10.2) mg/dL 11/10/16 11/10/16 Range/Units 05:55 11:23 BUN (7-17) mg/dL Creatinine (0.52-1.04) mg/dL Glucose (74-99) mg/dL POC Glucose (mg/dL) 170 H 159 H (75-99) mg/dL Calcium (8.4-10.2) mg/dL Assessment and Plan Plan: Assessment and plan #1 acute on chronic diastolic congestive heart failure #2 noncompliance with medications #3 hypertension #4 hyperlipidemia #5 anemia of chronic disease #6 mild troponin leak likely secondary to heart failure and renal failure #7 acute on chronic kidney failure, initiated on dialysis yesterday. #8 coronary artery disease with prior stent placement #9 prior CVA #10 breast cancer with prior bilateral mastectomy and implants Plan Cardiology's perspective, we will recommend to continue the patient on her current medications. We will follow her with you now on an as-needed basis only , please don't hesitate to call with any questions. DNP note has been reviewed, I agree with a documented findings and plan of care. Patient was seen and examined.
== END 2016-11-10 15:34 | disposition home or self-care (01) | DRG 291 ==
LOC: EC 09:37 → 6SEL 12:06
PROVIDERS: ADMIT Internal Medicine; ATTEND Internal Medicine
PROC: 06H033Z Insertion of Infusion Device into Inferior Vena Cava, Percutaneous Approach (ICD-10-PCS; principal; 2016-11-08 13:30)
PROC: B549ZZA Ultrasonography of Inferior Vena Cava, Guidance (ICD-10-PCS; 2016-11-08 13:30)
PROC: 5A1D60Z (ICD-10-PCS; 2016-11-08 13:30)
DX: I13.0 Hypertensive heart and chronic kidney disease with heart failure and stage 1 through stage 4 chronic kidney disease, or unspecified chronic kidney disease (principal); I50.33 Acute on chronic diastolic (congestive) heart failure; N17.0 Acute kidney failure with tubular necrosis; J96.01 Acute respiratory failure with hypoxia; E87.2 Acidosis; J84.9 Interstitial pulmonary disease, unspecified; N18.4 Chronic kidney disease, stage 4 (severe); Z66 Do not resuscitate; E11.21 Type 2 diabetes mellitus with diabetic nephropathy; E11.42 Type 2 diabetes mellitus with diabetic polyneuropathy; E11.22 Type 2 diabetes mellitus with diabetic chronic kidney disease; E11.319 Type 2 diabetes mellitus with unspecified diabetic retinopathy without macular edema; F32.9 Major depressive disorder, single episode, unspecified; G40.909 Epilepsy, unspecified, not intractable, without status epilepticus; I25.10 Atherosclerotic heart disease of native coronary artery without angina pectoris; M19.91 Primary osteoarthritis, unspecified site; F41.9 Anxiety disorder, unspecified; E87.6 Hypokalemia; E66.9 Obesity, unspecified; E61.1 Iron deficiency; G47.33 Obstructive sleep apnea (adult) (pediatric); J44.9 Chronic obstructive pulmonary disease, unspecified; T50.2X5A Adverse effect of carbonic-anhydrase inhibitors, benzothiadiazides and other diuretics, initial encounter; D63.1 Anemia in chronic kidney disease; E78.5 Hyperlipidemia, unspecified; I25.2 Old myocardial infarction; Z79.82 Long term (current) use of aspirin; Z99.2 Dependence on renal dialysis; Z95.5 Presence of coronary angioplasty implant and graft; Z87.891 Personal history of nicotine dependence; Z91.14 Patient's other noncompliance with medication regimen; Z90.13 Acquired absence of bilateral breasts and nipples; Z85.3 Personal history of malignant neoplasm of breast; Z90.710 Acquired absence of both cervix and uterus; Z79.899 Other long term (current) drug therapy; Z86.73 Personal history of transient ischemic attack (TIA), and cerebral infarction without residual deficits; Z88.5 Allergy status to narcotic agent; Z82.49 Family history of ischemic heart disease and other diseases of the circulatory system
CPT/HCPCS: 36415; 36558; 71010; 71020; 71250; 76937; 77001; 80048; 80053; 80074; 82550; 82553; 83036; 83735; 83880; 84100; 84484; 85025; 85610; 85730; 90935; 93005; 96374; 99291